=== PATIENT | male | born 1950 | race American Indian/Alaskan Native ===

== ENCOUNTER 2017-01-12 15:30 | Outpatient (CLI) | payer MEDICARE ==
--- NOTE | 2017-01-12 16:45 | Fluoroscopy Report ---
GI series: Patient with cerebral palsy, no reflux presenting with vomiting and difficulty keeping food down at halfway. Accompanied by his sister. The patient is unable to stand. He was placed on his right side in a horizontal position on x-ray table. He was given liquid barium which he was able to swallow without difficulty. The cervical and thoracic esophagus distended normally although evaluation was limited to this position. There is a broad hiatus hernia with rapid passage of contrast through the esophagus into the stomach. There is rapid transit from stomach into normal-appearing small bowel. No gross evidence of ulceration identified in 2 projections. The patient was rotated toward his right side and given water gross reflux was demonstrated. Impressions: Hiatus hernia with reflux. Recommendation: Speech therapy to evaluate his ability to swallow various consistencies of material. The patient should be in the upright position or on his left side when being fed to minimize reflux. These findings have been explained to the patient's sister.
== END 2017-01-12 15:31 | disposition home or self-care (01) ==
LOC: FLUORO 15:30
PROVIDERS: ATTEND Internal Medicine
DX: K21.9 Gastro-esophageal reflux disease without esophagitis (principal); K44.9 Diaphragmatic hernia without obstruction or gangrene; I73.9 Peripheral vascular disease, unspecified; G80.9 Cerebral palsy, unspecified; F79 Unspecified intellectual disabilities; R56.9 Unspecified convulsions; G11.1 Early-onset cerebellar ataxia; R60.9 Edema, unspecified; M43.8X9 Other specified deforming dorsopathies, site unspecified; R29.3 Abnormal posture
CPT/HCPCS: 74240

== ENCOUNTER 2018-02-02 18:41 | Emergency (ER) | payer MEDICARE ==
[2018-02-02] MEDS ORDERED: NACL 0.9% 1000 ML 1,000 ML IV ONE (20:22)
[2018-02-02] MEDS ORDERED: ZOFRAN IV ONE ×2 (20:28→21:58)
--- NOTE | 2018-02-02 20:35 | Emergency Department Report ---
ED General Adult HPI - General Chief complaint: Nausea/Vomiting/Diarrhea Stated complaint: NAUSEA/VOMITING Time Seen by Provider: 02/02/18 20:01 Source: family, EMS Mode of arrival: Stretcher Limitations: Physical Limitation - History of Present Illness Initial comments: Patient presented to the emergency department via EMS from a local half-way for vomiting that started yesterday. Per the patient's sisters he began vomiting yesterday and has not been able to keep anything down since that time. They denied the patient showing signs of pain. Patient has a history of seizures and is not ambulatory for unknown reasons. The patient's sisters state he began to become less and less ambulatory over the last 5 years to the point where he couldn't walk. - Related Data Home Medications Medication Instructions Recorded Confirmed Last Taken Pantoprazole [Protonix] 40 mg PO QDAY 05/02/13 05/02/13 Unknown Previous Rx's Medication Instructions Recorded Last Taken Type Divalproex Dr [Depakote Dr] 125 mg PO BID #60 tablet 05/09/13 Unknown Rx Docusate Sodium [Colace CAP] 100 mg PO BID #60 capsule 05/09/13 Unknown Rx Furosemide [Lasix] 40 mg PO DAILY #30 tablet 05/09/13 Unknown Rx Metoclopramide [Reglan TAB] 10 mg PO BID #30 tablet 05/09/13 Unknown Rx Phenytoin [Dilantin] 100 mg PO BID #30 capsule 05/09/13 Unknown Rx Ondansetron [Zofran Odt] 4 mg PO Q6HR PRN #12 tab.rapdis 02/02/18 Unknown Rx Sulfamethoxazole/Trimethoprim 1 each PO BID #14 tablet 02/02/18 Unknown Rx [Bactrim DS TAB] Allergies Allergy/AdvReac Type Severity Reaction Status Date / Time No Known Allergies Allergy Verified 05/02/13 21:38 ED Review of Systems ROS: Stated complaint: NAUSEA/VOMITING Other details as noted in HPI Comment: able to assess due to the patient's inability to speak ED Past Medical Hx - Past Medical History Hx Congestive Heart Failure: No Hx Diabetes: No Hx GERD: Yes Hx Liver Disease: Yes (biliary stones) Hx Seizures: Yes Hx Kidney Stones: Yes Hx Asthma: No Hx COPD: No Additional medical history: gallstones, cerebral palsy. - Surgical History Hx Cholecystectomy: Yes Hx Appendectomy: Yes - Social History Smoking Status: Never Smoker Substance Use Type: None - Medications Home Medications: Home Medications Medication Instructions Recorded Confirmed Last Taken Type Pantoprazole [Protonix] 40 mg PO QDAY 05/02/13 05/02/[address] [Depakote Dr] 125 mg PO BID #60 tablet 05/09/13 Unknown Rx Docusate Sodium [Colace CAP] 100 mg PO BID #60 capsule 05/09/13 Unknown Rx Furosemide [Lasix] 40 mg PO DAILY #30 tablet 05/09/13 Unknown Rx Metoclopramide [Reglan TAB] 10 mg PO BID #30 tablet 05/09/13 Unknown Rx Phenytoin [Dilantin] 100 mg PO BID #30 capsule 05/09/13 Unknown Rx Ondansetron [Zofran Odt] 4 mg PO Q6HR PRN #12 tab.rapdis 02/02/18 Unknown Rx Sulfamethoxazole/Trimethoprim 1 each PO BID #14 tablet 02/02/18 Unknown Rx [Bactrim DS TAB] ED Physical Exam - General Limitations: Physical Limitation General appearance: alert, in no apparent distress - Head Head exam: Present: atraumatic, normocephalic - Eye Eye exam: Present: normal appearance, PERRL, EOMI - ENT ENT exam: Present: mucous membranes moist - Neck Neck exam: Present: normal inspection - Respiratory Respiratory exam: Present: normal lung sounds bilaterally. Absent: respiratory distress, wheezes, rales, rhonchi - Cardiovascular Cardiovascular Exam: Present: normal rhythm, other (slightly tachycardic heart rate is 102). Absent: systolic murmur, diastolic murmur, rubs, gallop - GI/Abdominal GI/Abdominal exam: Present: soft, normal bowel sounds. Absent: distended, tenderness - Rectal Rectal exam: Present: deferred - Extremities Exam Extremities exam: Absent: pedal edema, joint swelling - Neurological Exam Neurological exam: Present: alert, other (not able to assess completely due to the patient's baseline status) - Psychiatric Psychiatric exam: Present: other (not able to assess due to the patient's baseline status) - Skin Skin exam: Present: warm, dry, intact, normal color. Absent: rash ED Course Vital Signs 02/02/18 02/02/18 20:06 21:50 Temperature 98.3 F 98.3 F Pulse Rate 105 H 100 H Respiratory 14 14 Rate Blood Pressure 98/68 Blood Pressure 98/68 101/60 [Right] O2 Sat by Pulse 98 96 Oximetry ED Medical Decision Making - Lab Data Result diagrams: 02/02/18 20:39 02/02/18 20:39 - Medical Decision Making Patient had relief of symptoms with IV fluids and IV Zofran Results of the patient's laboratory studies and CT scan were discussed with the patient's sisters Plan is discharge patient home on antibiotics for UTI and Zofran for the nausea Critical care attestation.: If time is entered above; I have spent that time in minutes in the direct care of this critically ill patient, excluding procedure time. ED Disposition Clinical Impression: UTI (urinary tract infection), Nausea & vomiting Disposition: - TO HOME OR SELFCARE Is pt being admited?: No Does the pt Need Aspirin: No Condition: Fair Instructions: Urinary Tract Infection in Men (ED), Acute Nausea and Vomiting ( ED) Prescriptions: Ondansetron [Zofran Odt] 4 mg PO Q6HR PRN #12 tab.rapdis PRN Reason: Nausea Sulfamethoxazole/Trimethoprim [Bactrim DS TAB] 1 each PO BID #14 tablet Referrals: PRIMARY CARE, [Primary Care Provider] - 3-5 Days MURALI BARAHONA MD [Staff Physician] - 3-5 Days Time of Disposition: 22:53
[2018-02-02 20:54] LABS: Basophils # (Auto) 0.1 K/mm3 (0.0-0.1); Basophils % (Auto) 0.5 % (0.0-1.8); Eosinophils # (Auto) 0.1 K/mm3 (0.0-0.4); Eosinophils % (Auto) 0.6 % (0.0-4.3); Hematocrit 49.2 % (35.5-45.6); Hemoglobin 16.3 gm/dl (11.8-15.2); Lymphocytes % (Auto) 6.5 % (13.4-35.0); Mean Corpuscular HGB Conc 33 % (32-34); Mean Corpuscular Hemoglobin 32 pg (28-32); Mean Corpuscular Volume 95 fl (84-94); Monocytes # (Auto) 0.8 K/mm3 (0.0-0.8); Monocytes % (Auto) 5.3 % (0.0-7.3); Platelet Count 163 K/mm3 (140-440); Red Blood Count 5.19 M/mm3 (3.65-5.03); Red Cell Distribution Width 14.1 % (13.2-15.2)
[2018-02-02 21:06] LABS: Albumin 3.4 g/dL (3.9-5); Calcium 8.9 mg/dL (8.4-10.2)
--- NOTE | 2018-02-02 21:30 | Cat Scan Report ---
FINAL REPORT PROCEDURE: CT ABDOMEN PELVIS WO CON TECHNIQUE: Computerized axial tomography of the abdomen and pelvis was performed without intravenous contrast. This study is performed without intravascular contrast material and its sensitivity for abdominal and pelvic pathology, including neoplasms, inflammation, abscess, free fluid, thrombosis, arterial dissection and infarction, is reduced compared with a contrast enhanced study. HISTORY: vomiting COMPARISON: No prior studies are available for comparison. FINDINGS: Visualized lower thorax: No significant abnormality. Liver: Normal size and attenuation. Spleen: Normal size and attenuation. Gallbladder and biliary system: There has been a cholecystectomy.. Pancreas: Normal. Adrenals: Normal. Kidneys: There is a 4 millimeter stone at the left ureterovesical junction causing moderate left hydronephrosis and hydroureter. There are stones in the left kidney measuring up to 2 centimeters in diameter. Right kidney and ureter are unremarkable.. GI tract: There is no bowel obstruction, colitis or enteritis. There is a large amount of stool in the sigmoid and rectum. The appendix is not discretely identified.. Lymph nodes and mesentery: Normal. Vasculature: Normal. Bladder: Normal. Reproductive organs: Normal. Peritoneum: There is no ascites, free air, abscess or adenopathy.. Musculoskeletal structures: No significant abnormality. Other: None. IMPRESSION: There has been a cholecystectomy.. There is a 4 millimeter stone at the left ureterovesical junction causing moderate left hydronephrosis and hydroureter. There are stones in the left kidney measuring up to 2 centimeters in diameter. Right kidney and ureter are unremarkable.. There is no bowel obstruction, colitis or enteritis. There is a large amount of stool in the sigmoid and rectum. The appendix is not discretely identified.. There is no ascites, free air, abscess or adenopathy.. .
[2018-02-02 22:05] LABS: Amorphous Crystals,Urine 1+; Bilirubin,Urine NEG (Negative); Blood,Urine MOD (Negative); Color,Urine Yellow (Yellow)
[2018-02-02 23:04] VITALS: BP 120/66
== END 2018-02-03 02:17 | disposition home or self-care (01) ==
LOC: ED 18:41
DX: N39.0 Urinary tract infection, site not specified (principal); K21.9 Gastro-esophageal reflux disease without esophagitis; Z90.49 Acquired absence of other specified parts of digestive tract
CPT/HCPCS: 36415; 74176; 80053; 81001; 83690; 85025; 96361; 96374; 96376; 99284; J2405; J7030; 96375

== ENCOUNTER 2018-11-17 18:33 | Inpatient (IN) | payer MEDICARE ==
[2018-11-17] MEDS ORDERED: NACL 0.9% 500 ML 500 ML IV ONE (18:47)
[2018-11-17] MEDS ORDERED: NACL 0.9% 1000 ML IV ONE (18:58)
[2018-11-17 19:07] LABS: Basophils # (Auto) 0.1 K/mm3 (0.0-0.1); Basophils % (Auto) 0.4 % (0.0-1.8); Eosinophils # (Auto) 0.1 K/mm3 (0.0-0.4); Eosinophils % (Auto) 0.9 % (0.0-4.3); Hematocrit 38.3 % (35.5-45.6); Hemoglobin 12.9 gm/dl (11.8-15.2); Lymphocytes # (Auto) 1.2 K/mm3 (1.2-5.4); Lymphocytes % (Auto) 8.1 % (13.4-35.0); Mean Corpuscular HGB Conc 34 % (32-34); Mean Corpuscular Volume 95 fl (84-94); Monocytes # (Auto) 1.1 K/mm3 (0.0-0.8); Monocytes % (Auto) 7.5 % (0.0-7.3); Platelet Count 236 K/mm3 (140-440); Red Blood Count 4.02 M/mm3 (3.65-5.03); Red Cell Distribution Width 14.1 % (13.2-15.2)
--- NOTE | 2018-11-17 19:08 | Emergency Department Report ---
ED General Adult HPI - General Chief complaint: Altered Mental Status Stated complaint: GENERAL WEAKNESS Time Seen by Provider: 11/17/18 18:57 Source: EMS Mode of arrival: Stretcher Limitations: Altered Mental Status - History of Present Illness Initial comments: Mr. Marsh is a 68 yo male with hx of cerebral palsy, seizure, PVD, intellectual disability, cerebellar ataxia, GERD, UTI, dysphagia who presents with poor appetite and seizures. Hx obtained from EMS, sister, SNF document, EMR. DBP low 41 mm Hg at SNF. 2 seizures witnessed within the last 24 hours. Sister explained that Mr. Marsh not been himself. He is nonverbal. But he normally is able to get into wheelchair. He is able to feed himself. He has been unresponsive and foaming at the mouth recently. Recent watery diarrhea. Sister is the clinical decision maker. She desires comfort care only. She does not desire aggressive end-of-life care such as intubation or feeding tube. She explained that he has "suffered enough". She just wants to make sure that he is comfortable. -: Gradual, days(s) (1) Treatments Prior to Arrival: none - Related Data Home Medications Medication Instructions Recorded Confirmed Last Taken Pantoprazole [Protonix] 40 mg PO QDAY 05/02/13 05/02/13 Unknown Previous Rx's Medication Instructions Recorded Last Taken Type Divalproex Dr [Depakote Dr] 125 mg PO BID #60 tablet 05/09/13 Unknown Rx Docusate Sodium [Colace CAP] 100 mg PO BID #60 capsule 05/09/13 Unknown Rx Furosemide [Lasix] 40 mg PO DAILY #30 tablet 05/09/13 Unknown Rx Metoclopramide [Reglan TAB] 10 mg PO BID #30 tablet 05/09/13 Unknown Rx Phenytoin [Dilantin] 100 mg PO BID #30 capsule 05/09/13 Unknown Rx Ondansetron [Zofran Odt] 4 mg PO Q6HR PRN #12 tab.rapdis 02/02/18 Unknown Rx Sulfamethoxazole/Trimethoprim 1 each PO BID #14 tablet 02/02/18 Unknown Rx [Bactrim DS TAB] Allergies Allergy/AdvReac Type Severity Reaction Status Date / Time No Known Allergies Allergy Verified 05/02/13 21:38 ED Review of Systems ROS: Stated complaint: GENERAL WEAKNESS Other details as noted in HPI Comment: Unobtainable due to pts medical conditions (nonverbal status) ED Past Medical Hx - Past Medical History Previous Medical History?: Yes Hx Congestive Heart Failure: No Hx Diabetes: No Hx GERD: Yes Hx Liver Disease: Yes (biliary stones) Hx Seizures: Yes Hx Kidney Stones: Yes Hx Asthma: No Hx COPD: No Additional medical history: gallstones. cerebral palsy. peripheral vascular disease. unspecified intellectual disabilities. early onset cerebellar ataxia. abnormal posture. unspecified lack of coordination. dysphagia, oropharyngeal phase. edema - Surgical History Past Surgical History?: Yes Hx Cholecystectomy: Yes Hx Appendectomy: Yes - Social History Smoking Status: Never Smoker Substance Use Type: None - Medications Home Medications: Home Medications Medication Instructions Recorded Confirmed Last Taken Type Pantoprazole [Protonix] 40 mg PO QDAY 05/02/13 05/02/[address] [Depakote Dr] 125 mg PO BID #60 tablet 05/09/13 Unknown Rx Docusate Sodium [Colace CAP] 100 mg PO BID #60 capsule 05/09/13 Unknown Rx Furosemide [Lasix] 40 mg PO DAILY #30 tablet 05/09/13 Unknown Rx Metoclopramide [Reglan TAB] 10 mg PO BID #30 tablet 05/09/13 Unknown Rx Phenytoin [Dilantin] 100 mg PO BID #30 capsule 05/09/13 Unknown Rx Ondansetron [Zofran Odt] 4 mg PO Q6HR PRN #12 tab.rapdis 02/02/18 Unknown Rx Sulfamethoxazole/Trimethoprim 1 each PO BID #14 tablet 02/02/18 Unknown Rx [Bactrim DS TAB] ED Physical Exam - General Limitations: Altered Mental Status General appearance: lethargic, other (contracted extremities shaking) - Head Head exam: Present: atraumatic, normocephalic - Eye Eye exam: Absent: scleral icterus, conjunctival injection - ENT ENT exam: Present: mucous membranes dry - Neck Neck exam: Present: normal inspection - Respiratory Respiratory exam: Present: normal lung sounds bilaterally. Absent: respiratory distress, wheezes, rales, rhonchi - Cardiovascular Cardiovascular Exam: Present: normal rhythm, tachycardia, normal heart sounds. Absent: systolic murmur, diastolic murmur, rubs, gallop - GI/Abdominal GI/Abdominal exam: Present: soft, normal bowel sounds. Absent: distended, tenderness, guarding, rebound - Extremities Exam Extremities exam: Present: other (contracted extremities) - Back Exam Back exam: Present: normal inspection - Neurological Exam Neurological exam: Present: other (nonverbal lethargic) - Psychiatric Psychiatric exam: Present: flat affect - Skin Skin exam: Present: warm, dry, intact, normal color. Absent: rash ED Course Vital Signs 11/17/18 11/17/18 11/17/18 18:40 19:16 19:30 Temperature 99.4 F Pulse Rate 109 H 151 H Respiratory 20 23 Rate Blood Pressure 91/61 192/169 O2 Sat by Pulse 96 91 95 Oximetry 11/17/18 11/17/18 11/17/18 19:46 20:28 20:30 Temperature Pulse Rate 99 H 102 H Respiratory 14 Rate Blood Pressure 157/97 100/64 O2 Sat by Pulse 98 95 95 Oximetry 11/17/18 11/17/18 20:45 21:00 Temperature Pulse Rate 98 H 101 H Respiratory 8 L 11 L Rate Blood Pressure 103/57 88/46 O2 Sat by Pulse 98 97 Oximetry ED Medical Decision Making - Lab Data Result diagrams: 11/17/18 18:50 11/17/18 18:56 - Radiology Data Radiology results: report reviewed AP portable chest one view according to radiology impression: No acute process no infiltrate I personally reviewed the images Head CT without contrast: No acute intracranial abnormality according to radiology impression, chronic ethmoid sinusitis reported - Medical Decision Making Mr. Marsh presents with acute encephalopathy multifactorial, UTI, sepsis, hypoglycemia, status epilepticus given IV fluid, IV antibiotics, IV antiepileptics IV dextrose. I had an extensive conversation with nurse practitioner who has been involved with care of Mr. Marsh who aslo spoke with clinical decision maker No. The [employer] in charge of his care was concerned and surprised that he is admitted. According to POLST read to me over the phone, DNR/DNI status. No hospitalization. Hospice care should be initiated if he had a medical condition requiring hospitalization according to advance directive. Upon arrival the sister No did state that she wanted comfort care only. There are now 5 siblings at the bedside who appeared to be less involved in care. There appears to be a misunderstanding among the family members. Clinical decision maker No is quite frustrated. With discussion of primary care provider, hospitalist and No, decision has been made to for observation admission overnight and likely discharged back to correction facility for supportive care for IV fluids and IV antibiotics. In the setting of sepsis and septic shock, I will not place a central venous catheter. Will not institute pressure therapy. The sister stated "he has suffered enough". Admitted in critical condition for observation, will need palliative care at SNF Critical Care Time: Yes Critical care time in (mins) excluding proc time.: 70 Critical care attestation.: If time is entered above; I have spent that time in minutes in the direct care of this critically ill patient, excluding procedure time. 70 minutes of critical care time excluding procedures were used in the care of the patient. Patient required multiple assessments and interventions. I reviewed the electronic medical record. I spoke with consultants involved in the care of the patient. I updated several family members at the bedside.. ED Disposition Clinical Impression: Acute encephalopathy, UTI (urinary tract infection), Hypoglycemia, Status epilepticus, Cerebral palsy, Sepsis, Septic shock, CKD (chronic kidney disease) Disposition: OP ADMIT IP TO THIS HOSP Is pt being admited?: Yes Does the pt Need Aspirin: No Condition: Stable Referrals: CLIFF VERNON MD [Primary Care Provider] - 3-5 Days
[2018-11-17 19:18] LABS: INR 1.03 (0.87-1.13)
[2018-11-17 19:29] LABS: Albumin 3.4 g/dL (3.9-5); Calcium 8.7 mg/dL (8.4-10.2)
[2018-11-17] MEDS ORDERED: D50W (25GM) Vial IV ONE (19:34)
[2018-11-17] MEDS: MAXIPIME/NS 2 GM/100 ML 2 GM/100 ML BAG IV SCH ×2 (19:42→22:07)
--- NOTE | 2018-11-17 20:21 | XRay Report ---
PROCEDURE: XR CHEST 1V AP TECHNIQUE: Chest radiograph single view. HISTORY: possible Sepsis COMPARISONS: None . FINDINGS: Heart: Normal. Mediastinum/Vessels: Aorta is tortuous. Lungs/Pleural space: No focal infiltrate. Elevation of the right hemidiaphragm. Bony thorax: No acute osseous abnormality. Life support devices: Monitoring devices. IMPRESSION: No acute cardiopulmonary abnormality. This document is electronically signed by Osbaldo Ventura MD., Nov 17 2018 08:19:22 PM ET
--- NOTE | 2018-11-17 20:29 | Cat Scan Report ---
PROCEDURE: CT HEAD/BRAIN WO CON TECHNIQUE: Computerized tomography of the head was performed without contrast material. CT DOSE LENGTH PRODUCT: 1733.5 mGycm HISTORY: ams COMPARISONS: None . FINDINGS: Skull and scalp: Normal . Paranasal sinuses: Mild degree mucosal thickening is noted involving bilateral ethmoid sinuses. . Ventricles and subarachnoid spaces: Normal . Cerebrum: No evidence of hemorrhage, acute infarction or mass . Cerebellum and brainstem: No evidence of hemorrhage, acute infarction or mass . Vasculature: Normal . Other: None . ASPECTS: 10 IMPRESSION: No acute intracranial abnormality Chronic ethmoid sinusitis. . This document is electronically signed by Richard Landry MD., Nov 17 2018 08:27:07 PM ET
[2018-11-17] MEDS ORDERED: KEPPRA 1,000 MG/NS 0.75% 100ML 1,000 MG/100 ML BAG IV ONE (20:56)
[2018-11-17] MEDS ORDERED: D50W (25GM) Syringe IV ONE (21:00)
[2018-11-17 22:12] LABS: Amorphous Crystals,Urine 1+; Bilirubin,Urine NEG (Negative); Blood,Urine MOD (Negative); Color,Urine Amber (Yellow)
[2018-11-17 22:13] LABS: WBC,Urine > 182.0 /HPF (0.0-6.0)
[2018-11-17] MEDS ORDERED: ZOFRAN ONE (22:52)
[2018-11-17] MEDS ORDERED: TYLENOL PO PRN (23:51)
[2018-11-17] MEDS ORDERED: D50W (25GM) Vial IV PRN (23:58)
--- NOTE | 2018-11-18 01:55 | History and Physical Report ---
History of Present Illness Date of examination: 11/17/18 Date of admission: 11/17/18 23:51 Chief complaint: Seizures and altered mental status History of present illness: Mr. Marsh is a 68 yo male -Monegasque male with hx of cerebral palsy, seizure, PVD, intellectual disability, cerebellar ataxia, GERD and dysphagia who was brought to the ED from SNF by EMS on account of recurrent seizures, AMS and poor appetite. Patient is unable to provide history and no family was available to provide history. Per ER chart, patient's DBP was low, 41 mm Hg at the SNF. 2 seizures were also witnessed at the facility within the last 24 hours. It was reported that the patient's sister explained that Mr. Marsh had not been himself lately. He is nonverbal, but he normally was able to get into his wheelchair and feed himself. He has been unresponsive and foaming at the mouth. Recent watery diarrhea was also noted. Patient's sister is the clinical decision maker. She desires comfort care only. She does not want aggressive end-of-life care such as intubation or feeding tube. Past History Past Medical History: GERD, PVD, seizures, other (cerebral palsy, intellectual disability, cerebellar ataxia, and dysphagia) Past Surgical History: appendectomy, cholecystectomy Social history: no significant social history (no reported history of tobacco, alcohol or illicit drug use) Family history: other (could not be obtained because patient is nonverbal) Medications and Allergies Allergies Allergy/AdvReac Type Severity Reaction Status Date / Time No Known Allergies Allergy Verified 05/02/13 21:38 Home Medications Medication Instructions Recorded Confirmed Last Taken Type Pantoprazole [Protonix] 40 mg PO QDAY 05/02/13 05/02/13 Unknown History Divalproex [Malena Nguyen] 125 mg PO BID #60 tablet 05/09/13 Unknown Rx Docusate Sodium [Colace CAP] 100 mg PO BID #60 capsule 05/09/13 Unknown Rx Furosemide [Lasix] 40 mg PO DAILY #30 tablet 05/09/13 Unknown Rx Metoclopramide [Reglan TAB] 10 mg PO BID #30 tablet 05/09/13 Unknown Rx Phenytoin [Dilantin] 100 mg PO BID #30 capsule 05/09/13 Unknown Rx Ondansetron [Zofran Odt] 4 mg PO Q6HR PRN #12 tab.rapdis 02/02/18 Unknown Rx Sulfamethoxazole/Trimethoprim 1 each PO BID #14 tablet 02/02/18 Unknown Rx [Bactrim DS TAB] Active Meds: Active Medications Acetaminophen (Tylenol) 650 mg PO Q4H PRN PRN Reason: Pain MILD(1-3)/Fever >100.5/WINKLER Dextrose (D50w (25gm) Vial) 50 gm IV PRN PRN PRN Reason: Hypoglycemia Last Admin: 11/18/18 01:19 Dose: 50 gm Documented by: Cefepime HCl (Maxipime/Ns 2 Gm/100 Ml) 2 gm in 100 mls @ 200 mls/hr IV Q8HR KANU; Protocol Last Admin: 11/17/18 22:07 Dose: Not Given Documented by: Dextrose/Sodium Chloride (D5ns) 1,000 mls @ 150 mls/hr IV DIRECT KANU Ondansetron HCl (Zofran) 4 mg IV Q8H PRN PRN Reason: Nausea And Vomiting Sodium Chloride (Sodium Chloride Flush Syringe 10 Ml) 10 ml IV BID KANU Sodium Chloride (Sodium Chloride Flush Syringe 10 Ml) 10 ml IV PRN PRN PRN Reason: LINE FLUSH Review of Systems ROS unobtainable: due to mental status (patient is nonverbal) Exam - Constitutional Vitals: Temp Pulse Resp BP Pulse Ox 99.4 F 94 H 12 93/55 98 11/17/18 18:40 11/18/18 01:00 11/18/18 01:00 11/18/18 01:00 11/18/18 01:00 General appearance: Present: no acute distress - EENT Eyes: Present: PERRL, EOM intact ENT: clear oral mucosa - Neck Neck: Present: supple - Respiratory Respiratory effort: normal Respiratory: bilateral: CTA - Cardiovascular Rhythm: regular Heart Sounds: Present: S1 & S2 - Extremities Extremity abnormal: edema (left lower extremity) - Abdominal General gastrointestinal: Present: soft, non-tender, non-distended, normal bowel sounds Male genitourinary: Present: deferred - Integumentary Integumentary: Present: clear, warm, dry - Musculoskeletal Musculoskeletal: other (contracted bilateral upper extremities) - Psychiatric Psychiatric: other (could not be assessed because patient is nonverbal) - Neurologic Neurologic: other (patient is nonverbal) Results - Labs CBC & Chem 7: 05/10/19 18:50 11/17/18 18:56 Labs: Laboratory Last Values WBC 14.3 K/mm3 (4.5-11.0) H 11/17/18 18:50 RBC 4.02 M/mm3 (3.65-5.03) 11/17/18 18:50 Hgb 12.9 gm/dl (11.8-15.2) 11/17/18 18:50 Hct 38.3 % (35.5-45.6) 11/17/18 18:50 MCV 95 fl (84-94) H 11/17/18 18:50 MCH 32 pg (28-32) 11/17/18 18:50 MCHC 34 % (32-34) 11/17/18 18:50 RDW 14.1 % (13.2-15.2) 11/17/18 18:50 Plt Count 236 K/mm3 (140-440) 11/17/18 18:50 Lymph % (Auto) 8.1 % (13.4-35.0) L 11/17/18 18:50 [place] % (Auto) 7.5 % (0.0-7.3) H 11/17/18 18:50 Eos % (Auto) 0.9 % (0.0-4.3) 11/17/18 18:50 Baso % (Auto) 0.4 % (0.0-1.8) 11/17/18 18:50 Lymph # 1.2 K/mm3 (1.2-5.4) 11/17/18 18:50 [place] # 1.1 K/mm3 (0.0-0.8) H 11/17/18 18:50 Eos # 0.1 K/mm3 (0.0-0.4) 11/17/18 18:50 Baso # 0.1 K/mm3 (0.0-0.1) 11/17/18 18:50 Seg Neutrophils % 83.1 % (40.0-70.0) H 11/17/18 18:50 Seg Neutrophils # 11.8 K/mm3 (1.8-7.7) H 11/17/18 18:50 PT 14.1 Sec. (12.2-14.9) 11/17/18 18:56 INR 1.03 (0.87-1.13) 11/17/18 18:56 VBG pH 7.395 (7.320-7.420) 11/17/18 18:56 Sodium 139 mmol/L (137-145) 11/17/18 18:56 Potassium 3.9 mmol/L (3.6-5.0) 11/17/18 18:56 Chloride 97.9 mmol/L (98-107) L 11/17/18 18:56 Carbon Dioxide 21 mmol/L (22-30) L 11/17/18 18:56 24 mmol/L 11/17/18 18:56 BUN 37 mg/dL (9-20) H 11/17/18 18:56 2.5 mg/dL (0.8-1.5) H 11/17/18 18:56 Estimated GFR 31 ml/min 11/17/18 18:56 15 % 11/17/18 18:56 Glucose 58 mg/dL (75-100) L 11/17/18 18:56 POC Glucose 64 (70-105) L 11/18/18 01:10 Lactic Acid 1.40 mmol/L (0.7-2.0) 11/17/18 21:50 Calcium 8.7 mg/dL (8.4-10.2) 11/17/18 18:56 0.60 mg/dL (0.1-1.2) 11/17/18 18:56 AST 80 units/L (5-40) H 11/17/18 18:56 ALT 38 units/L (7-56) 11/17/18 18:56 109 units/L (35-129) 11/17/18 18:56 7.0 g/dL (6.3-8.2) 11/17/18 18:56 3.4 g/dL (3.9-5) L 11/17/18 18:56 0.9 % 11/17/18 18:56 19 units/L (13-60) 11/17/18 20:18 [place] (Yellow) 11/17/18 21:39 Cloudy (Clear) 11/17/18 21:39 7.0 (5.0-7.0) 11/17/18 21:39 Ur Specific [place] 1.011 (1.003-1.030) 11/17/18 21:39 100 mg/dl mg/dL (Negative) 11/17/18 21:39 Neg mg/dL (Negative) 11/17/18 21:39 Tr mg/dL (Negative) 11/17/18 21:39 Mod (Negative) 11/17/18 21:39 Neg (Negative) 11/17/18 21:39 Neg (Negative) 11/17/18 21:39 2.0 mg/dL (<2.0) 11/17/18 21:39 Ur Leukocyte Esterase Mod (Negative) 11/17/18 21:39 > 182.0 /HPF (0.0-6.0) H 11/17/18 21:39 52.0 /HPF (0.0-6.0) 11/17/18 21:39 3+ /HPF 11/17/18 21:39 Amorphous Crystals 1+ 11/17/18 21:39 Phenytoin 15.7 ug/mL (10.0-20.0) 11/17/18 21:17 Assessment and Plan Assessment and plan: Severe sepsis secondary to UTI -On IV antibiotic -Blood and urine cultures pending Hypotension due to sepsis -Blood pressure responsive to IV fluid, will monitor Hypoglycemia -On dextrose IV fluid and hypoglycemic protocol Status epilepticus -Probably secondary to the hypoglycemia -Status post loading dose of IV Keppra -Continue IV Keppra and seizure precautions Acute metabolic encephalopathy -Head CT scan negative Transaminitis -Probably secondary to the sepsis Chronic kidney disease stage IV with metabolic acidosis -Creatinine level at baseline DVT prophylaxis with SCD Disposition: Patient is DO NOT RESUSCITATE/DO NOT INTUBATE. He will be placed in observation status with plan for discharge back to the residential facility on hospice care. Time spent: 40 minutes
[2018-11-18] MEDS: D5NS 1,000 ML IV SCH ×3 (02:02→17:13)
[2018-11-18] MEDS: SODIUM CHLORIDE FLUSH SYRINGE 10 ML IV PRN (02:03)
[2018-11-18] MEDS: MAXIPIME/NS 2 GM/100 ML 2 GM/100 ML BAG IV SCH ×2 (06:05→17:13)
[2018-11-18] MEDS ORDERED: NACL 0.9% 1000 ML 1,000 ML IV ONE (09:00)
[2018-11-18] MEDS ORDERED: NACL 0.9% 500 ML 500 ML IV ONE (10:00)
[2018-11-18] MEDS: SODIUM CHLORIDE FLUSH SYRINGE 10 ML IV SCH ×2 (11:04→21:49)
[2018-11-18] MEDS: KEPPRA 1,000 MG in D5W 100 ML IV SCH ×2 (11:04→21:49)
--- NOTE | 2018-11-18 11:52 | Progress Note ---
Assessment and Plan Assessment and plan: Mr. Marsh is a 68 yo male -[place]ir[place] male with hx of cerebral palsy, seizure, PVD, intellectual disability, cerebellar ataxia, GERD and dysphagia who was brought to the ED from SNF by EMS on account of recurrent seizures, AMS and poor appetite. Patient is unable to provide history and no family was available to provide history. Per ER chart, patient's DBP was low, 41 mm Hg at the SNF. 2 seizures were also witnessed at the facility within the last 24 hours. It was reported that the patient's sister explained that Mr. Marsh had not been himself lately. He is nonverbal, but he normally was able to get into his wheelchair and feed himself. Severe sepsis secondary to UTI -On IV antibiotic -Blood and urine cultures pending Hypotension due to sepsis -Blood pressure responsive to IV fluid, will monitor -I gave him a bolus this morning and BPs on the low side of normal Hypoglycemia -On dextrose IV fluid and hypoglycemic protocol Status epilepticus -Probably secondary to the hypoglycemia -Continue IV Keppra and seizure precautions Acute metabolic encephalopathy -Head CT scan negative Transaminitis -Probably secondary to the sepsis Chronic kidney disease stage IV with metabolic acidosis -Creatinine level at baseline DVT prophylaxis with SCD Disposition: Patient is DO NOT RESUSCITATE/DO NOT INTUBATE. Once stable discharge back to the correction facility on hospice care. History Interval history: Patient was seen and evaluated this morning. Patient nonverbal. Nurses reported that his blood pressure was low and I gave him a bolus Hospitalist Physical - Constitutional Vitals: Temp Pulse Resp BP Pulse Ox 98.0 F 80 22 83/52 100 11/18/18 08:14 11/18/18 08:14 11/18/18 08:14 11/18/18 09:54 11/18/18 08:14 General appearance: Present: no acute distress Results - Labs CBC & Chem 7: 11/17/18 18:50 11/17/18 18:56 Labs: Laboratory Last Values WBC 14.3 K/mm3 (4.5-11.0) H 11/17/18 18:50 RBC 4.02 M/mm3 (3.65-5.03) 11/17/18 18:50 Hgb 12.9 gm/dl (11.8-15.2) 11/17/18 18:50 Hct 38.3 % (35.5-45.6) 11/17/18 18:50 MCV 95 fl (84-94) H 11/17/18 18:50 MCH 32 pg (28-32) 11/17/18 18:50 MCHC 34 % (32-34) 11/17/18 18:50 RDW 14.1 % (13.2-15.2) 11/17/18 18:50 Plt Count 236 K/mm3 (140-440) 11/17/18 18:50 Lymph % (Auto) 8.1 % (13.4-35.0) L 11/17/18 18:50 [place] % (Auto) 7.5 % (0.0-7.3) H 11/17/18 18:50 Eos % (Auto) 0.9 % (0.0-4.3) 11/17/18 18:50 Baso % (Auto) 0.4 % (0.0-1.8) 11/17/18 18:50 Lymph # 1.2 K/mm3 (1.2-5.4) 11/17/18 18:50 [place] # 1.1 K/mm3 (0.0-0.8) H 11/17/18 18:50 Eos # 0.1 K/mm3 (0.0-0.4) 11/17/18 18:50 Baso # 0.1 K/mm3 (0.0-0.1) 11/17/18 18:50 Seg Neutrophils % 83.1 % (40.0-70.0) H 11/17/18 18:50 Seg Neutrophils # 11.8 K/mm3 (1.8-7.7) H 11/17/18 18:50 PT 14.1 Sec. (12.2-14.9) 11/17/18 18:56 INR 1.03 (0.87-1.13) 11/17/18 18:56 VBG pH 7.395 (7.320-7.420) 11/17/18 18:56 Sodium 139 mmol/L (137-145) 11/17/18 18:56 Potassium 3.9 mmol/L (3.6-5.0) 11/17/18 18:56 Chloride 97.9 mmol/L (98-107) L 11/17/18 18:56 Carbon Dioxide 21 mmol/L (22-30) L 11/17/18 18:56 24 mmol/L 11/17/18 18:56 BUN 37 mg/dL (9-20) H 11/17/18 18:56 2.5 mg/dL (0.8-1.5) H 11/17/18 18:56 Estimated GFR 31 ml/min 11/17/18 18:56 15 % 11/17/18 18:56 Glucose 58 mg/dL (75-100) L 11/17/18 18:56 POC Glucose 118 (70-105) H 11/18/18 06:34 Lactic Acid 1.40 mmol/L (0.7-2.0) 11/17/18 21:50 Calcium 8.7 mg/dL (8.4-10.2) 11/17/18 18:56 0.60 mg/dL (0.1-1.2) 11/17/18 18:56 AST 80 units/L (5-40) H 11/17/18 18:56 ALT 38 units/L (7-56) 11/17/18 18:56 109 units/L (35-129) 11/17/18 18:56 7.0 g/dL (6.3-8.2) 11/17/18 18:56 3.4 g/dL (3.9-5) L 11/17/18 18:56 0.9 % 11/17/18 18:56 19 units/L (13-60) 11/17/18 20:18 [place] (Yellow) 11/17/18 21:39 Cloudy (Clear) 11/17/18 21:39 7.0 (5.0-7.0) 11/17/18 21:39 Ur Specific [place] 1.011 (1.003-1.030) 11/17/18 21:39 100 mg/dl mg/dL (Negative) 11/17/18 21:39 Neg mg/dL (Negative) 11/17/18 21:39 Tr mg/dL (Negative) 11/17/18 21:39 Mod (Negative) 11/17/18 21:39 Neg (Negative) 11/17/18 21:39 Neg (Negative) 11/17/18 21:39 2.0 mg/dL (<2.0) 11/17/18 21:39 Ur Leukocyte Esterase Mod (Negative) 11/17/18 21:39 > 182.0 /HPF (0.0-6.0) H 11/17/18 21:39 52.0 /HPF (0.0-6.0) 11/17/18 21:39 3+ /HPF 11/17/18 21:39 Amorphous Crystals 1+ 11/17/18 21:39 Phenytoin 15.7 ug/mL (10.0-20.0) 11/17/18 21:17 Active Medications - Current Medications Current Medications: Generic Name Dose Route Start Last Admin Trade Name Freq PRN Reason Stop Dose Admin Acetaminophen 650 mg 11/17/18 23:51 Tylenol PO Q4H PRN Pain MILD(1-3)/Fever >100.5/WINKLER Dextrose 50 gm 11/17/18 23:58 11/18/18 01:19 D50w (25gm) Vial IV 50 gm PRN PRN Administration Hypoglycemia Dextrose/Sodium Chloride 1,000 mls @ 150 mls/hr 11/17/18 23:45 11/18/18 09:00 D5ns IV 150 mls/hr DIRECT KANU Administration Levetiracetam 1,000 mg/ 110 mls @ 400 mls/hr 11/18/18 10:00 11/18/18 11:04 Dextrose IV 400 mls/hr Q12HR KANU Administration Cefepime HCl 2 gm in 100 mls @ 200 mls/hr 11/18/18 18:00 Maxipime/Ns 2 Gm/100 Ml IV Q12H KANU Protocol Ondansetron HCl 4 mg 11/17/18 23:51 Zofran IV Q8H PRN Nausea And Vomiting Sodium Chloride 10 ml 11/18/18 10:00 11/18/18 11:04 Sodium Chloride Flush Syringe 10 Ml IV 10 ml BID KANU Administration Sodium Chloride 10 ml 11/17/18 23:51 11/18/18 02:03 Sodium Chloride Flush Syringe 10 Ml IV 10 ml PRN PRN Administration LINE FLUSH Nutrition/Malnutrition Assess - Dietary Evaluation Nutrition/Malnutrition Findings: Nutrition Notes Start: 11/18/18 09:40 Freq: Status: Active Protocol: Document 11/18/18 09:41 RD (Rec: 11/18/18 09:55 RD [id number]) Co-Sign 11/18/18 09:41 LP Nutrition Notes Need for Assessment generated from: pipe stress engineer Initial or Follow up Brief Note Other Pertinent Diagnosis AMS, seizures, cerebral palsy, dysphagia Current Diet NPO Subjective/Other Information RD screen for Hx difficulty chewing and skin risk assessment. Emiliano score= 13. Pt family requests only comfort care and refuses tube feeding or intubation. Pt is nonverbal. Waiting for swallow evaluation from RN SANE. Nutrition Intervention Follow-Up By: 11/22/18 Additional Comments f/u: POC
[2018-11-18] MEDS ORDERED: TRIPLE ANTIBIOTIC TP ONE (22:32)
[2018-11-19] MEDS: D5NS 1,000 ML IV SCH ×3 (02:13→21:34)
[2018-11-19] MEDS: MAXIPIME/NS 2 GM/100 ML 2 GM/100 ML BAG IV SCH ×2 (05:08→17:37)
--- NOTE | 2018-11-19 08:25 | Progress Note ---
Assessment and Plan Assessment and plan: Mr. Marsh is a 68 yo male -[place]i male with hx of cerebral palsy, seizure, PVD, intellectual disability, cerebellar ataxia, GERD and dysphagia who was brought to the ED from SNF by EMS on account of recurrent seizures, AMS and poor appetite. Patient is unable to provide history and no family was available to provide history. Per ER chart, patient's DBP was low, 41 mm Hg at the SNF. 2 seizures were also witnessed at the facility within the last 24 hours. It was reported that the patient's sister explained that Mr. Marsh had not been himself lately. He is nonverbal, but he normally was able to get into his wheelchair and feed himself. Severe sepsis secondary to UTI -On IV antibiotic -Blood cx ngtd, urine cx was contaminated Hypotension due to sepsis -Blood pressure responsive to IV fluid, will monitor Hypoglycemia -On dextrose IV fluid and hypoglycemic protocol -was due to anorexia, diet started 11/19 Status epilepticus -Probably secondary to the hypoglycemia -Continue IV Keppra and seizure precautions Acute metabolic encephalopathy -Head CT scan negative Transaminitis -Probably secondary to the sepsis Chronic kidney disease stage IV with metabolic acidosis -Creatinine level at baseline DVT prophylaxis with SCD Disposition: Patient is DO NOT RESUSCITATE/DO NOT INTUBATE. Once stable d ischarge back to the custodial facility on hospice care. History Interval history: Review of systems Constitutional: No fevers, no malaise, no joint pains CVS: No chest pain, no orthopnea, no dyspnea on exertion, no pedal edema GI: No abdominal pain, no diarrhea, no vomiting, no constipation Respiratory: no wheezing, no coughing Hospitalist Physical - Physical exam Narrative exam: General.: Appears well, no distress, nontoxic HEENT: Moist mucous membranes, extraocular muscles intact, no lymphadenopathy Neck: supple Cardiac: S1-S2 heard Lungs: clear to auscultation bilaterally Abdomen: soft , nontender, nondistended, bowel sounds positive Extremities: no edema clubbing or cyanosis Skin: no rash or lesions Neurologic: Demented, Bedbound, opens eyes, turn to voice, tries to communicate by making sounds, but nonverbal Psych: calm, and cooperative - Constitutional Vitals: Temp Pulse Resp BP Pulse Ox 98.5 F 74 12 119/58 96 11/19/18 02:41 11/19/18 03:30 11/19/18 02:41 11/19/18 02:41 11/19/18 02:41 General appearance: Present: no acute distress Results - Labs CBC & Chem 7: 11/17/18 18:50 11/19/18 09:23 Labs: Laboratory Last Values WBC 14.3 K/mm3 (4.5-11.0) H 11/17/18 18:50 RBC 4.02 M/mm3 (3.65-5.03) 11/17/18 18:50 Hgb 12.9 gm/dl (11.8-15.2) 11/17/18 18:50 Hct 38.3 % (35.5-45.6) 11/17/18 18:50 MCV 95 fl (84-94) H 11/17/18 18:50 MCH 32 pg (28-32) 11/17/18 18:50 MCHC 34 % (32-34) 11/17/18 18:50 RDW 14.1 % (13.2-15.2) 11/17/18 18:50 Plt Count 236 K/mm3 (140-440) 11/17/18 18:50 Lymph % (Auto) 8.1 % (13.4-35.0) L 11/17/18 18:50 [place] % (Auto) 7.5 % (0.0-7.3) H 11/17/18 18:50 Eos % (Auto) 0.9 % (0.0-4.3) 11/17/18 18:50 Baso % (Auto) 0.4 % (0.0-1.8) 11/17/18 18:50 Lymph # 1.2 K/mm3 (1.2-5.4) 11/17/18 18:50 [place] # 1.1 K/mm3 (0.0-0.8) H 11/17/18 18:50 Eos # 0.1 K/mm3 (0.0-0.4) 11/17/18 18:50 Baso # 0.1 K/mm3 (0.0-0.1) 11/17/18 18:50 Seg Neutrophils % 83.1 % (40.0-70.0) H 11/17/18 18:50 Seg Neutrophils # 11.8 K/mm3 (1.8-7.7) H 11/17/18 18:50 PT 14.1 Sec. (12.2-14.9) 11/17/18 18:56 INR 1.03 (0.87-1.13) 11/17/18 18:56 VBG pH 7.395 (7.320-7.420) 11/17/18 18:56 Sodium 139 mmol/L (137-145) 11/17/18 18:56 Potassium 3.9 mmol/L (3.6-5.0) 11/17/18 18:56 Chloride 97.9 mmol/L (98-107) L 11/17/18 18:56 Carbon Dioxide 21 mmol/L (22-30) L 11/17/18 18:56 24 mmol/L 11/17/18 18:56 BUN 37 mg/dL (9-20) H 11/17/18 18:56 2.5 mg/dL (0.8-1.5) H 11/17/18 18:56 Estimated GFR 31 ml/min 11/17/18 18:56 15 % 11/17/18 18:56 Glucose 58 mg/dL (75-100) L 11/17/18 18:56 POC Glucose 96 (70-105) 11/19/18 05:33 Lactic Acid 1.40 mmol/L (0.7-2.0) 11/17/18 21:50 Calcium 8.7 mg/dL (8.4-10.2) 11/17/18 18:56 0.60 mg/dL (0.1-1.2) 11/17/18 18:56 AST 80 units/L (5-40) H 11/17/18 18:56 ALT 38 units/L (7-56) 11/17/18 18:56 109 units/L (35-129) 11/17/18 18:56 7.0 g/dL (6.3-8.2) 11/17/18 18:56 3.4 g/dL (3.9-5) L 11/17/18 18:56 0.9 % 11/17/18 18:56 19 units/L (13-60) 11/17/18 20:18 [place] (Yellow) 11/17/18 21:39 Cloudy (Clear) 11/17/18 21:39 7.0 (5.0-7.0) 11/17/18 21:39 Ur Specific [place] 1.011 (1.003-1.030) 11/17/18 21:39 100 mg/dl mg/dL (Negative) 11/17/18 21:39 Neg mg/dL (Negative) 11/17/18 21:39 Tr mg/dL (Negative) 11/17/18 21:39 Mod (Negative) 11/17/18 21:39 Neg (Negative) 11/17/18 21:39 Neg (Negative) 11/17/18 21:39 2.0 mg/dL (<2.0) 11/17/18 21:39 Ur Leukocyte Esterase Mod (Negative) 11/17/18 21:39 > 182.0 /HPF (0.0-6.0) H 11/17/18 21:39 52.0 /HPF (0.0-6.0) 11/17/18 21:39 3+ /HPF 11/17/18 21:39 Amorphous Crystals 1+ 11/17/18 21:39 Phenytoin 15.7 ug/mL (10.0-20.0) 11/17/18 21:17 Active Medications - Current Medications Current Medications: Generic Name Dose Route Start Last Admin Trade Name Freq PRN Reason Stop Dose Admin Acetaminophen 650 mg 11/17/18 23:51 Tylenol PO Q4H PRN Pain MILD(1-3)/Fever >100.5/WINKLER Dextrose 50 gm 11/17/18 23:58 11/18/18 01:19 D50w (25gm) Vial IV 50 gm PRN PRN Administration Hypoglycemia Dextrose/Sodium Chloride 1,000 mls @ 150 mls/hr 11/17/18 23:45 11/19/18 02:13 D5ns IV 150 mls/hr DIRECT KANU Administration Levetiracetam 1,000 mg/ 110 mls @ 400 mls/hr 11/18/18 10:00 11/18/18 21:49 Dextrose IV 400 mls/hr Q12HR KANU Administration Cefepime HCl 2 gm in 100 mls @ 200 mls/hr 11/18/18 18:00 11/19/18 05:08 Maxipime/Ns 2 Gm/100 Ml IV 200 mls/hr Q12H KANU Administration Protocol Ondansetron HCl 4 mg 05/10/19 23:51 Zofran IV Q8H PRN Nausea And Vomiting Sodium Chloride 10 ml 11/18/18 10:00 11/18/18 21:49 Sodium Chloride Flush Syringe 10 Ml IV 10 ml BID KANU Administration Sodium Chloride 10 ml 11/17/18 23:51 11/18/18 02:03 Sodium Chloride Flush Syringe 10 Ml IV 10 ml PRN PRN Administration LINE FLUSH Nutrition/Malnutrition Assess - Dietary Evaluation Nutrition/Malnutrition Findings: Nutrition Notes Start: 11/18/18 09:40 Freq: Status: Active Protocol: Document 11/18/18 09:41 RD (Rec: 11/18/18 09:55 RD [id number]) Co-Sign 11/18/18 09:41 LP Nutrition Notes Need for Assessment generated from: shop lead Initial or Follow up Brief Note Other Pertinent Diagnosis AMS, seizures, cerebral palsy, dysphagia Current Diet NPO Subjective/Other Information RD screen for Hx difficulty chewing and skin risk assessment. Emiliano score= 13. Pt family requests only comfort care and refuses tube feeding or intubation. Pt is nonverbal. Waiting for swallow evaluation from LIGHTOUT EXAMINER. Nutrition Intervention Follow-Up By: 11/22/18 Additional Comments f/u: POC
[2018-11-19] MEDS: KEPPRA 1,000 MG in D5W 100 ML IV SCH ×2 (09:48→21:34)
[2018-11-19 10:00] LABS: BUN/Creatinine Ratio 12; Blood Urea Nitrogen 13 mg/dL (9-20); Hemolysis Index 8
[2018-11-19] MEDS: SODIUM CHLORIDE FLUSH SYRINGE 10 ML IV SCH ×2 (12:47→21:37)
[2018-11-20] MEDS: K-PHOS NEUTRAL PO SCH ×5 (01:08→22:59)
[2018-11-20] MEDS: MAXIPIME/NS 2 GM/100 ML 2 GM/100 ML BAG IV SCH ×2 (05:42→18:11)
[2018-11-20] MEDS: D5NS 1,000 ML IV SCH ×2 (05:43→12:13)
[2018-11-20] MEDS: KEPPRA 1,000 MG in D5W 100 ML IV SCH (09:53)
[2018-11-20] MEDS: SODIUM CHLORIDE FLUSH SYRINGE 10 ML IV SCH ×2 (10:02→23:00)
--- NOTE | 2018-11-20 12:30 | Progress Note ---
Assessment and Plan Assessment and plan: Mr. Marsh is a 68 yo male -[place] male with hx of cerebral palsy, seizure, PVD, intellectual disability, cerebellar ataxia, GERD and dysphagia who was brought to the ED from SNF by EMS on account of recurrent seizures, AMS and poor appetite. Patient is unable to provide history and no family was available to provide history. Per ER chart, patient's DBP was low, 41 mm Hg at the SNF. 2 seizures were also witnessed at the facility within the last 24 hours. It was reported that the patient's sister explained that Mr. Marsh had not been himself lately. He is nonverbal, but he normally was able to get into his wheelchair and feed himself. Severe sepsis secondary to UTI -On IV antibiotic -Blood cx ngtd, urine cx was contaminated Hypotension due to sepsis -Blood pressure responsive to IV fluid, will monitor Hypoglycemia -On dextrose IV fluid and hypoglycemic protocol -was due to anorexia, diet started 11/19 Status epilepticus -Probably secondary to the hypoglycemia -Continue IV Keppra and seizure precautions Acute metabolic encephalopathy -Head CT scan negative Transaminitis -Probably secondary to the sepsis Chronic kidney disease stage IV with metabolic acidosis -Creatinine level at baseline DVT prophylaxis with SCD Disposition: Patient is DO NOT RESUSCITATE/DO NOT INTUBATE. Once stable d [facility]charge back to [facility] on [facility] care. History Interval history: Review of systems Constitutional: No fevers, no malaise, no joint pains CVS: No chest pain, no orthopnea, no dyspnea on exertion, no pedal edema GI: No abdominal pain, no diarrhea, no vomiting, no constipation Respiratory: no wheezing, no coughing Hospitalist Physical - Physical exam Narrative exam: General.: Appears well, no distress, nontoxic HEENT: Moist mucous membranes, extraocular muscles intact, no lymphadenopathy Neck: supple Cardiac: S1-S2 heard Lungs: clear to auscultation bilaterally Abdomen: soft , nontender, nondistended, bowel sounds positive Extremities: no edema clubbing or cyanosis Skin: no rash or lesions Neurologic: Bedbound, opens eyes, turn to voice, tries to communicate by making sounds, but nonverbal, demented Psych: calm, and cooperative - Constitutional Vitals: Temp Pulse Resp BP Pulse Ox 98.6 F 73 18 102/63 99 11/20/18 07:55 11/20/18 07:55 11/20/18 07:55 11/20/18 07:55 11/20/18 07:55 General appearance: Present: no acute distress Results - Labs CBC & Chem 7: 11/17/18 18:50 11/19/18 09:23 Labs: Laboratory Last Values WBC 14.3 K/mm3 (4.5-11.0) H 11/17/18 18:50 RBC 4.02 M/mm3 (3.65-5.03) 11/17/18 18:50 Hgb 12.9 gm/dl (11.8-15.2) 11/17/18 18:50 Hct 38.3 % (35.5-45.6) 11/17/18 18:50 MCV 95 fl (84-94) H 11/17/18 18:50 MCH 32 pg (28-32) 11/17/18 18:50 MCHC 34 % (32-34) 11/17/18 18:50 RDW 14.1 % (13.2-15.2) 11/17/18 18:50 Plt Count 236 K/mm3 (140-440) 11/17/18 18:50 Lymph % (Auto) 8.1 % (13.4-35.0) L 11/17/18 18:50 [place] % (Auto) 7.5 % (0.0-7.3) H 11/17/18 18:50 Eos % (Auto) 0.9 % (0.0-4.3) 11/17/18 18:50 Baso % (Auto) 0.4 % (0.0-1.8) 11/17/18 18:50 Lymph # 1.2 K/mm3 (1.2-5.4) 11/17/18 18:50 [place] # 1.1 K/mm3 (0.0-0.8) H 11/17/18 18:50 Eos # 0.1 K/mm3 (0.0-0.4) 11/17/18 18:50 Baso # 0.1 K/mm3 (0.0-0.1) 11/17/18 18:50 Seg Neutrophils % 83.1 % (40.0-70.0) H 11/17/18 18:50 Seg Neutrophils # 11.8 K/mm3 (1.8-7.7) H 11/17/18 18:50 PT 14.1 Sec. (12.2-14.9) 11/17/18 18:56 INR 1.03 (0.87-1.13) 11/17/18 18:56 VBG pH 7.395 (7.320-7.420) 11/17/18 18:56 Sodium 145 mmol/L (137-145) 11/19/18 09:23 Potassium 3.5 mmol/L (3.6-5.0) L 11/19/18 09:23 Chloride 114.4 mmol/L (98-107) H 11/19/18 09:23 Carbon Dioxide 21 mmol/L (22-30) L 11/19/18 09:23 13 mmol/L 11/19/18 09:23 BUN 13 mg/dL (9-20) 11/19/18 09:23 1.1 mg/dL (0.8-1.5) D 11/19/18 09:23 Estimated GFR > 60 ml/min 11/19/18 09:23 12 % 11/19/18 09:23 Glucose 113 mg/dL (75-100) H 11/19/18 09:23 POC Glucose 113 (70-105) H 11/20/18 11:42 Lactic Acid 1.40 mmol/L (0.7-2.0) 11/17/18 21:50 Calcium 8.0 mg/dL (8.4-10.2) L 11/19/18 09:23 Phosphorus 2.30 mg/dL (2.5-4.5) L 11/19/18 09:23 Magnesium 1.80 mg/dL (1.7-2.3) 11/19/18 09:23 0.60 mg/dL (0.1-1.2) 11/17/18 18:56 AST 80 units/L (5-40) H 11/17/18 18:56 ALT 38 units/L (7-56) 11/17/18 18:56 109 units/L (35-129) 11/17/18 18:56 7.0 g/dL (6.3-8.2) 11/17/18 18:56 3.4 g/dL (3.9-5) L 11/17/18 18:56 0.9 % 11/17/18 18:56 19 units/L (13-60) 11/17/18 20:18 [place] (Yellow) 11/17/18 21:39 Cloudy (Clear) 11/17/18 21:39 7.0 (5.0-7.0) 11/17/18 21:39 Ur Specific [place] 1.011 (1.003-1.030) 11/17/18 21:39 100 mg/dl mg/dL (Negative) 11/17/18 21:39 Neg mg/dL (Negative) 11/17/18 21:39 Tr mg/dL (Negative) 11/17/18 21:39 Mod (Negative) 11/17/18 21:39 Neg (Negative) 11/17/18 21:39 Neg (Negative) 11/17/18 21:39 2.0 mg/dL (<2.0) 11/17/18 21:39 Ur Leukocyte Esterase Mod (Negative) 11/17/18 21:39 > 182.0 /HPF (0.0-6.0) H 11/17/18 21:39 52.0 /HPF (0.0-6.0) 11/17/18 21:39 3+ /HPF 11/17/18 21:39 Amorphous Crystals 1+ 11/17/18 21:39 Phenytoin 15.7 ug/mL (10.0-20.0) 11/17/18 21:17 Active Medications - Current Medications Current Medications: Generic Name Dose Route Start Last Admin Trade Name Freq PRN Reason Stop Dose Admin Acetaminophen 650 mg 11/17/18 23:51 Tylenol PO Q4H PRN Pain MILD(1-3)/Fever >100.5/WINKLER Dextrose 50 gm 11/17/18 23:58 11/18/18 01:19 D50w (25gm) Vial IV 50 gm PRN PRN Administration Hypoglycemia Levetiracetam 1,000 mg/ 110 mls @ 400 mls/hr 11/18/18 10:00 11/20/18 09:53 Dextrose IV 11/20/18 14:00 400 mls/hr Q12HR KANU Administration Cefepime HCl 2 gm in 100 mls @ 200 mls/hr 11/18/18 18:00 11/20/18 05:42 Maxipime/Ns 2 Gm/100 Ml IV 200 mls/hr Q12H KANU Administration Protocol Levetiracetam 1,000 mg 11/20/18 22:00 Keppra PO Q12HR KANU Ondansetron HCl 4 mg 11/17/18 23:51 Zofran IV Q8H PRN Nausea And Vomiting Sodium Chloride 10 ml 11/18/18 10:00 11/20/18 10:02 Sodium Chloride Flush Syringe 10 Ml IV 10 ml BID KANU Administration Sodium Chloride 10 ml 11/17/18 23:51 11/18/18 02:03 Sodium Chloride Flush Syringe 10 Ml IV 10 ml PRN PRN Administration LINE FLUSH Sodium Phosphate 250 mg 11/19/18 22:00 11/20/18 09:50 K-Phos Neutral PO 11/21/18 21:59 250 mg QID KANU Administration Nutrition/Malnutrition Assess - Dietary Evaluation Nutrition/Malnutrition Findings: Nutrition Notes Start: 11/18/18 09:40 Freq: Status: Active Protocol: Document 11/18/18 09:41 RD (Rec: 11/18/18 09:55 RD [id number]) Co-Sign 11/18/18 09:41 LP Nutrition Notes 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 Emiliano score= 13. Pt family requests only comfort care and refuses tube feeding or intubation. Pt is nonverbal. Waiting for swallow evaluation from ASSIST[facility] IN NURSING. Nutrition Intervention Follow-Up By: 11/22/18 Additional Comments f/u: POC
[2018-11-20] MEDS: ZOFRAN IV PRN ×2 (15:01→22:59)
[2018-11-20] MEDS: SODIUM CHLORIDE FLUSH SYRINGE 10 ML IV PRN (15:01)
[2018-11-20] MEDS: KEPPRA PO SCH (22:59)
[2018-11-21] MEDS: MAXIPIME/NS 2 GM/100 ML 2 GM/100 ML BAG IV SCH ×2 (06:26→17:11)
[2018-11-21] MEDS: K-PHOS NEUTRAL PO SCH ×3 (09:36→19:00)
[2018-11-21] MEDS: KEPPRA PO SCH (09:36)
[2018-11-21] MEDS: SODIUM CHLORIDE FLUSH SYRINGE 10 ML IV SCH (09:37)
--- NOTE | 2018-11-21 11:09 | Discharge Summary ---
Providers - Providers Date of Admission: 11/20/18 08:12 Attending physician: ADELA NEWBY MD 11/17/18 Consult to Case Management [CONS] Routine Services Needed at Discharge: Other Notified:: ADRYAN Comment:: hospice care 11/20/18 12:47 Physical Therapy Evaluation and Treat [CONS] Routine Comment: Reason For Exam: Weakness Primary care physician: CLIFF VERNON Hospitalization Condition: Stable Hospital course: Mr. Marsh is a 68 yo male -Polish male with hx of cerebral palsy, seizure, PVD, intellectual disability, cerebellar ataxia, GERD and dysphagia who was brought to the ED from SNF by EMS on account of recurrent seizures, AMS and poor appetite. Patient is unable to provide history and no family was available to provide history. Per ER chart, patient's DBP was low, 41 mm Hg at the SNF. 2 seizures were also witnessed at the facility within the last 24 hours. It was reported that the patient's sister explained that Mr. Marsh had not been himself lately. He is nonverbal, but he normally was able to get into his wheelchair and feed himself. -he was treated with IV fluids, antibiotics and anti-seizure medications. He improved, he's being discharged on a course of antibiotics, and his seizure medications where optimized to medications with less side effects. The patient was hypoglycemic upon presentation which was due to poor po intake, as he clinically improved, his PO intake improved and his blood glucose was normalized. The patient was [facility] back to [facility] of [place]. Diagnosis Severe sepsis secondary to UTI Hypotension due to sepsis Hypoglycemia Status epilepticus Acute metabolic encephalopathy Transaminitis Chronic kidney disease stage IV with metabolic acidosis - Disposition: [id number] SNF [facility] Time spent for discharge: 33 mins Core Measure Documentation - Palliative Care Palliative Care/ Comfort Measures: Hospice Care - Core Measures Any of the following diagnoses?: none Exam - Physical Exam Narrative exam: General.: Appears well, no distress, nontoxic HEENT: Moist mucous membranes, extraocular muscles intact, no lymphadenopathy Neck: supple Cardiac: S1-S2 heard Lungs: clear to auscultation bilaterally Abdomen: soft , nontender, nondistended, bowel sounds positive Extremities: no edema clubbing or cyanosis Skin: no rash or lesions Neurologic: Bedbound, opens eyes, turn to voice, tries to communicate by making sounds, but nonverbal, demented Psych: calm, and cooperative - Constitutional Vitals: Temp Pulse Resp BP Pulse Ox 98.3 F 77 19 102/57 96 11/21/18 07:30 11/21/18 07:30 11/21/18 07:30 11/21/18 07:30 11/21/18 07:30 Plan Follow up with: CLIFF VERNON MD [Primary Care Provider] - 3-5 Days Prescriptions: cephALEXin [Keflex] 500 mg PO Q12HR #10 cap levETIRAcetam [Keppra TAB] 1,000 mg PO Q12HR 30 Days #120 tablet
[2018-11-21] MEDS ORDERED: THERAGRAN-M Tab PO SCH (16:00)
[2018-11-21] MEDS ORDERED: VITAMIN C PO SCH (16:00)
[2018-11-21] MEDS ORDERED: ZINC SULFATE PO SCH (16:00)
[2018-11-21] MEDS: SODIUM CHLORIDE FLUSH SYRINGE 10 ML IV PRN (17:13)
[2018-11-21 19:35] VITALS: BP 120/70
== END 2018-11-21 19:45 | DRG 871 ==
LOC: ED 18:33 → 2B-ACE 23:51 → OBSVTOIN 11-20 08:12
PROVIDERS: ADMIT Internal Medicine; ATTEND Internal Medicine
DX: A41.9 Sepsis, unspecified organism (principal); G93.41 Metabolic encephalopathy; N18.4 Chronic kidney disease, stage 4 (severe); N39.0 Urinary tract infection, site not specified; R65.20 Severe sepsis without septic shock; I95.9 Hypotension, unspecified; G40.901 Epilepsy, unspecified, not intractable, with status epilepticus; G80.9 Cerebral palsy, unspecified; I73.9 Peripheral vascular disease, unspecified; K21.9 Gastro-esophageal reflux disease without esophagitis; E16.2 Hypoglycemia, unspecified; R74.0 Nonspecific elevation of levels of transaminase and lactic acid dehydrogenase [LDH]; Z66 Do not resuscitate; Z90.49 Acquired absence of other specified parts of digestive tract; Z79.899 Other long term (current) drug therapy; Z87.442 Personal history of urinary calculi
CPT/HCPCS: 36415; 70450; 71045; 80048; 80053; 80185; 81001; 82140; 82805; 82962; 83690; 83735; 84100; 85025; 85610; 87040; 87086; 87116; 93005; 93010; 96361; 96365; 96375; 96376; G0378; A6250; J0692; J1953; J2405; J7030; J7040; J7042

== ENCOUNTER 2019-02-24 09:26 | Inpatient (IN) | payer MEDICARE ==
[2019-02-24] MEDS ORDERED: NACL 0.9% 1000 ML 1,000 ML IV ONE ×2 (09:40→09:41)
[2019-02-24] MEDS ORDERED: NACL 0.9% 1000 ML IV ONE (09:48)
[2019-02-24] MEDS ORDERED: VANCOMYCIN 1,500 MG in NACL 0.9% 500 ML 500 ML IV ONE (09:48)
[2019-02-24] MEDS ORDERED: VANCOMYCIN PHARMACY TO DOSE IV SCH (10:00)
[2019-02-24] MEDS ORDERED: MAXIPIME/NS 2 GM/100 ML 2 GM/100 ML BAG IV SCH (10:00)
--- NOTE | 2019-02-24 10:24 | Emergency Department Report ---
ED Altered Mental Status HPI - General Chief Complaint: Altered Mental Status Stated Complaint: AMS Time Seen by Provider: 02/24/19 09:43 Source: patient, family, EMS, RN notes reviewed, old records reviewed Mode of arrival: Stretcher Limitations: Physical Limitation - History of Present Illness Initial Comments: Mr. Hernandez is a 68 yo male with hx of cerebral palsy, seizure, UTI, sepsis, intellectual disability, PVD, cerebellar ataxia, GERD, dysphagia who presents with decreased responsiveness and fever. Mr. Hernandez could not swallow according to sister's report. Patient is nonverbal at baseline. Resident at [facility]. Unable to obtain hx from patient. I did obtain hx from sister and EMS. DNR status I have reviewed recent discharge summary and SNF documentation. I treated Mr. Hernandez earlier this year. He was treated for severe sepsis, UTI, encephalopathy, status epilepticus. MD Complaint: altered mental status, decreased responsiveness -: Gradual, days(s) (1) Severity: severe Consistency of Symptoms: getting worse Context: history of similar presen - Related Data Home Medications Medication Instructions Recorded Confirmed Last Taken Pantoprazole [Protonix TAB] 40 mg PO QDAY 05/02/13 11/18/18 Unknown Previous Rx's Medication Instructions Recorded Last Taken Type Divalproex Dr [Depakote Dr] 125 mg PO BID #60 tablet 05/09/13 Unknown Rx Docusate Sodium [Colace CAP] 100 mg PO BID #60 capsule 05/09/13 Unknown Rx Ondansetron [Zofran Odt] 4 mg PO Q6HR PRN #12 tab.rapdis 02/02/18 Unknown Rx cephALEXin [Keflex] 500 mg PO Q12HR #10 cap 11/21/18 Unknown Rx levETIRAcetam [Keppra TAB] 1,000 mg PO Q12HR 30 Days #120 11/21/18 Unknown Rx tablet Allergies Allergy/AdvReac Type Severity Reaction Status Date / Time No Known Allergies Allergy Verified 05/02/13 21:38 ED Review of Systems ROS: Stated complaint: AMS Other details as noted in HPI Comment: Unobtainable due to pts medical conditions (nonverbal) ED Past Medical Hx - Past Medical History Previous Medical History?: Yes Hx Congestive Heart Failure: No Hx Diabetes: No Hx GERD: Yes Hx Liver Disease: Yes (biliary stones) Hx Seizures: Yes (status epilepticus) Hx Kidney Stones: Yes Hx Asthma: No Hx COPD: No Hx Tuberculosis: No Additional medical history: gallstones, cerebral palsy. - Surgical History Past Surgical History?: Yes Hx Cholecystectomy: Yes Hx Appendectomy: Yes - Social History Smoking Status: Never Smoker Substance Use Type: None - Medications Home Medications: Home Medications Medication Instructions Recorded Confirmed Last Taken Type Pantoprazole [Protonix TAB] 40 mg PO QDAY 05/02/13 11/18/[address] [Depakote Dr] 125 mg PO BID #60 tablet 05/09/13 11/18/18 Unknown Rx Docusate Sodium [Colace CAP] 100 mg PO BID #60 capsule 05/09/13 11/18/18 Unknown Rx Ondansetron [Zofran Odt] 4 mg PO Q6HR PRN #12 tab.rapdis 02/02/18 11/18/18 Unknown Rx cephALEXin [Keflex] 500 mg PO Q12HR #10 cap 11/21/18 Unknown Rx levETIRAcetam [Keppra TAB] 1,000 mg PO Q12HR 30 Days #120 11/21/18 Unknown Rx tablet ED Physical Exam - General Limitations: Physical Limitation General appearance: lethargic, other (will open eye to voice) - Head Head exam: Present: atraumatic, normocephalic - Eye Eye exam: Absent: scleral icterus, conjunctival injection - ENT ENT exam: Present: mucous membranes dry - Neck Neck exam: Present: normal inspection, full ROM. Absent: tenderness, meningismus - Respiratory Respiratory exam: Present: normal lung sounds bilaterally. Absent: respiratory distress, wheezes, rales, rhonchi - Cardiovascular Cardiovascular Exam: Present: regular rate, normal rhythm, normal heart sounds. Absent: systolic murmur, diastolic murmur, rubs, gallop - GI/Abdominal GI/Abdominal exam: Present: soft, normal bowel sounds. Absent: distended, tenderness, guarding, rebound - Rectal Rectal exam: Present: deferred - Extremities Exam Extremities exam: Present: other (contracted extremities) - Neurological Exam Neurological exam: Present: altered - Psychiatric Psychiatric exam: Present: flat affect - Skin Skin exam: Present: warm, dry, intact, normal color. Absent: rash, other (no skin breakdown) ED Course Vital Signs 02/24/19 02/24/19 02/24/19 09:31 09:36 09:40 Temperature 98.0 F 98.1 F Pulse Rate 82 77 81 Respiratory 12 14 11 L Rate Blood Pressure 97/56 Blood Pressure 107/47 [Left] O2 Sat by Pulse 96 98 Oximetry 02/24/19 02/24/19 02/24/19 09:45 10:00 10:16 Temperature Pulse Rate 77 77 Respiratory 11 L 14 10 L Rate Blood Pressure 107/47 106/44 106/44 Blood Pressure [Left] O2 Sat by Pulse 99 97 Oximetry 02/24/19 02/24/19 02/24/19 10:30 10:45 11:07 Temperature Pulse Rate 75 80 83 Respiratory 14 8 L 29 H Rate Blood Pressure 89/51 97/59 97/59 Blood Pressure [Left] O2 Sat by Pulse 99 99 100 Oximetry - Lab Data Result diagrams: 02/24/19 10:29 02/24/19 10:29 Lab Results 02/24/19 02/24/19 02/24/19 Range/Units 10:29 10:29 10:29 WBC 13.2 H (4.5-11.0) K/mm3 RBC 3.70 (3.65-5.03) M/mm3 Hgb 11.6 L (11.8-15.2) gm/dl Hct 33.9 L (35.5-45.6) % MCV 92 (84-94) fl MCH 31 (28-32) pg MCHC 34 (32-34) % RDW 15.2 (13.2-15.2) % Plt Count 503 H (140-440) K/mm3 Lymph % (Auto) 9.0 L (13.4-35.0) % [place] % (Auto) 14.4 H (0.0-7.3) % Eos % (Auto) 0.1 (0.0-4.3) % Baso % (Auto) 0.6 (0.0-1.8) % Lymph # 1.2 (1.2-5.4) K/mm3 [place] # 1.9 H (0.0-0.8) K/mm3 Eos # 0.0 (0.0-0.4) K/mm3 Baso # 0.1 (0.0-0.1) K/mm3 Seg Neutrophils % 75.9 H (40.0-70.0) % Seg Neutrophils # 10.0 H (1.8-7.7) K/mm3 PT 15.6 H (12.2-14.9) Sec. INR 1.27 H (0.87-1.13) Sodium 126 L (137-145) mmol/L Potassium 4.8 (3.6-5.0) mmol/L Chloride 88.8 L (98-107) mmol/L Carbon Dioxide 23 (22-30) mmol/L Anion Gap 19 mmol/L BUN 34 H (9-20) mg/dL Creatinine 3.5 H (0.8-1.5) mg/dL Estimated GFR 21 ml/min BUN/Creatinine Ratio 10 % Glucose 81 (75-100) mg/dL Lactic Acid (0.7-2.0) mmol/L Calcium 8.7 (8.4-10.2) mg/dL Total Bilirubin 0.40 (0.1-1.2) mg/dL AST 22 (5-40) units/L ALT 14 (7-56) units/L Alkaline Phosphatase 48 (35-129) units/L Ammonia (25-60) umol/L Troponin T 0.083 H (0.00-0.029) ng/mL Total Protein 7.9 (6.3-8.2) g/dL Albumin 2.5 L (3.9-5) g/dL Albumin/Globulin Ratio 0.5 % Triglycerides 145 (2-149) mg/dL Cholesterol 139 (50-199) mg/dL LDL Cholesterol Direct 87 (50-130) mg/dL HDL Cholesterol 20 L (40-59) mg/dL Cholesterol/HDL Ratio 6.95 % Salicylates (2.8-20.0) mg/dL Acetaminophen (10.0-30.0) ug/mL Valproic Acid (50-100) ug/mL Plasma/Serum Alcohol (0-0.07) % 02/24/19 02/24/19 02/24/19 Range/Units 10:29 10:29 10:29 WBC (4.5-11.0) K/mm3 RBC (3.65-5.03) M/mm3 Hgb (11.8-15.2) gm/dl Hct (35.5-45.6) % MCV (84-94) fl MCH (28-32) pg MCHC (32-34) % RDW (13.2-15.2) % Plt Count (140-440) K/mm3 Lymph % (Auto) (13.4-35.0) % [place] % (Auto) (0.0-7.3) % Eos % (Auto) (0.0-4.3) % Baso % (Auto) (0.0-1.8) % Lymph # (1.2-5.4) K/mm3 [place] # (0.0-0.8) K/mm3 Eos # (0.0-0.4) K/mm3 Baso # (0.0-0.1) K/mm3 Seg Neutrophils % (40.0-70.0) % Seg Neutrophils # (1.8-7.7) K/mm3 PT (12.2-14.9) Sec. INR (0.87-1.13) Sodium (137-145) mmol/L Potassium (3.6-5.0) mmol/L Chloride (98-107) mmol/L Carbon Dioxide (22-30) mmol/L Anion Gap mmol/L BUN (9-20) mg/dL Creatinine (0.8-1.5) mg/dL Estimated GFR ml/min BUN/Creatinine Ratio % Glucose (75-100) mg/dL Lactic Acid 1.20 (0.7-2.0) mmol/L Calcium (8.4-10.2) mg/dL Total Bilirubin (0.1-1.2) mg/dL AST (5-40) units/L ALT (7-56) units/L Alkaline Phosphatase (35-129) units/L Ammonia 44.0 (25-60) umol/L Troponin T (0.00-0.029) ng/mL Total Protein (6.3-8.2) g/dL Albumin (3.9-5) g/dL Albumin/Globulin Ratio % Triglycerides (2-149) mg/dL Cholesterol (50-199) mg/dL LDL Cholesterol Direct (50-130) mg/dL HDL Cholesterol (40-59) mg/dL Cholesterol/HDL Ratio % Salicylates < 0.3 L (2.8-20.0) mg/dL Acetaminophen (10.0-30.0) ug/mL Valproic Acid 72.9 (50-100) ug/mL Plasma/Serum Alcohol (0-0.07) % 02/24/19 02/24/19 Range/Units 10:29 10:29 WBC (4.5-11.0) K/mm3 RBC (3.65-5.03) M/mm3 Hgb (11.8-15.2) gm/dl Hct (35.5-45.6) % MCV (84-94) fl MCH (28-32) pg MCHC (32-34) % RDW (13.2-15.2) % Plt Count (140-440) K/mm3 Lymph % (Auto) (13.4-35.0) % [place] % (Auto) (0.0-7.3) % Eos % (Auto) (0.0-4.3) % Baso % (Auto) (0.0-1.8) % Lymph # (1.2-5.4) K/mm3 [place] # (0.0-0.8) K/mm3 Eos # (0.0-0.4) K/mm3 Baso # (0.0-0.1) K/mm3 Seg Neutrophils % (40.0-70.0) % Seg Neutrophils # (1.8-7.7) K/mm3 PT (12.2-14.9) Sec. INR (0.87-1.13) Sodium (137-145) mmol/L Potassium (3.6-5.0) mmol/L Chloride (98-107) mmol/L Carbon Dioxide (22-30) mmol/L Anion Gap mmol/L BUN (9-20) mg/dL Creatinine (0.8-1.5) mg/dL Estimated GFR ml/min BUN/Creatinine Ratio % Glucose (75-100) mg/dL Lactic Acid (0.7-2.0) mmol/L Calcium (8.4-10.2) mg/dL Total Bilirubin (0.1-1.2) mg/dL AST (5-40) units/L ALT (7-56) units/L Alkaline Phosphatase (35-129) units/L Ammonia (25-60) umol/L Troponin T (0.00-0.029) ng/mL Total Protein (6.3-8.2) g/dL Albumin (3.9-5) g/dL Albumin/Globulin Ratio % Triglycerides (2-149) mg/dL Cholesterol (50-199) mg/dL LDL Cholesterol Direct (50-130) mg/dL HDL Cholesterol (40-59) mg/dL Cholesterol/HDL Ratio % Salicylates (2.8-20.0) mg/dL Acetaminophen 5.1 L (10.0-30.0) ug/mL Valproic Acid (50-100) ug/mL Plasma/Serum Alcohol < 0.01 (0-0.07) % 02/24/19 10:51 EKG obtained 1046 Normal sinus rhythm rate 70 beats a minute normal axis normal intervals no ST elevation nonspecific T wave pattern - Radiology Data Radiology results: report reviewed portable chest x-ray: No acute process - Medical Decision Making Mr. hernandez presents with altered mental status due to acute metabolic encephalopathy. Labs notable for acute kidney injury, hyponatremia hypochloremia, leukocytosis. CT head without acute process. CT chest without acute process however multiple compression fractures noted. I suspect compression fractures are chronic. Presumed sepsis, awaiting urinalysis results. Broad spectrum antibiotics initia nellie in the ED. Sepsis protocol also initiated appropriate IV fluid resuscitation. It has also service telemetry. Critical care attestation.: If time is entered above; I have spent that time in minutes in the direct care of this critically ill patient, excluding procedure time. ED Disposition Clinical Impression: Acute metabolic encephalopathy, Sepsis, REJI (acute kidney injury), Acute hyponatremia Disposition: OP ADMIT IP TO THIS HOSP Is pt being admited?: Yes Does the pt Need Aspirin: No Condition: Stable Referrals: CLIFF VERNON MD [Primary Care Provider] - 3-5 Days
[2019-02-24 10:56] LABS: Basophils # (Auto) 0.1 K/mm3 (0.0-0.1); Basophils % (Auto) 0.6 % (0.0-1.8); Eosinophils % (Auto) 0.1 % (0.0-4.3); Hematocrit 33.9 % (35.5-45.6); Hemoglobin 11.6 gm/dl (11.8-15.2); Lymphocytes # (Auto) 1.2 K/mm3 (1.2-5.4); Mean Corpuscular HGB Conc 34 % (32-34); Mean Corpuscular Volume 92 fl (84-94); Monocytes # (Auto) 1.9 K/mm3 (0.0-0.8); Monocytes % (Auto) 14.4 % (0.0-7.3); Platelet Count 503 K/mm3 (140-440); Red Cell Distribution Width 15.2 % (13.2-15.2)
[2019-02-24 11:05] LABS: INR 1.27 (0.87-1.13)
--- NOTE | 2019-02-24 11:12 | XRay Report ---
CHEST 1 VIEW INDICATION: Altered Mental Status COMPARISON: 11/17/2018 FINDINGS: Support devices: None Heart: Stable. Lungs/Pleura: Suboptimal inspiration but no convincing evidence of acute pulmonary disease or pleural fluid. IMPRESSION: 1. No significant change. Signer Name: Tyson Estrada MD Signed: 02/24/2019 11:08 AM Workstation Name: [id number]
[2019-02-24 11:16] LABS: Albumin 2.5 g/dL (3.9-5); Calcium 8.7 mg/dL (8.4-10.2)
--- NOTE | 2019-02-24 11:50 | Cat Scan Report ---
CT HEAD WITHOUT CONTRAST INDICATION / CLINICAL INFORMATION: Altered Mental Status. TECHNIQUE: All CT scans at this location are performed using CT dose reduction for ALARA by means of automated e xposure control. COMPARISON: Head CT 01/21/2011 LIMITATIONS: Patient's angio technologist was apparently unable to position the patient in the usual man ner. These scans were obtained with significant obliquity which is a limiting factor on this study. FINDINGS: HEMORRHAGE: No evidence of intracranial hemorrhage or extra-axial fluid collection. EXTRA-AXIAL SPACES: Cortical sulci and sylvian fissures are mildly enlarged reflecting a degree of pa renchymal volume loss which is within normal limits for the patient's age. Basilar cisterns have an u nremarkable appearance. VENTRICULAR SYSTEM: The third and lateral ventricles are mildly enlarged reflecting resonance of age related parenchymal volume loss. CEREBRAL PARENCHYMA: Periventricular and deep white matter lucency is observed. This is probably seco ndary to microvascular ischemic change. There is no indication of recent infarction. No areas of ence phalomalacia are identified. MIDLINE SHIFT OR HERNIATION: There is no mass effect. CEREBELLUM / BRAINSTEM: Brainstem and cerebellum have an unremarkable appearance. INTRACRANIAL VESSELS:Calcified atherosclerotic plaque is present along the course of the cavernous se gments of both internal carotid arteries. Similar findings are seen at the distal vertebral arteries. ORBITS: visualized portions of the orbits have an unremarkable appearance. SOFT TISSUES of HEAD: No significant abnormality. CALVARIUM: Evaluation of bone windows reveals no abnormalities. PARANASAL SINUSES / MASTOID AIR CELLS: The appearance of the ethmoid sinuses have improved since prev ious study. There is no evidence of mucosal disease in the anterior aspect of the right sphenoid sinu s. Mastoid air cells are normally pneumatized. IMPRESSION: 1. Mild age-related involutional changes. 2. Limited study secondary to patient positioning. 3. No acute intracranial abnormality. No interval change. Signer Name: Ector Chaparro MD Signed: 02/24/2019 11:46 AM Workstation Name: [id number]
--- NOTE | 2019-02-24 11:51 | Cat Scan Report ---
CT CHEST WITHOUT CONTRAST INDICATION / CLINICAL INFORMATION: fever AMS. TECHNIQUE: Axial CT images were obtained through the chest without contrast. All CT scans at this location are p erformed using CT dose reduction for ALARA by means of automated exposure control. COMPARISON: None available. FINDINGS: HEART: No significant abnormality. THORACIC AORTA: No significant abnormality. MEDIASTINUM and KRISTA: No significant abnormality. LUNGS: Marked eventration right hemidiaphragm. No acute air space or interstitial disease. PLEURA: No significant pleural effusion. No pneumothorax. ADDITIONAL FINDINGS: None. UPPER ABDOMEN: No significant abnormality. Left renal calculus present SKELETAL SYSTEM: Multiple wedge compression fractures mid lower thoracic spine age difficult to deter mine IMPRESSION: 1. Marked eventration right hemidiaphragm 2. Multiple compression fractures thoracic spine 3. No acute cardiopulmonary. Signer Name: Mick Giraldo MD Signed: 02/24/2019 11:46 AM Workstation Name: [id number]
[2019-02-24 11:56] LABS: Chol/HDL Ratio 6.95 %
[2019-02-24] MEDS ORDERED: MAXIPIME/NS 2 GM/100 ML 2 GM/100 ML BAG IV ONE (12:00)
[2019-02-24 14:51] LABS: Bacteria,Urine 1+ /HPF (Negative); Bilirubin,Urine NEG (Negative); Blood,Urine MOD (Negative); Color,Urine Amber (Yellow); Mucus,Urine FEW /HPF
[2019-02-24 14:55] LABS: Amphetamine Screen,Urine PRESUMPTIVE NEGATIVE; Benzodiazepines Screen,Urine PRESUMPTIVE NEGATIVE; Cannabinoid Screen,Urine PRESUMPTIVE NEGATIVE; Cocaine Screen,Urine PRESUMPTIVE NEGATIVE; Methadone Screen,Urine PRESUMPTIVE NEGATIVE; Opiate Screen,Urine PRESUMPTIVE NEGATIVE
--- NOTE | 2019-02-24 21:23 | History and Physical Report ---
History of Present Illness Date of examination: 02/24/19 Date of admission: 02/24/19 14:18 Chief complaint: Altered sensorium for 2 days History of present illness: 68 yo male with hx of cerebral palsy, seizure, nrecurrent UTIs , sepsis, intellectual disability, PVD, cerebellar ataxia, GERD, dysphagia presents with decreased responsiveness and fever. Could not swallow according to sister's report. Patient is nonverbal at baseline. Resident at [facility]. Unable to obtain hx from patient. History obtained from sister and EMS. DNR status Reviewed recent discharge summary and SNF documentation. He was treated for severe sepsis, UTI, encephalopathy, status epilepticus. Past Medical History Previous Medical History?: Yes GERD: Yes Liver Disease: Yes (biliary stones) Seizures: Yes (status epilepticus) Kidney Stones: Yes Additional medical history: gallstones, cerebral palsy. Surgical History Past Surgical History?: Yes Cholecystectomy: Yes Appendectomy: Yes Social History Smoking Status: Never Smoker Substance Use Type: None Family History Htn - Medications Home Medications: Home Medications Medication Instructions Recorded Confirmed Last Taken Type Pantoprazole [Protonix TAB] 40 mg PO QDAY 05/02/13 11/18/18 Unknown History Divalproex [Malena Nguyen] 125 mg PO BID #60 tablet 05/09/13 11/18/18 Unknown Rx Docusate Sodium [Colace CAP] 100 mg PO BID #60 capsule 05/09/13 11/18/18 Unknown Rx Ondansetron [Zofran Odt] 4 mg PO Q6HR PRN #12 tab.rapdis 02/02/18 11/18/18 Unknown Rx cephALEXin [Keflex] 500 mg PO Q12HR #10 cap 11/21/18 Unknown Rx levETIRAcetam [Keppra TAB] 1,000 mg PO Q12HR 30 Days #120 11/21/18 Unknown Rx tablet Review of Systems ROS: Stated complaint: AMS Other details as noted in HPI Comment: Unobtainable due to pts medical conditions (nonverbal) Medications and Allergies Allergies Allergy/AdvReac Type Severity Reaction Status Date / Time No Known Allergies Allergy Verified 05/02/13 21:38 Home Medications Medication Instructions Recorded Confirmed Last Taken Type RX: Pantoprazole [Protonix TAB] 40 mg PO QDAY 05/02/13 11/18/18 Unknown History RX: Divalproex Dr [Depakote Dr] 125 mg PO BID #60 tablet 05/09/13 11/18/18 Unknown Rx RX: Docusate Sodium [Colace CAP] 100 mg PO BID #60 capsule 05/09/13 11/18/18 Unknown Rx RX: Ondansetron [Zofran Odt] 4 mg PO Q6HR PRN #12 tab.rapdis 02/02/18 11/18/18 Unknown Rx RX: levETIRAcetam [Keppra TAB] 1,000 mg PO Q12HR 30 Days #120 11/21/18 Unknown Rx tablet cephALEXin [Keflex] 500 mg PO Q12HR #10 cap 11/21/18 Unknown Rx Active Meds: Active Medications Cefepime HCl (Maxipime/Ns 1 Gm/100 Ml) 1 gm in 100 mls @ 200 mls/hr IV Q12HR KANU Exam - Constitutional Vitals: Temp Pulse Resp BP Pulse Ox 98.7 F 89 18 87/57 97 02/24/19 20:14 02/24/19 20:14 02/24/19 20:14 02/24/19 20:14 02/24/19 20:14 General appearance: Present: mild distress, well-nourished - EENT Eyes: Present: PERRL ENT: hearing intact, clear oral mucosa - Neck Neck: Present: supple, normal ROM - Respiratory Respiratory effort: normal Respiratory: bilateral: CTA - Cardiovascular Heart rate: 72 Rhythm: regular Heart Sounds: Present: S1 & S2. Absent: rub, click - Extremities Extremities: no ischemia, pulses intact, pulses symmetrical, No edema Peripheral Pulses: within normal limits - Abdominal General gastrointestinal: Present: soft, non-tender, non-distended, normal bowel sounds Male genitourinary: Present: normal - Rectal Rectal Exam: deferred - Integumentary Integumentary: Present: clear, warm, dry - Musculoskeletal Musculoskeletal: generalized weakness - Psychiatric Psychiatric: appropriate mood/affect, depressed, other (Lethargic) - Neurologic Neurologic: other (Nuclear Medical Tech exam could not be done b/c of patients altered sensorium) Results - Labs CBC & Chem 7: 02/25/19 04:21 02/25/19 04:21 Labs: Laboratory Last Values WBC 13.2 K/mm3 (4.5-11.0) H 02/24/19 10:29 RBC 3.70 M/mm3 (3.65-5.03) 02/24/19 10:29 Hgb 11.6 gm/dl (11.8-15.2) L 02/24/19 10:29 Hct 33.9 % (35.5-45.6) L 02/24/19 10:29 MCV 92 fl (84-94) 02/24/19 10:29 MCH 31 pg (28-32) 02/24/19 10: MCHC 34 % (32-34) 02/24/19 10:29 RDW 15.2 % (13.2-15.2) 02/24/19 10:29 Plt Count 503 K/mm3 (140-440) H 02/24/19 10:29 Lymph % (Auto) 9.0 % (13.4-35.0) L 02/24/19 10:29 [place] % (Auto) 14.4 % (0.0-7.3) H 02/24/19 10:29 Eos % (Auto) 0.1 % (0.0-4.3) 02/24/19 10:29 Baso % (Auto) 0.6 % (0.0-1.8) 02/24/19 10:29 Lymph # 1.2 K/mm3 (1.2-5.4) 02/24/19 10:29 [place] # 1.9 K/mm3 (0.0-0.8) H 02/24/19 10:29 Eos # 0.0 K/mm3 (0.0-0.4) 02/24/19 10:29 Baso # 0.1 K/mm3 (0.0-0.1) 02/24/19 10:29 Seg Neutrophils % 75.9 % (40.0-70.0) H 02/24/19 10:29 Seg Neutrophils # 10.0 K/mm3 (1.8-7.7) H 02/24/19 10:29 PT 15.6 Sec. (12.2-14.9) H 02/24/19 10:29 INR 1.27 (0.87-1.13) H 02/24/19 10:29 Sodium 126 mmol/L (137-145) L 02/24/19 10:29 Potassium 4.8 mmol/L (3.6-5.0) 02/24/19 10:29 Chloride 88.8 mmol/L (98-107) L 02/24/19 10:29 Carbon Dioxide 23 mmol/L (22-30) 02/24/19 10:29 19 mmol/L 02/24/19 10:29 BUN 34 mg/dL (9-20) H 02/24/19 10:29 3.5 mg/dL (0.8-1.5) H 02/24/19 10:29 Estimated GFR 21 ml/min 02/24/19 10:29 10 % 02/24/19 10:29 Glucose 81 mg/dL (75-100) 02/24/19 10:29 Lactic Acid 1.20 mmol/L (0.7-2.0) 02/24/19 10:29 Calcium 8.7 mg/dL (8.4-10.2) 02/24/19 10:29 0.40 mg/dL (0.1-1.2) 02/24/19 10:29 AST 22 units/L (5-40) 02/24/19 10:29 ALT 14 units/L (7-56) 02/24/19 10:29 48 units/L (35-129) 02/24/19 10:29 44.0 umol/L (25-60) 02/24/19 10:29 0.083 ng/mL (0.00-0.029) H 02/24/19 10:29 7.9 g/dL (6.3-8.2) 02/24/19 10:29 2.5 g/dL (3.9-5) L 02/24/19 10:29 0.5 % 02/24/19 10:29 Triglycerides 145 mg/dL (2-149) 02/24/19 10:29 Cholesterol 139 mg/dL (50-199) 02/24/19 10:29 87 mg/dL (50-130) 02/24/19 10:29 20 mg/dL (40-59) L 02/24/19 10:29 6.95 % 02/24/19 10:29 [place] (Yellow) 02/24/19 14:15 Cloudy (Clear) 02/24/19 14:15 6.0 (5.0-7.0) 02/24/19 14:15 Ur Specific [place] 1.020 (1.003-1.030) 02/24/19 14:15 100 mg/dl mg/dL (Negative) 02/24/19 14:15 Neg mg/dL (Negative) 02/24/19 14:15 Tr mg/dL (Negative) 02/24/19 14:15 Mod (Negative) 02/24/19 14:15 Neg (Negative) 02/24/19 14:15 Neg (Negative) 02/24/19 14:15 4.0 mg/dL (<2.0) 02/24/19 14:15 Ur Leukocyte Esterase Sm (Negative) 02/24/19 14:15 23.0 /HPF (0.0-6.0) H 02/24/19 14:15 20.0 /HPF (0.0-6.0) 02/24/19 14:15 U Epithel Cells (Auto) < 1.0 /HPF (0-13.0) 02/24/19 14:15 1+ /HPF (Negative) 02/24/19 14:15 Few /HPF 02/24/19 14:15 Salicylates < 0.3 mg/dL (2.8-20.0) L 02/24/19 10:29 Presumptive negative 02/24/19 14:15 Presumptive negative 02/24/19 14:15 Acetaminophen 5.1 ug/mL (10.0-30.0) L 02/24/19 10:29 Ur Barbiturates Screen Presumptive negative 02/24/19 14:15 Valproic Acid 72.9 ug/mL (50-100) 02/24/19 10:29 Ur Phencyclidine Scrn Presumptive negative 02/24/19 14:15 Ur Amphetamines Screen Presumptive negative 02/24/19 14:15 U Benzodiazepines Scrn Presumptive negative 02/24/19 14:15 Presumptive negative 02/24/19 14:15 U Marijuana (THC) Screen Presumptive negative 02/24/19 14:15 Disclamer 02/24/19 14:15 Plasma/Serum Alcohol < 0.01 % (0-0.07) 02/24/19 10:29 Short CBC 02/24/19 02/25/19 Range/Units 10:29 04:21 WBC 13.2 H 11.1 H (4.5-11.0) K/mm3 Hgb 11.6 L 10.5 L (11.8-15.2) gm/dl Hct 33.9 L 31.1 L (35.5-45.6) % Plt Count 503 H 413 (140-440) K/mm3 BMP 02/24/19 02/25/19 10:29 04:21 Sodium 126 L 131 L Potassium 4.8 5.0 Chloride 88.8 L 98.8 Carbon Dioxide 23 18 L BUN 34 H 29 H Creatinine 3.5 H 2.4 H Glucose 81 56 L Calcium 8.7 8.2 L Cardiac Enzymes 02/24/19 Range/Units 10:29 Troponin T 0.083 H (0.00-0.029) ng/mL Liver Function 02/24/19 02/25/19 Range/Units 10:29 04:21 Total Bilirubin 0.40 0.30 (0.1-1.2) mg/dL AST 22 17 (5-40) units/L ALT 14 8 (7-56) units/L Alkaline Phosphatase 48 43 (35-129) units/L Albumin 2.5 L 2.0 L (3.9-5) g/dL Urine 02/24/19 Range/Units 14:15 Urine Color [place] (Yellow) Urine pH 6.0 (5.0-7.0) Ur Specific [place] 1.020 (1.003-1.030) Urine Protein 100 mg/dl (Negative) mg/dL Urine Glucose (UA) Neg (Negative) mg/dL - Imaging and Cardiology EKG: report reviewed (NSR 72/min) Chest x-ray: report reviewed (NAF) CT Scan - head: report reviewed (NAF) Imaging and Cardiology: CT Chest IMPRESSION: 1. Marked eventration right hemidiaphragm 2. Multiple compression fractures thoracic spine 3. No acute cardiopulmonary. Assessment and Plan Advance Directives: Yes (DNR) VTE prophylaxis?: Chemical Plan of care discussed with patient/family: Yes - Patient Problems (1) Sepsis Current Visit: Yes Status: Acute Qualifiers: Sepsis acute organ dysfunction status: unspecified Plan to address problem: Sec to UTI IV Rocephin for now (2) Acute encephalopathy Current Visit: No Status: Acute Plan to address problem: Sec to sepsis IV fluids and IV Rocephin (3) Cerebral palsy Current Visit: No Status: Chronic Qualifiers: Cerebral palsy type: unspecified type Qualified Code(s): G80.9 - Cerebral palsy, unspecified Plan to address problem: Supportive care (4) REJI (acute kidney injury) Current Visit: Yes Status: Acute Plan to address problem: IV fluids for now ATN (5) UTI (urinary tract infection) Current Visit: Yes Status: Acute Qualifiers: Urinary tract infection type: acute cystitis Plan to address problem: IV Rocephin for now pending cultures (6) Seizure disorder Current Visit: Yes Status: Chronic Plan to address problem: Cont Keppra (7) Hyponatremia Current Visit: Yes Status: Acute Plan to address problem: IV NS for now Check osmolality (8) Thoracic compression fracture Current Visit: Yes Status: Chronic Qualifiers: Thoracic vertebra fracture level: unspecified thoracic vertebra Plan to address problem: Ortho consult Probable conservative treatment (9) Elevated troponin Current Visit: Yes Status: Chronic Plan to address problem: Sec to REJI (10) DVT prophylaxis Current Visit: Yes Status: Acute Plan to address problem: On Heparin andd GI prophylaxis
[2019-02-24] MEDS ORDERED: SODIUM CHLORIDE FLUSH SYRINGE 10 ML IV PRN (21:24)
[2019-02-24] MEDS ORDERED: ZOFRAN IV PRN (21:24)
[2019-02-24] MEDS ORDERED: MAXIPIME/NS 1 GM/100 ML 1 GM/100 ML BAG IV SCH (22:00)
[2019-02-24] MEDS ORDERED: ROCEPHIN/NS 2 GM/100 ML 2 GM/100 ML BAG IV SCH (22:00)
[2019-02-24] MEDS ORDERED: PEPCID IV SCH (22:00)
[2019-02-24] MEDS: PEPCID IV SCH (22:12)
[2019-02-24] MEDS: SODIUM CHLORIDE FLUSH SYRINGE 10 ML IV SCH (22:12)
[2019-02-24] MEDS: NACL 0.9% 1000 ML 1,000 ML IV SCH (22:20)
[2019-02-25 04:43] LABS: Hematocrit 31.1 % (35.5-45.6); Hemoglobin 10.5 gm/dl (11.8-15.2); Mean Corpuscular HGB Conc 34 % (32-34); Mean Corpuscular Volume 93 fl (84-94); Platelet Count 413 K/mm3 (140-440); Red Blood Count 3.34 M/mm3 (3.65-5.03); Red Cell Distribution Width 15.6 % (13.2-15.2)
[2019-02-25 04:59] LABS: Calcium 8.2 mg/dL (8.4-10.2)
[2019-02-25 05:42] LABS: Band Neutrophils # (Manual) 0.7 K/mm3; Basophils % (Manual) 0 % (0.0-1.8); Eosinophils % (Manual) 0 % (0.0-4.3); Total Cells Counted 100
[2019-02-25 05:44] LABS: Anisocytosis Few; Macrocytosis Few; Platelet Clumps Rare; Platelet Estimate Consistent w Auto
[2019-02-25] MEDS ORDERED: ZOFRAN ODT PO PRN (06:23)
[2019-02-25] MEDS: NACL 0.9% 1000 ML 1,000 ML IV SCH ×2 (08:24→16:45)
[2019-02-25] MEDS: PEPCID IV SCH ×2 (09:56→22:54)
[2019-02-25] MEDS: KEPPRA PO SCH ×2 (09:56→22:54)
[2019-02-25] MEDS: SODIUM CHLORIDE FLUSH SYRINGE 10 ML IV SCH ×2 (09:57→22:54)
[2019-02-25] MEDS: PROTONIX PO SCH (09:57)
[2019-02-25] MEDS: COLACE PO SCH ×2 (09:57→22:53)
--- NOTE | 2019-02-25 12:17 | Consultation ---
History of Present Illness - Reason for Consult Consult date: 02/25/19 acute renal failure - History of Present Illness The patient is a 68 YO male with history significant for Cerebral palsy, Se izures, Intellectual disability, PVD, Cerebellar ataxia, GERD, Dysphagia and [place] resident who presented to [facility] ED with decreased responsiveness and fever. Per sister he has difficulty is swallowing. Patient is nonverbal at baseline and unable to get any history from him. Initial BP was 97/56 mmHg. Labs were significant for WBC 13.2, Sodium 126 and creatinine 3.5. Patient was admitted with Acute encephalopathy and UTI. Nephrology was consulted for further evaluation. Patient was not seen during this visit. Past History Past Medical History: seizures, other (Cerebral palsy) Medications and Allergies Allergies Allergy/AdvReac Type Severity Reaction Status Date / Time No Known Allergies Allergy Verified 05/02/13 21:38 Home Medications Medication Instructions Recorded Confirmed Last Taken Type Pantoprazole [Protonix TAB] 40 mg PO QDAY 05/02/13 02/25/[address] [Malena Nguyen] 125 mg PO BID #60 tablet 05/09/13 02/25/19 Unknown Rx Docusate Sodium [Colace CAP] 100 mg PO BID #60 capsule 05/09/13 02/25/19 Unknown Rx Ondansetron [Zofran Odt] 4 mg PO Q6HR PRN #12 tab.rapdis 02/02/18 02/25/19 Unknown Rx cephALEXin [Keflex] 500 mg PO Q12HR #10 cap 11/21/18 02/25/19 Unknown Rx levETIRAcetam [Keppra TAB] 1,000 mg PO Q12HR 30 Days #120 11/21/18 02/25/19 Unknown Rx tablet Active Meds: Active Medications Acetaminophen (Tylenol) 650 mg PO Q4H PRN PRN Reason: Pain MILD(1-3)/Fever >100.5/WINKLER Divalproex Sodium (Malena Nguyen) 125 mg PO BID [facility] Last Admin: 02/25/19 09:57 Dose: 125 mg Documented by: Docusate Sodium (Colace) 100 mg PO BID [facility] Last Admin: 02/25/19 09:57 Dose: 100 mg Documented by: Famotidine (Pepcid) 10 mg IV BID [facility] Last Admin: 08/18/19 09:56 Dose: 10 mg Documented by: Hydromorphone HCl (Dilaudid) 0.5 mg IV Q3H PRN PRN Reason: Pain , Severe (7-10) Sodium Chloride (Nacl 0.9% 1000 Ml) 1,000 mls @ 100 mls/hr IV DIRECT [facility] Last Admin: 02/25/19 08:24 Dose: 100 mls/hr Documented by: Ceftriaxone Sodium (Rocephin/Ns 1 Gm/50 Ml) 1 gm in 50 mls @ 100 mls/hr IV Q24H [facility]; Protocol Levetiracetam (Keppra) 1,000 mg PO Q12HR [facility] Last Admin: 02/25/19 09:56 Dose: 1,000 mg Documented by: Ondansetron HCl (Zofran) 4 mg IV Q8H PRN PRN Reason: Nausea And Vomiting Ondansetron HCl (Zofran Odt) 4 mg PO Q6H PRN PRN Reason: Nausea Pantoprazole Sodium (Protonix) 40 mg PO QDAY [facility] Last Admin: 02/25/19 09:57 Dose: 40 mg Documented by: Sodium Chloride (Sodium Chloride Flush Syringe 10 Ml) 10 ml IV BID [facility] Last Admin: 02/25/19 09:57 Dose: 10 ml Documented by: Sodium Chloride (Sodium Chloride Flush Syringe 10 Ml) 10 ml IV PRN PRN PRN Reason: LINE FLUSH Review of Systems ROS unobtainable: due to mental status Exam - Vital Signs Vital signs: Vital Signs Pulse Resp Pulse Ox 82 12 96 02/24/19 09:31 02/24/19 09:31 02/24/19 09:31 Results - Lab Results 02/25/19 04:21 02/25/19 04:21 Most recent lab results Calcium 8.2 mg/dL (8.4-10.2) L 02/25/19 04:21 - Image Kidney/bladder ultrasound: report reviewed, other Assessment and Plan 1. Acute kidney injury: Vasomotor REJI superimposed on CKD stage 3 in the setting of volume depletion and UTI. Renal function is improving. Urine studies. Monitor renal function. Avoid nephrotoxic agents. Meds dosage based on GFR. 2. FEN: Hyponatremia, Sodium level is improving. Continue IV fluids. Monitor lytes. 3. R sided nephrolithiasis: CT abdomen. 4. UTI: Ceftriaxone. 5. Normochromic anemia: POA. 6. Cerebral palsy.
--- NOTE | 2019-02-25 13:26 | Progress Note ---
Assessment and Plan Assessment and plan: 68 yo male with hx of cerebral palsy, seizure, nrecurrent UTIs , sepsis, intellectual disability, PVD, cerebellar ataxia, GERD, dysphagia presents with decreased responsiveness and fever. Could not swallow according to sister's report. Patient is nonverbal at baseline. Resident at [facility]. DNR status Reviewed recent discharge summary and SNF documentation. He was treated for severe sepsis, UTI, encephalopathy, status epilepticus. Sepsis Sec to UTI IV Rocephin for now Acute metabolic encephalopathy IV fluids and IV Rocephin Cerebral palsy Supportive care REJI (acute kidney injury) improving UTI (urinary tract infection) IV Rocephin for now pending cultures Seizure disorder Cont Keppra Hyponatremia IV NS for now Check osmolality Thoracic compression fracture Ortho consult Probable conservative treatment Elevated troponin Sec to REJI DVT prophylaxis On Heparin andd GI prophylaxis History Interval history: no fevers, was able to swallow pills no evidence of discomfort Hospitalist Physical - Physical exam Narrative exam: General appearance: Present: mild distress, well-nourished - EENT Eyes: Present: PERRL ENT: hearing intact, clear oral mucosa - Neck Neck: Present: supple, normal ROM - Respiratory Respiratory effort: normal Respiratory: bilateral: CTA - Cardiovascular Heart rate: 72 Rhythm: regular Heart Sounds: Present: S1 & S2. Absent: rub, click - Extremities Extremities: no ischemia, pulses intact, pulses symmetrical, No edema Peripheral Pulses: within normal limits - Abdominal General gastrointestinal: Present: soft, non-tender, non-distended, normal bowel sounds Male genitourinary: Present: normal - Rectal Rectal Exam: deferred - Integumentary Integumentary: Present: clear, warm, dry - Musculoskeletal Musculoskeletal: generalized weakness - Psychiatric Psychiatric: appropriate mood/affect, depressed, other (Lethargic) - Neurologic Neurologic: other (Water Pump Installer exam could not be done b/c of patients altered sensorium) - Constitutional Vitals: Temp Pulse Resp BP Pulse Ox 99.9 F H 89 18 117/63 96 02/25/19 02:08 02/25/19 02:08 02/25/19 02:08 02/25/19 02:08 02/25/19 02:08 General appearance: Present: mild distress, well-nourished Results - Labs CBC & Chem 7: 02/25/19 04:21 02/25/19 04:21 Labs: Laboratory Last Values WBC 11.1 K/mm3 (4.5-11.0) H 02/25/19 04:21 RBC 3.34 M/mm3 (3.65-5.03) L 02/25/19 04:21 Hgb 10.5 gm/dl (11.8-15.2) L 02/25/19 04:21 Hct 31.1 % (35.5-45.6) L 02/25/19 04:21 MCV 93 fl (84-94) 02/25/19 04:21 MCH 31 pg (28-32) 02/25/19 04:21 MCHC 34 % (32-34) 02/25/19 04:21 RDW 15.6 % (13.2-15.2) H 02/25/19 04:21 Plt Count 413 K/mm3 (140-440) 02/25/19 04:21 Lymph % (Auto) 9.0 % (13.4-35.0) L 02/24/19 10:29 [place] % (Auto) Television Producer 02/25/19 04:21 Eos % (Auto) 0.1 % (0.0-4.3) 02/24/19 10:29 Baso % (Auto) 0.6 % (0.0-1.8) 02/24/19 10:29 Lymph # 1.2 K/mm3 (1.2-5.4) 02/24/19 10:29 [place] # 1.9 K/mm3 (0.0-0.8) H 02/24/19 10:29 Eos # 0.0 K/mm3 (0.0-0.4) 02/24/19 10:29 Baso # 0.1 K/mm3 (0.0-0.1) 02/24/19 10:29 Add Manual Diff Complete 02/25/19 04:21 Total Counted 100 02/25/19 04:21 Seg Neutrophils % 75.9 % (40.0-70.0) H 02/24/19 10:29 Seg Neuts % (Manual) 76.0 % (40.0-70.0) H 02/25/19 04:21 6.0 % 02/25/19 04:21 6.0 % (13.4-35.0) L 02/25/19 04:21 Reactive Lymphs % (Man) 0 % 02/25/19 04:21 12.0 % (0.0-7.3) H 02/25/19 04:21 0 % (0.0-4.3) 02/25/19 04:21 0 % (0.0-1.8) 02/25/19 04:21 0 % 02/25/19 04:21 0 % 02/25/19 04:21 0 % 02/25/19 04:21 0 % 02/25/19 04:21 Nucleated RBC % Not Reportable 02/25/19 04:21 Seg Neutrophils # 10.0 K/mm3 (1.8-7.7) H 02/24/19 10:29 Seg Neutrophils # Man 8.4 K/mm3 (1.8-7.7) H 02/25/19 04:21 Band Neutrophils # 0.7 K/mm3 02/25/19 04:21 0.7 K/mm3 (1.2-5.4) L 02/25/19 04:21 Abs React Lymphs (Man) 0.0 K/mm3 02/25/19 04:21 1.3 K/mm3 (0.0-0.8) H 02/25/19 04:21 0.0 K/mm3 (0.0-0.4) 02/25/19 04:21 0.0 K/mm3 (0.0-0.1) 02/25/19 04:21 0.0 K/mm3 02/25/19 04:21 0.0 K/mm3 02/25/19 04:21 0.0 K/mm3 02/25/19 04:21 Blast Cells # 0.0 K/mm3 02/25/19 04:21 WBC Morphology Not Reportable 02/25/19 04:21 Hypersegmented Neuts Not Reportable 02/25/19 04:21 Hyposegmented Neuts Not Reportable 02/25/19 04:21 Hypogranular Neuts Not Reportable 02/25/19 04:21 Not Reportable 02/25/19 04:21 Not Reportable 02/25/19 04:21 Not Reportable 02/25/19 04:21 Not Reportable 02/25/19 04:21 Not Reportable 02/25/19 04:21 Not Reportable 02/25/19 04:21 Consistent w auto 02/25/19 04:21 Rare 02/25/19 04:21 Plt Clumps, EDTA Not Reportable 02/25/19 04:21 Not Reportable 02/25/19 04:21 Not Reportable 02/25/19 04:21 Not Reportable 02/25/19 04:21 Plt Morphology Comment Not Reportable 02/25/19 04:21 RBC Morphology Not Reportable 02/25/19 04:21 Dimorphic RBCs Not Reportable 02/25/19 04:21 Not Reportable 02/25/19 04:21 Not Reportable 02/25/19 04:21 Not Reportable 02/25/19 04:21 Few 02/25/19 04:21 Not Reportable 02/25/19 04:21 Few 02/25/19 04:21 Not Reportable 02/25/19 04:21 Not Reportable 02/25/19 04:21 Not Reportable 02/25/19 04:21 Not Reportable 02/25/19 04:21 Not Reportable 02/25/19 04:21 Not Reportable 02/25/19 04:21 Not Reportable 02/25/19 04:21 Not Reportable 02/25/19 04:21 Not Reportable 02/25/19 04:21 Not Reportable 02/25/19 04:21 Not Reportable 02/25/19 04:21 Not Reportable 02/25/19 04:21 Not Reportable 02/25/19 04:21 Acanthocytes (Spur) Not Reportable 02/25/19 04:21 Rouleaux Not Reportable 02/25/19 04:21 Not Reportable 02/25/19 04:21 Not Reportable 02/25/19 04:21 Not Reportable 02/25/19 04:21 Not Reportable 02/25/19 04:21 Hem Pathologist Commnt No 02/25/19 04:21 PT 15.6 Sec. (12.2-14.9) H 02/24/19 10:29 INR 1.27 (0.87-1.13) H 02/24/19 10:29 Sodium 131 mmol/L (137-145) L 02/25/19 04:21 Potassium 5.0 mmol/L (3.6-5.0) 02/25/19 04:21 Chloride 98.8 mmol/L (98-107) 02/25/19 04:21 Carbon Dioxide 18 mmol/L (22-30) L 02/25/19 04:21 19 mmol/L 02/25/19 04:21 BUN 29 mg/dL (9-20) H 02/25/19 04:21 2.4 mg/dL (0.8-1.5) H 02/25/19 04:21 Estimated GFR 33 ml/min 02/25/19 04:21 12 % 02/25/19 04:21 Glucose 56 mg/dL (75-100) L 02/25/19 04:21 5.2 % (4-6) 02/24/19 10:29 Lactic Acid 1.20 mmol/L (0.7-2.0) 02/24/19 10:29 Calcium 8.2 mg/dL (8.4-10.2) L 02/25/19 04:21 0.30 mg/dL (0.1-1.2) 02/25/19 04:21 AST 17 units/L (5-40) 02/25/19 04:21 ALT 8 units/L (7-56) 02/25/19 04:21 43 units/L (35-129) 02/25/19 04:21 44.0 umol/L (25-60) 02/24/19 10:29 0.083 ng/mL (0.00-0.029) H 02/24/19 10:29 6.8 g/dL (6.3-8.2) 02/25/19 04:21 2.0 g/dL (3.9-5) L 02/25/19 04:21 0.4 % 02/25/19 04:21 Triglycerides 145 mg/dL (2-149) 02/24/19 10:29 Cholesterol 139 mg/dL (50-199) 02/24/19 10:29 87 mg/dL (50-130) 02/24/19 10:29 20 mg/dL (40-59) L 02/24/19 10:29 6.95 % 02/24/19 10:29 [place] (Yellow) 02/24/19 14:15 Cloudy (Clear) 02/24/19 14:15 6.0 (5.0-7.0) 02/24/19 14:15 Ur Specific [place] 1.020 (1.003-1.030) 02/24/19 14:15 100 mg/dl mg/dL (Negative) 02/24/19 14:15 Neg mg/dL (Negative) 02/24/19 14:15 Tr mg/dL (Negative) 02/24/19 14:15 Mod (Negative) 02/24/19 14:15 Neg (Negative) 02/24/19 14:15 Neg (Negative) 02/24/19 14:15 4.0 mg/dL (<2.0) 02/24/19 14:15 Ur Leukocyte Esterase Sm (Negative) 02/24/19 14:15 23.0 /HPF (0.0-6.0) H 02/24/19 14:15 20.0 /HPF (0.0-6.0) 02/24/19 14:15 U Epithel Cells (Auto) < 1.0 /HPF (0-13.0) 02/24/19 14:15 1+ /HPF (Negative) 02/24/19 14:15 Few /HPF 02/24/19 14:15 Salicylates < 0.3 mg/dL (2.8-20.0) L 02/24/19 10:29 Presumptive negative 02/24/19 14:15 Presumptive negative 02/24/19 14:15 Acetaminophen 5.1 ug/mL (10.0-30.0) L 02/24/19 10:29 Ur Barbiturates Screen Presumptive negative 02/24/19 14:15 Valproic Acid 72.9 ug/mL (50-100) 02/24/19 10:29 Ur Phencyclidine Scrn Presumptive negative 02/24/19 14:15 Ur Amphetamines Screen Presumptive negative 02/24/19 14:15 U Benzodiazepines Scrn Presumptive negative 02/24/19 14:15 Presumptive negative 02/24/19 14:15 U Marijuana (THC) Screen Presumptive negative 02/24/19 14:15 Disclamer 02/24/19 14:15 Plasma/Serum Alcohol < 0.01 % (0-0.07) 02/24/19 10:29 Active Medications - Current Medications Current Medications: Generic Name Dose Route Start Last Admin Trade Name Freq PRN Reason Stop Dose Admin Acetaminophen 650 mg 02/24/19 21:24 Tylenol PO Q4H PRN Pain MILD(1-3)/Fever >100.5/WINKLER Divalproex Sodium 125 mg 02/25/19 10:00 02/25/19 09:[address] PO 125 mg BID KANU Administration Docusate Sodium 100 mg 02/25/19 10:00 02/25/19 09:57 Colace PO 100 mg BID KANU Administration Famotidine 10 mg 02/24/19 22:00 02/25/19 09:56 Pepcid IV 10 mg BID KANU Administration Hydromorphone HCl 0.5 mg 02/24/19 21:24 Dilaudid IV Q3H PRN Pain , Severe (7-10) Sodium Chloride 1,000 mls @ 100 mls/hr 02/24/19 22:00 02/25/19 08:24 Nacl 0.9% 1000 Ml IV 100 mls/hr DIRECT KANU Administration Ceftriaxone Sodium 1 gm in 50 mls @ 100 mls/hr 02/25/19 22:00 Rocephin/Ns 1 Gm/50 Ml IV Q24H KANU Protocol Levetiracetam 1,000 mg 02/25/19 10:00 02/25/19 09:56 Keppra PO 1,000 mg Q12HR KANU Administration Ondansetron HCl 4 mg 02/24/19 21:24 Zofran IV Q8H PRN Nausea And Vomiting Ondansetron HCl 4 mg 02/25/19 06:23 Zofran Odt PO Q6H PRN Nausea Pantoprazole Sodium 40 mg 02/25/19 10:00 02/25/19 09:57 Protonix PO 40 mg QDAY KANU Administration Sodium Chloride 10 ml 02/24/19 22:00 02/25/19 09:57 Sodium Chloride Flush Syringe 10 Ml IV 10 ml BID KANU Administration Sodium Chloride 10 ml 02/24/19 21:24 Sodium Chloride Flush Syringe 10 Ml IV PRN PRN LINE FLUSH
--- NOTE | 2019-02-25 15:03 | Ultrasound Report ---
ULTRASOUND RENAL INDICATION: Acute renal failure.. COMPARISON: CT of the chest 02/24/2019 FINDINGS: RIGHT KIDNEY: Size: 10.4 cm. Echogenicity: Normal. Cortical thickness: 1.2 cm. Hydronephrosis: None. Cyst or mass: None. Stones: None. LEFT KIDNEY: Size: 12.8 cm. Echogenicity: Normal. Cortical thickness: 1.5 cm. Hydronephrosis: Minimum dilatation collecting system. Cyst or mass: None. Stones: 1.6 cm Urinary Bladder: No significant abnormality. Free Fluid: None. Additional Findings: None. IMPRESSION 1. Left nephrolithiasis 2. Minimum dilatation left collecting system Signer Name: Mick Giraldo MD Signed: 02/25/2019 2:59 PM Workstation Name: [id number]
[2019-02-25 21:19] LABS: Creatinine,Urine 92.1 mg/dL (0.1-20.0)
[2019-02-25] MEDS: ROCEPHIN/NS 1 GM/50 ML 1 GM/50 ML BAG IV SCH (22:52)
[2019-02-26] MEDS: NACL 0.9% 1000 ML 1,000 ML IV SCH (06:06)
[2019-02-26] MEDS: KEPPRA PO SCH ×2 (10:17→22:24)
[2019-02-26] MEDS: COLACE PO SCH ×2 (10:18→22:25)
[2019-02-26] MEDS: PROTONIX PO SCH (10:18)
[2019-02-26] MEDS: SODIUM CHLORIDE FLUSH SYRINGE 10 ML IV SCH ×2 (10:18→22:22)
--- NOTE | 2019-02-26 11:43 | Progress Note ---
Hospitalist Physical - Constitutional Vitals: Temp Pulse Resp BP Pulse Ox 100.2 F H 79 18 99/53 97 02/26/19 07:36 02/26/19 07:36 02/26/19 07:36 02/26/19 07:36 02/26/19 07:36 General appearance: Present: mild distress, well-nourished Results - Labs CBC & Chem 7: 02/25/19 04:21 02/25/19 04:21 Labs: Laboratory Last Values WBC 11.1 K/mm3 (4.5-11.0) H 02/25/19 04:21 RBC 3.34 M/mm3 (3.65-5.03) L 02/25/19 04:21 Hgb 10.5 gm/dl (11.8-15.2) L 02/25/19 04:21 Hct 31.1 % (35.5-45.6) L 02/25/19 04:21 MCV 93 fl (84-94) 02/25/19 04:21 MCH 31 pg (28-32) 02/25/19 04:21 MCHC 34 % (32-34) 02/25/19 04:21 RDW 15.6 % (13.2-15.2) H 02/25/19 04:21 Plt Count 413 K/mm3 (140-440) 02/25/19 04:21 Lymph % (Auto) 9.0 % (13.4-35.0) L 02/24/19 10:29 Morris % (Auto) Search Manager 02/25/19 04:21 Eos % (Auto) 0.1 % (0.0-4.3) 02/24/19 10:29 Baso % (Auto) 0.6 % (0.0-1.8) 02/24/19 10:29 Lymph # 1.2 K/mm3 (1.2-5.4) 02/24/19 10:29 Morris # 1.9 K/mm3 (0.0-0.8) H 02/24/19 10:29 Eos # 0.0 K/mm3 (0.0-0.4) 02/24/19 10:29 Baso # 0.1 K/mm3 (0.0-0.1) 02/24/19 10:29 Add Manual Diff Complete 02/25/19 04:21 Total Counted 100 02/25/19 04:21 Seg Neutrophils % 75.9 % (40.0-70.0) H 02/24/19 10:29 Seg Neuts % (Manual) 76.0 % (40.0-70.0) H 02/25/19 04:21 6.0 % 02/25/19 04:21 6.0 % (13.4-35.0) L 02/25/19 04:21 Reactive Lymphs % (Man) 0 % 02/25/19 04:21 12.0 % (0.0-7.3) H 02/25/19 04:21 0 % (0.0-4.3) 02/25/19 04:21 0 % (0.0-1.8) 02/25/19 04:21 0 % 02/25/19 04:21 0 % 02/25/19 04:21 0 % 02/25/19 04:21 0 % 02/25/19 04:21 Nucleated RBC % Not Reportable 02/25/19 04:21 Seg Neutrophils # 10.0 K/mm3 (1.8-7.7) H 02/24/19 10:29 Seg Neutrophils # Man 8.4 K/mm3 (1.8-7.7) H 02/25/19 04:21 Band Neutrophils # 0.7 K/mm3 02/25/19 04:21 0.7 K/mm3 (1.2-5.4) L 02/25/19 04:21 Abs React Lymphs (Man) 0.0 K/mm3 02/25/19 04:21 1.3 K/mm3 (0.0-0.8) H 02/25/19 04:21 0.0 K/mm3 (0.0-0.4) 02/25/19 04:21 0.0 K/mm3 (0.0-0.1) 02/25/19 04:21 0.0 K/mm3 02/25/19 04:21 0.0 K/mm3 02/25/19 04:21 0.0 K/mm3 02/25/19 04:21 Blast Cells # 0.0 K/mm3 02/25/19 04:21 WBC Morphology Not Reportable 02/25/19 04:21 Hypersegmented Neuts Not Reportable 02/25/19 04:21 Hyposegmented Neuts Not Reportable 02/25/19 04:21 Hypogranular Neuts Not Reportable 02/25/19 04:21 Not Reportable 02/25/19 04:21 Not Reportable 02/25/19 04:21 Not Reportable 02/25/19 04:21 Not Reportable 02/25/19 04:21 Not Reportable 02/25/19 04:21 Not Reportable 02/25/19 04:21 Consistent w auto 02/25/19 04:21 Rare 02/25/19 04:21 Plt Clumps, EDTA Not Reportable 02/25/19 04:21 Not Reportable 02/25/19 04:21 Not Reportable 02/25/19 04:21 Not Reportable 02/25/19 04:21 Plt Morphology Comment Not Reportable 02/25/19 04:21 RBC Morphology Not Reportable 02/25/19 04:21 Dimorphic RBCs Not Reportable 02/25/19 04:21 Not Reportable 02/25/19 04:21 Not Reportable 02/25/19 04:21 Not Reportable 02/25/19 04:21 Few 02/25/19 04:21 Not Reportable 02/25/19 04:21 Few 02/25/19 04:21 Not Reportable 02/25/19 04:21 Not Reportable 02/25/19 04:21 Not Reportable 02/25/19 04:21 Not Reportable 02/25/19 04:21 Not Reportable 02/25/19 04:21 Not Reportable 02/25/19 04:21 Not Reportable 02/25/19 04:21 Not Reportable 02/25/19 04:21 Not Reportable 02/25/19 04:21 Not Reportable 02/25/19 04:21 Not Reportable 02/25/19 04:21 Not Reportable 02/25/19 04:21 Not Reportable 02/25/19 04:21 Acanthocytes (Spur) Not Reportable 02/25/19 04:21 Rouleaux Not Reportable 02/25/19 04:21 Not Reportable 02/25/19 04:21 Not Reportable 02/25/19 04:21 Not Reportable 02/25/19 04:21 Not Reportable 02/25/19 04:21 Hem Pathologist Commnt No 02/25/19 04:21 PT 15.6 Sec. (12.2-14.9) H 02/24/19 10:29 INR 1.27 (0.87-1.13) H 02/24/19 10:29 Sodium 131 mmol/L (137-145) L 02/25/19 04:21 Potassium 5.0 mmol/L (3.6-5.0) 02/25/19 04:21 Chloride 98.8 mmol/L (98-107) 02/25/19 04:21 Carbon Dioxide 18 mmol/L (22-30) L 02/25/19 04:21 19 mmol/L 02/25/19 04:21 BUN 29 mg/dL (9-20) H 02/25/19 04:21 2.4 mg/dL (0.8-1.5) H 02/25/19 04:21 Estimated GFR 33 ml/min 02/25/19 04:21 12 % 02/25/19 04:21 Glucose 56 mg/dL (75-100) L 02/25/19 04:21 POC Glucose 55 (70-105) L 02/25/19 16:02 5.2 % (4-6) 02/24/19 10:29 Lactic Acid 1.20 mmol/L (0.7-2.0) 02/24/19 10:29 Calcium 8.2 mg/dL (8.4-10.2) L 02/25/19 04:21 0.30 mg/dL (0.1-1.2) 02/25/19 04:21 AST 17 units/L (5-40) 02/25/19 04:21 ALT 8 units/L (7-56) 02/25/19 04:21 43 units/L (35-129) 02/25/19 04:21 44.0 umol/L (25-60) 02/24/19 10:29 0.083 ng/mL (0.00-0.029) H 02/24/19 10:29 6.8 g/dL (6.3-8.2) 02/25/19 04:21 2.0 g/dL (3.9-5) L 02/25/19 04:21 0.4 % 02/25/19 04:21 Triglycerides 145 mg/dL (2-149) 02/24/19 10:29 Cholesterol 139 mg/dL (50-199) 02/24/19 10:29 87 mg/dL (50-130) 02/24/19 10:29 20 mg/dL (40-59) L 02/24/19 10:29 6.95 % 02/24/19 10:29 Elba (Yellow) 02/24/19 14:15 Cloudy (Clear) 02/24/19 14:15 6.0 (5.0-7.0) 02/24/19 14:15 Ur Specific Melfa 1.020 (1.003-1.030) 02/24/19 14:15 100 mg/dl mg/dL (Negative) 02/24/19 14:15 Neg mg/dL (Negative) 02/24/19 14:15 Tr mg/dL (Negative) 02/24/19 14:15 Mod (Negative) 02/24/19 14:15 Neg (Negative) 02/24/19 14:15 Neg (Negative) 02/24/19 14:15 4.0 mg/dL (<2.0) 02/24/19 14:15 Ur Leukocyte Esterase Sm (Negative) 02/24/19 14:15 23.0 /HPF (0.0-6.0) H 02/24/19 14:15 20.0 /HPF (0.0-6.0) 02/24/19 14:15 U Epithel Cells (Auto) < 1.0 /HPF (0-13.0) 02/24/19 14:15 1+ /HPF (Negative) 02/24/19 14:15 Few /HPF 02/24/19 14:15 92.1 mg/dL (0.1-20.0) H 02/25/19 Unknown 125 mmol/L 02/25/19 Unknown Salicylates < 0.3 mg/dL (2.8-20.0) L 02/24/19 10:29 Presumptive negative 02/24/19 14:15 Presumptive negative 02/24/19 14:15 Acetaminophen 5.1 ug/mL (10.0-30.0) L 02/24/19 10:29 Ur Barbiturates Screen Presumptive negative 02/24/19 14:15 Valproic Acid 72.9 ug/mL (50-100) 02/24/19 10:29 Ur Phencyclidine Scrn Presumptive negative 02/24/19 14:15 Ur Amphetamines Screen Presumptive negative 02/24/19 14:15 U Benzodiazepines Scrn Presumptive negative 02/24/19 14:15 Presumptive negative 02/24/19 14:15 U Marijuana (THC) Screen Presumptive negative 02/24/19 14:15 Disclamer 02/24/19 14:15 Plasma/Serum Alcohol < 0.01 % (0-0.07) 02/24/19 10:29 Active Medications - Current Medications Current Medications: Generic Name Dose Route Start Last Admin Trade Name Freq PRN Reason Stop Dose Admin Acetaminophen 650 mg 02/24/19 21:24 Tylenol PO Q4H PRN Pain MILD(1-3)/Fever >100.5/WINKLER Divalproex Sodium 125 mg 02/25/19 10:00 02/26/19 10:[address] PO 125 mg BID KANU Administration Docusate Sodium 100 mg 02/25/19 10:00 02/26/19 10:18 Colace PO 100 mg BID KANU Administration Hydromorphone HCl 0.5 mg 02/24/19 21:24 Dilaudid IV Q3H PRN Pain , Severe (7-10) Ceftriaxone Sodium 1 gm in 50 mls @ 100 mls/hr 02/25/19 22:00 02/25/19 22:52 Rocephin/Ns 1 Gm/50 Ml IV 100 mls/hr Q24H KANU Administration Protocol Dextrose/Sodium Chloride 1,000 mls @ 100 mls/hr 02/26/19 12:00 D5ns IV DIRECT KANU Levetiracetam 1,000 mg 02/25/19 10:00 02/26/19 10:17 Keppra PO 1,000 mg Q12HR KANU Administration Ondansetron HCl 4 mg 02/24/19 21:24 Zofran IV Q8H PRN Nausea And Vomiting Ondansetron HCl 4 mg 02/25/19 06:23 Zofran Odt PO Q6H PRN Nausea Pantoprazole Sodium 40 mg 02/25/19 10:00 02/26/19 10:18 Protonix PO 40 mg QDAY KANU Administration Sodium Chloride 10 ml 02/24/19 22:00 02/26/19 10:18 Sodium Chloride Flush Syringe 10 Ml IV 10 ml BID KANU Administration Sodium Chloride 10 ml 02/24/19 21:24 Sodium Chloride Flush Syringe 10 Ml IV PRN PRN LINE FLUSH
[2019-02-26] MEDS: D5NS 1,000 ML IV SCH ×2 (12:27→22:34)
--- NOTE | 2019-02-26 13:18 | Cat Scan Report ---
CT ABDOMEN AND PELVIS WITHOUT CONTRAST HISTORY: left kidney stone. Acute left flank pain COMPARISON: CT abdomen/pelvis from 02/02/2018 TECHNIQUE: CT images of the abdomen and pelvis were obtained without administration of intravenous co ntrast. All CT scans at this location are performed using CT dose reduction for ALARA by means of au tomated exposure control. FINDINGS: Lungs/bones: There is mild right basilar atelectasis. Degenerative changes are present in the spine with nothing acute. Abdomen/pelvis: The gallbladder is surgically absent. The liver, spleen, pancreas, adrenals, and pro ximal GI tract appear unremarkable. There is a 8 mm stone in the proximal left ureter near the ureteropelvic junction on image #[id number] with m ild hydronephrosis. Additional nonobstructive nephrolithiasis again noted in the left kidney with lar gest stone in the midpole measuring 1.4 cm on image #58. There is mild left renal edema/perinephric s tranding. No mass or cyst identified. Urinary bladder is mostly collapsed but otherwise unremarkable. Prostate is unremarkable. No pelvic f ree fluid. No acute colonic abnormality identified. IMPRESSION: 1. 8 mm stone at the left UPJ with mild hydronephrosis. 2. Additional nonobstructive nephrolithiasis as above. Signer Name: Bishnu Jacobo MD Signed: 02/26/2019 1:14 PM Workstation Name: [id number]
--- NOTE | 2019-02-26 14:31 | Consultation ---
History of Present Illness - HPI Consult date: 02/26/19 Consult reason: back pain History of present illness: 68 yo male with hx of cerebral palsy, seizure, nrecurrent UTIs , sepsis, intellectual disability, PVD, cerebellar ataxia, GERD, dysphagia presents with decreased responsiveness and fever. Could not swallow according to sister's report. Patient is nonverbal at baseline. Resident at [facility]. Unable to obtain hx from patient. History obtained from sister. A CT scan of the chest showed multiple compression fractures in the thoracic spine area age undetermined.. Patient is nonambulatory for the past 15 years in addition patient does not have any pain in his thoracic or lumbar areas Medications and Allergies Allergies Allergy/AdvReac Type Severity Reaction Status Date / Time No Known Allergies Allergy Verified 05/02/13 21:38 Home Medications Medication Instructions Recorded Confirmed Last Taken Type Pantoprazole [Protonix TAB] 40 mg PO QDAY 05/02/13 02/25/[address] [Albertate Dr] 125 mg PO BID #60 tablet 05/09/13 02/25/19 Unknown Rx Docusate Sodium [Colace CAP] 100 mg PO BID #60 capsule 05/09/13 02/25/19 Unknown Rx Ondansetron [Zofran Odt] 4 mg PO Q6HR PRN #12 tab.rapdis 02/02/18 02/25/19 Unknown Rx cephALEXin [Keflex] 500 mg PO Q12HR #10 cap 11/21/18 02/25/19 Unknown Rx levETIRAcetam [Keppra TAB] 1,000 mg PO Q12HR 30 Days #120 11/21/18 02/25/19 Unknown Rx tablet Active Meds: Active Medications Acetaminophen (Tylenol) 650 mg PO Q4H PRN PRN Reason: Pain MILD(1-3)/Fever >100.5/WINKLER Divalproex Sodium (Depakote Dr) 125 mg PO BID [facility] Last Admin: 02/26/19 10:17 Dose: 125 mg Documented by: Docusate Sodium (Colace) 100 mg PO BID [facility] Last Admin: 02/26/19 10:18 Dose: 100 mg Documented by: Hydromorphone HCl (Dilaudid) 0.5 mg IV Q3H PRN PRN Reason: Pain , Severe (7-10) Ceftriaxone Sodium (Rocephin/Ns 1 Gm/50 Ml) 1 gm in 50 mls @ 100 mls/hr IV Q24H [facility]; Protocol Last Admin: 02/25/19 22:52 Dose: 100 mls/hr Documented by: Dextrose/Sodium Chloride (D5ns) 1,000 mls @ 100 mls/hr IV DIRECT [facility] Last Admin: 02/26/19 12:27 Dose: 100 mls/hr Documented by: Levetiracetam (Keppra) 1,000 mg PO Q12HR [facility] Last Admin: 02/26/19 10:17 Dose: 1,000 mg Documented by: Ondansetron HCl (Zofran) 4 mg IV Q8H PRN PRN Reason: Nausea And Vomiting Ondansetron HCl (Zofran Odt) 4 mg PO Q6H PRN PRN Reason: Nausea Pantoprazole Sodium (Protonix) 40 mg PO QDAY [facility] Last Admin: 02/26/19 10:18 Dose: 40 mg Documented by: Sodium Chloride (Sodium Chloride Flush Syringe 10 Ml) 10 ml IV BID [facility] Last Admin: 02/26/19 10:18 Dose: 10 ml Documented by: Sodium Chloride (Sodium Chloride Flush Syringe 10 Ml) 10 ml IV PRN PRN PRN Reason: LINE FLUSH Physical Examination - Physical exam Narrative exam: At thoracic spine - nontender to palpation, no swelling/bruising noted Eyes: PERRL ENT: Positive: clear oral mucosa Respiratory effort: normal Respiratory: bilateral: CTA Rhythm: regular Heart Sounds: Positive: S1 & S2 General gastrointestinal: Positive: soft, non-tender, non-distended, normal bowel sounds Integumentary: clear, warm, dry Neurologic: Positive: CNII-XII intact, moves all extremities, gait normal. Negative: focal deficits Assessment and Plan Assessment - doubt CT scan findings suggesting acute compression fractures most likely they are old Recommendations - we treated conservatively patient does not require any type of immobilization
[2019-02-26 14:35] LABS: Calcium 8.1 mg/dL (8.4-10.2)
--- NOTE | 2019-02-26 14:35 | Progress Note ---
Assessment and Plan 1. Acute kidney injury: Vasomotor REJI superimposed on CKD stage 3 in the setting of volume depletion and UTI. Continue IV fluids. Renal function is improving. Monitor renal function. Avoid nephrotoxic agents. Meds dosage based on GFR. 2. FEN: Hyponatremia, monitor. Continue IV fluids. Add Sodium bicarbonate. Monitor lytes. 3. R sided nephrolithiasis with mild hydro: Consult Urology. 4. UTI: Ceftriaxone. 5. Normochromic anemia: POA. 6. Thoracic compression fracture. 7. Cerebral palsy. D/w his sister and answered all questions. Subjective Date of service: 02/26/19 Interval history: Patient was seen and examined at the bedside. Sister at the bedside. Objective - Vital Signs Vital signs: Vital Signs - 12hr 02/26/19 02/26/19 02/26/19 07:35 07:36 12:07 Temperature 100.2 F H 98.4 F Pulse Rate 79 78 Respiratory 20 18 16 Rate Blood Pressure 99/53 116/68 O2 Sat by Pulse 95 97 97 Oximetry - General Appearance General appearance: well-developed, well-nourished, appears stated age, other (no distress) EENT: ATNC, PERRL, mucous membranes moist, hearing intact Neck: supple Respiratory: Present: Clear to Ascultation Cardiology: regular, S1S2, no murmurs Gastrointestinal: normoactive bowel sounds, no tenderness, no distended Integumentary: no rash, warm and dry Neurologic: aphasic, other (able to move extremities) Musculoskeletal: other (no edema) Psychiatric: cooperative - Lab 02/25/19 04:21 02/26/19 14:07 Most recent lab results Calcium 8.2 mg/dL (8.4-10.2) L 02/25/19 04:21 92.1 mg/dL (0.1-20.0) H 02/25/19 Unknown 125 mmol/L 02/25/19 Unknown Medications & Allergies - Medications Allergies/Adverse Reactions: Allergies No Known Allergies Allergy (Verified 05/02/13 21:38) Home Medications: Home Medications Medication Instructions Recorded Confirmed Last Taken Type Pantoprazole [Protonix TAB] 40 mg PO QDAY 05/02/13 02/25/[address] [Depakote Dr] 125 mg PO BID #60 tablet 05/09/13 02/25/19 Unknown Rx Docusate Sodium [Colace CAP] 100 mg PO BID #60 capsule 05/09/13 02/25/19 Unknown Rx Ondansetron [Zofran Odt] 4 mg PO Q6HR PRN #12 tab.rapdis 02/02/18 02/25/19 Unknown Rx cephALEXin [Keflex] 500 mg PO Q12HR #10 cap 11/21/18 02/25/19 Unknown Rx levETIRAcetam [Keppra TAB] 1,000 mg PO Q12HR 30 Days #120 11/21/18 02/25/19 Unknown Rx tablet Active Medications: Generic Name Dose Route Start Last Admin Trade Name Freq PRN Reason Stop Dose Admin Acetaminophen 650 mg 02/24/19 21:24 Tylenol PO Q4H PRN Pain MILD(1-3)/Fever >100.5/WINKLER Divalproex Sodium 125 mg 02/25/19 10:00 02/26/19 10:[address] PO 125 mg BID KANU Administration Docusate Sodium 100 mg 02/25/19 10:00 02/26/19 10:18 Colace PO 100 mg BID KANU Administration Hydromorphone HCl 0.5 mg 02/24/19 21:24 Dilaudid IV Q3H PRN Pain , Severe (7-10) Ceftriaxone Sodium 1 gm in 50 mls @ 100 mls/hr 02/25/19 22:00 02/25/19 22:52 Rocephin/Ns 1 Gm/50 Ml IV 100 mls/hr Q24H KANU Administration Protocol Dextrose/Sodium Chloride 1,000 mls @ 100 mls/hr 02/26/19 12:00 02/26/19 12:27 D5ns IV 100 mls/hr DIRECT KANU Administration Levetiracetam 1,000 mg 02/25/19 10:00 02/26/19 10:17 Keppra PO 1,000 mg Q12HR KANU Administration Ondansetron HCl 4 mg 02/24/19 21:24 Zofran IV Q8H PRN Nausea And Vomiting Ondansetron HCl 4 mg 02/25/19 06:23 Zofran Odt PO Q6H PRN Nausea Pantoprazole Sodium 40 mg 02/25/19 10:00 02/26/19 10:18 Protonix PO 40 mg QDAY KANU Administration Sodium Chloride 10 ml 02/24/19 22:00 02/26/19 10:18 Sodium Chloride Flush Syringe 10 Ml IV 10 ml BID KANU Administration Sodium Chloride 10 ml 02/24/19 21:24 Sodium Chloride Flush Syringe 10 Ml IV PRN PRN LINE FLUSH
[2019-02-26] MEDS: TESSALON PERLES PO SCH ×2 (17:29→22:24)
--- NOTE | 2019-02-26 17:39 | Progress Note ---
Assessment and Plan no acute distress rec stent f/u litho informed consent dictated Subjective Date of service: 02/26/19 Objective - Constitutional Vitals: Vital Signs - 12hr 02/26/19 02/26/19 02/26/19 07:35 07:36 10:00 Temperature 100.2 F H Pulse Rate 79 78 Respiratory 20 18 Rate Blood Pressure 99/53 O2 Sat by Pulse 95 97 Oximetry 02/26/19 12:07 Temperature 98.4 F Pulse Rate 78 Respiratory 16 Rate Blood Pressure 116/68 O2 Sat by Pulse 97 Oximetry General appearance: Present: no acute distress - Neck Neck: supple - Respiratory Respiratory effort: normal Extremities: no ischemia - Musculoskeletal Musculoskeletal: other (confused ) - Labs CBC & Chem 7: 02/25/19 04:21 02/26/19 14:07 Labs: Abnormal lab results 02/25/19 02/26/19 Range/Units Unknown 14:07 Sodium 130 L (137-145) mmol/L Carbon Dioxide 21 L (22-30) mmol/L BUN 22 H (9-20) mg/dL Creatinine 1.8 H (0.8-1.5) mg/dL Glucose 124 H (75-100) mg/dL Calcium 8.1 L (8.4-10.2) mg/dL Urine Creatinine 92.1 H (0.1-20.0) mg/dL Medications & Allergies - Medications Allergies/Adverse Reactions: Allergies No Known Allergies Allergy (Verified 05/02/13 21:38) Home Medications: Home Medications Medication Instructions Recorded Confirmed Last Taken Type Pantoprazole [Protonix TAB] 40 mg PO QDAY 05/02/13 02/25/[address] [Depakote Dr] 125 mg PO BID #60 tablet 05/09/13 02/25/19 Unknown Rx Docusate Sodium [Colace CAP] 100 mg PO BID #60 capsule 05/09/13 02/25/19 Unknown Rx Ondansetron [Zofran Odt] 4 mg PO Q6HR PRN #12 tab.rapdis 02/02/18 02/25/19 Unknown Rx cephALEXin [Keflex] 500 mg PO Q12HR #10 cap 11/21/18 02/25/19 Unknown Rx levETIRAcetam [Keppra TAB] 1,000 mg PO Q12HR 30 Days #120 11/21/18 02/25/19 Unknown Rx tablet Active Medications: Generic Name Dose Route Start Last Admin Trade Name Freq PRN Reason Stop Dose Admin Acetaminophen 650 mg 02/24/19 21:24 Tylenol PO Q4H PRN Pain MILD(1-3)/Fever >100.5/WINKLER Benzonatate 100 mg 02/26/19 18:00 02/26/19 17:29 Tessalon Perles PO 100 mg Q8HR KANU Administration Divalproex Sodium 125 mg 02/25/19 10:00 02/26/19 10:[address] PO 125 mg BID KANU Administration Docusate Sodium 100 mg 02/25/19 10:00 02/26/19 10:18 Colace PO 100 mg BID KANU Administration Guaifenesin 10 ml 02/26/19 16:58 Guaifenesin Dm Syrup PO Q4H PRN Cough Hydromorphone HCl 0.5 mg 02/24/19 21:24 Dilaudid IV Q3H PRN Pain , Severe (7-10) Ceftriaxone Sodium 1 gm in 50 mls @ 100 mls/hr 02/25/19 22:00 02/25/19 22:52 Rocephin/Ns 1 Gm/50 Ml IV 100 mls/hr Q24H KANU Administration Protocol Dextrose/Sodium Chloride 1,000 mls @ 100 mls/hr 02/26/19 12:00 02/26/19 12:27 D5ns IV 100 mls/hr DIRECT KANU Administration Levetiracetam 1,000 mg 02/25/19 10:00 02/26/19 10:17 Keppra PO 1,000 mg Q12HR KANU Administration Ondansetron HCl 4 mg 02/24/19 21:24 Zofran IV Q8H PRN Nausea And Vomiting Ondansetron HCl 4 mg 02/25/19 06:23 Zofran Odt PO Q6H PRN Nausea Pantoprazole Sodium 40 mg 02/25/19 10:00 02/26/19 10:18 Protonix PO 40 mg QDAY KANU Administration Sodium Bicarbonate 650 mg 02/26/19 20:00 Sodium Bicarbonate PO TID KANU Sodium Chloride 10 ml 02/24/19 22:00 02/26/19 10:18 Sodium Chloride Flush Syringe 10 Ml IV 10 ml BID KANU Administration Sodium Chloride 10 ml 02/24/19 21:24 Sodium Chloride Flush Syringe 10 Ml IV PRN PRN LINE FLUSH
--- NOTE | 2019-02-26 18:43 | XRay Report ---
CHEST 1 VIEW INDICATION / CLINICAL INFORMATION: cough. COMPARISON: 02/24/2019 FINDINGS: SUPPORT DEVICES: None. HEART / MEDIASTINUM: No significant abnormality. Thoracic aorta remains markedly tortuous, but unchan ged from prior study. LUNGS / PLEURA: No significant pulmonary or pleural abnormality. No pneumothorax. ADDITIONAL FINDINGS: There is mild elevation of the right hemidiaphragm which is chronic. IMPRESSION: 1. No acute findings. No interval change from prior exam. Signer Name: Andria Higginbotham MD Signed: 02/26/2019 6:39 PM Workstation Name: [id number]
[2019-02-26] MEDS: SODIUM BICARBONATE PO SCH (19:21)
[2019-02-26] MEDS: TYLENOL PO PRN (19:53)
[2019-02-26] MEDS: ROCEPHIN/NS 1 GM/50 ML 1 GM/50 ML BAG IV SCH (22:21)
--- NOTE | 2019-02-27 01:06 | Consultation ---
UROLOGY CONSULT HISTORY OF PRESENT ILLNESS: The patient is a 68-year-old gentleman with left upper ureteral stone 8 mm. He has cerebral palsy, some dementia and with some low-grade fevers. He has difficulty swallowing. He is nonverbal. PAST MEDICAL HISTORY: History of stones in the past. PAST SURGICAL HISTORY: Cholecystectomy, appendectomy. SOCIAL HISTORY: Negative. MEDICATIONS: He is on antibiotics now, Depakote and laxative. REVIEW OF SYSTEMS: As mentioned above, I cannot obtain a history. He is aphasic. PHYSICAL EXAMINATION: GENERAL: He is in no distress. ABDOMEN: Soft, nonlocalized tenderness. No evidence of CVA tenderness. IMPRESSION: Left upper ureteral stone, anemia, cerebral palsy, for stenting. Followup lithotripsy as a staged procedure. JOB# [id number] [place]
[2019-02-27 05:30] LABS: Calcium 8.2 mg/dL (8.4-10.2)
[2019-02-27] MEDS: TESSALON PERLES PO SCH ×3 (06:56→22:37)
[2019-02-27] MEDS: SODIUM BICARBONATE PO SCH ×3 (08:16→22:40)
[2019-02-27] MEDS: TYLENOL PO PRN (08:16)
[2019-02-27] MEDS: KEPPRA PO SCH ×2 (09:11→22:36)
[2019-02-27] MEDS: PROTONIX PO SCH (09:11)
[2019-02-27] MEDS: SODIUM CHLORIDE FLUSH SYRINGE 10 ML IV SCH (09:11)
[2019-02-27] MEDS: COLACE PO SCH ×2 (09:11→22:37)
--- NOTE | 2019-02-27 09:47 | Anesthesia Consultation ---
Anesthesia Consult and Med Hx Date of service: 02/27/19 - Airway Anesthetic Teeth Evaluation: Poor (multiple missing, broken teeth) ROM Head & Neck: Adequate Mental/Hyoid Distance: Adequate Mallampati Class: Class II Intubation Access Assessment: Probably Good - Pre-Operative Health Status ASA Pre-Surgery Classification: ASA3 Proposed Anesthetic Plan: General - Pulmonary Hx Smoking: No Hx Asthma: No COPD: No Hx Pneumonia: No - Cardiovascular System Hx Peripheral Vascular Disease: Yes - Central Nervous System Hx Neuromuscular Disorder: Yes (cerebral palsy) Hx Seizures: Yes Hx Psychiatric Problems: Yes (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
--- NOTE | 2019-02-27 09:50 | Anesthesia Day of Surgery ---
Anesthesia Day of Surgery - Day of Surgery Patient Examined: Yes Patient H&P Reviewed: Yes Patient is NPO: Yes
[2019-02-27] MEDS ORDERED: DIPRIVAN 10 MG/ML IV ONE (10:35)
[2019-02-27] MEDS ORDERED: SUBLIMAZE ONE (10:35)
[2019-02-27] MEDS ORDERED: XYLOCAINE MPF 2% ONE ×2 (10:40→17:10)
[2019-02-27] MEDS ORDERED: LACTATED RINGERS 0 ML ONE (10:50)
[2019-02-27] MEDS: NACL 0.9% 1000 ML 1,000 ML IV SCH ×2 (11:00→22:41)
[2019-02-27] MEDS ORDERED: ANCEF/STERILE WATER 2 GM/20 ML IV NR (12:00)
--- NOTE | 2019-02-27 13:02 | Progress Note ---
Assessment and Plan Assessment and plan: 68 yo male with hx of cerebral palsy, seizure, nrecurrent UTIs , sepsis, intellectual disability, PVD, cerebellar ataxia, GERD, dysphagia presents with decreased responsiveness and fever. Could not swallow according to sister's report. Patient is nonverbal at baseline. Resident at [facility]. DNR status Reviewed recent discharge summary and [facility] documentation. He was treated for severe sepsis, UTI, encephalopathy, status epilepticus. Sepsis Sec to UTI IV Rocephin for now, ucx contaminated, will be dc on empiric abx LEft UPJ stone to OR today Acute metabolic encephalopathy IV fluids and IV Rocephin Cerebral palsy Supportive care REJI (acute kidney injury) improving UTI (urinary tract infection) IV Rocephin for now pending cultures Seizure disorder Cont Keppra Hyponatremia IV NS for now Check osmolality Thoracic compression fracture Ortho consult Probable conservative treatment Elevated troponin Sec to REJI DVT prophylaxis On Heparin andd GI prophylaxis DC in 1-2 days after kidney stone addressed and when ok by nephrology, chronic [place] resident Hospitalist Physical - Constitutional Vitals: Temp Pulse Resp BP Pulse Ox 99.2 F 101 H 22 96/38 96 02/27/19 11:00 02/27/19 11:00 02/27/19 11:00 02/27/19 11:00 02/27/19 11:00 General appearance: Present: no acute distress Results - Labs CBC & Chem 7: 02/25/19 04:21 02/28/19 03:57 Labs: Laboratory Last Values WBC 11.1 K/mm3 (4.5-11.0) H 02/25/19 04:21 RBC 3.34 M/mm3 (3.65-5.03) L 02/25/19 04:21 Hgb 10.5 gm/dl (11.8-15.2) L 02/25/19 04:21 Hct 31.1 % (35.5-45.6) L 02/25/19 04:21 MCV 93 fl (84-94) 02/25/19 04:21 MCH 31 pg (28-32) 02/25/19 04:21 MCHC 34 % (32-34) 02/25/19 04:21 RDW 15.6 % (13.2-15.2) H 02/25/19 04:21 Plt Count 413 K/mm3 (140-440) 02/25/19 04:21 Lymph % (Auto) 9.0 % (13.4-35.0) L 02/24/19 10:29 Haakon % (Auto) Heat Curer 02/25/19 04:21 Eos % (Auto) 0.1 % (0.0-4.3) 02/24/19 10:29 Baso % (Auto) 0.6 % (0.0-1.8) 02/24/19 10:29 Lymph # 1.2 K/mm3 (1.2-5.4) 02/24/19 10:29 Haakon # 1.9 K/mm3 (0.0-0.8) H 02/24/19 10:29 Eos # 0.0 K/mm3 (0.0-0.4) 02/24/19 10:29 Baso # 0.1 K/mm3 (0.0-0.1) 02/24/19 10:29 Add Manual Diff Complete 02/25/19 04:21 Total Counted 100 02/25/19 04:21 Seg Neutrophils % 75.9 % (40.0-70.0) H 02/24/19 10:29 Seg Neuts % (Manual) 76.0 % (40.0-70.0) H 02/25/19 04:21 6.0 % 02/25/19 04:21 6.0 % (13.4-35.0) L 02/25/19 04:21 Reactive Lymphs % (Man) 0 % 02/25/19 04:21 12.0 % (0.0-7.3) H 02/25/19 04:21 0 % (0.0-4.3) 02/25/19 04:21 0 % (0.0-1.8) 02/25/19 04:21 0 % 02/25/19 04:21 0 % 02/25/19 04:21 0 % 02/25/19 04:21 0 % 02/25/19 04:21 Nucleated RBC % Not Reportable 02/25/19 04:21 Seg Neutrophils # 10.0 K/mm3 (1.8-7.7) H 02/24/19 10:29 Seg Neutrophils # Man 8.4 K/mm3 (1.8-7.7) H 02/25/19 04:21 Band Neutrophils # 0.7 K/mm3 02/25/19 04:21 0.7 K/mm3 (1.2-5.4) L 02/25/19 04:21 Abs React Lymphs (Man) 0.0 K/mm3 02/25/19 04:21 1.3 K/mm3 (0.0-0.8) H 02/25/19 04:21 0.0 K/mm3 (0.0-0.4) 02/25/19 04:21 0.0 K/mm3 (0.0-0.1) 02/25/19 04:21 0.0 K/mm3 02/25/19 04:21 0.0 K/mm3 02/25/19 04:21 0.0 K/mm3 02/25/19 04:21 Blast Cells # 0.0 K/mm3 02/25/19 04:21 WBC Morphology Not Reportable 02/25/19 04:21 Hypersegmented Neuts Not Reportable 02/25/19 04:21 Hyposegmented Neuts Not Reportable 02/25/19 04:21 Hypogranular Neuts Not Reportable 02/25/19 04:21 Not Reportable 02/25/19 04:21 Not Reportable 02/25/19 04:21 Not Reportable 02/25/19 04:21 Not Reportable 02/25/19 04:21 Not Reportable 02/25/19 04:21 Not Reportable 02/25/19 04:21 Consistent w auto 02/25/19 04:21 Rare 02/25/19 04:21 Plt Clumps, EDTA Not Reportable 02/25/19 04:21 Not Reportable 02/25/19 04:21 Not Reportable 02/25/19 04:21 Not Reportable 02/25/19 04:21 Plt Morphology Comment Not Reportable 02/25/19 04:21 RBC Morphology Not Reportable 02/25/19 04:21 Dimorphic RBCs Not Reportable 02/25/19 04:21 Not Reportable 02/25/19 04:21 Not Reportable 02/25/19 04:21 Not Reportable 02/25/19 04:21 Few 02/25/19 04:21 Not Reportable 02/25/19 04:21 Few 02/25/19 04:21 Not Reportable 02/25/19 04:21 Not Reportable 02/25/19 04:21 Not Reportable 02/25/19 04:21 Not Reportable 02/25/19 04:21 Not Reportable 02/25/19 04:21 Not Reportable 02/25/19 04:21 Not Reportable 02/25/19 04:21 Not Reportable 02/25/19 04:21 Not Reportable 02/25/19 04:21 Not Reportable 02/25/19 04:21 Not Reportable 02/25/19 04:21 Not Reportable 02/25/19 04:21 Not Reportable 02/25/19 04:21 Acanthocytes (Spur) Not Reportable 02/25/19 04:21 Rouleaux Not Reportable 02/25/19 04:21 Not Reportable 02/25/19 04:21 Not Reportable 02/25/19 04:21 Not Reportable 02/25/19 04:21 Not Reportable 02/25/19 04:21 Hem Pathologist Commnt No 02/25/19 04:21 PT 15.6 Sec. (12.2-14.9) H 02/24/19 10:29 INR 1.27 (0.87-1.13) H 02/24/19 10:29 Sodium 129 mmol/L (137-145) L 02/27/19 03:59 Potassium 4.9 mmol/L (3.6-5.0) 02/27/19 03:59 Chloride 98.4 mmol/L (98-107) 02/27/19 03:59 Carbon Dioxide 18 mmol/L (22-30) L 02/27/19 03:59 18 mmol/L 02/27/19 03:59 BUN 19 mg/dL (9-20) 02/27/19 03:59 1.6 mg/dL (0.8-1.5) H 02/27/19 03:59 Estimated GFR 52 ml/min 02/27/19 03:59 12 % 02/27/19 03:59 Glucose 95 mg/dL (75-100) 02/27/19 03:59 POC Glucose 55 (70-105) L 02/25/19 16:02 5.2 % (4-6) 02/24/19 10:29 Lactic Acid 1.20 mmol/L (0.7-2.0) 02/24/19 10:29 Calcium 8.2 mg/dL (8.4-10.2) L 02/27/19 03:59 Phosphorus 2.40 mg/dL (2.5-4.5) L 02/27/19 03:59 Magnesium 2.10 mg/dL (1.7-2.3) 02/27/19 03:59 0.30 mg/dL (0.1-1.2) 02/25/19 04:21 AST 17 units/L (5-40) 02/25/19 04:21 ALT 8 units/L (7-56) 02/25/19 04:21 43 units/L (35-129) 02/25/19 04:21 44.0 umol/L (25-60) 02/24/19 10:29 0.083 ng/mL (0.00-0.029) H 02/24/19 10:29 6.8 g/dL (6.3-8.2) 02/25/19 04:21 2.0 g/dL (3.9-5) L 02/25/19 04:21 0.4 % 02/25/19 04:21 Triglycerides 145 mg/dL (2-149) 02/24/19 10:29 Cholesterol 139 mg/dL (50-199) 02/24/19 10:29 87 mg/dL (50-130) 02/24/19 10:29 20 mg/dL (40-59) L 02/24/19 10:29 6.95 % 02/24/19 10:29 [place] (Yellow) 02/24/19 14:15 Cloudy (Clear) 02/24/19 14:15 6.0 (5.0-7.0) 02/24/19 14:15 Ur Specific [place] 1.020 (1.003-1.030) 02/24/19 14:15 100 mg/dl mg/dL (Negative) 02/24/19 14:15 Neg mg/dL (Negative) 02/24/19 14:15 Tr mg/dL (Negative) 02/24/19 14:15 Mod (Negative) 02/24/19 14:15 Neg (Negative) 02/24/19 14:15 Neg (Negative) 02/24/19 14:15 4.0 mg/dL (<2.0) 02/24/19 14:15 Ur Leukocyte Esterase Sm (Negative) 02/24/19 14:15 23.0 /HPF (0.0-6.0) H 02/24/19 14:15 20.0 /HPF (0.0-6.0) 02/24/19 14:15 U Epithel Cells (Auto) < 1.0 /HPF (0-13.0) 02/24/19 14:15 1+ /HPF (Negative) 02/24/19 14:15 Few /HPF 02/24/19 14:15 92.1 mg/dL (0.1-20.0) H 02/25/19 Unknown 125 mmol/L 02/25/19 Unknown Salicylates < 0.3 mg/dL (2.8-20.0) L 02/24/19 10:29 Presumptive negative 02/24/19 14:15 Presumptive negative 02/24/19 14:15 Acetaminophen 5.1 ug/mL (10.0-30.0) L 02/24/19 10:29 Ur Barbiturates Screen Presumptive negative 02/24/19 14:15 Valproic Acid 72.9 ug/mL (50-100) 02/24/19 10:29 Ur Phencyclidine Scrn Presumptive negative 02/24/19 14:15 Ur Amphetamines Screen Presumptive negative 02/24/19 14:15 U Benzodiazepines Scrn Presumptive negative 02/24/19 14:15 Presumptive negative 02/24/19 14:15 U Marijuana (THC) Screen Presumptive negative 02/24/19 14:15 Disclamer 02/24/19 14:15 Plasma/Serum Alcohol < 0.01 % (0-0.07) 02/24/19 10:29 Active Medications - Current Medications Current Medications: Generic Name Dose Route Start Last Admin Trade Name Freq PRN Reason Stop Dose Admin Acetaminophen 650 mg 02/24/19 21:24 02/27/19 08:16 Tylenol PO 650 mg Q4H PRN Administration Pain MILD(1-3)/Fever >100.5/WINKLER Benzonatate 100 mg 02/26/19 18:00 02/27/19 06:56 Tessalon Perles PO Not Given Q8HR KANU Divalproex Sodium 125 mg 02/25/19 10:00 02/27/19 09:[address] PO 125 mg BID KANU Administration Docusate Sodium 100 mg 02/25/19 10:00 02/27/19 09:11 Colace PO 100 mg BID KANU Administration Guaifenesin 10 ml 02/26/19 16:58 02/27/19 08:17 Guaifenesin Dm Syrup PO 10 ml Q4H PRN Administration Cough Hydromorphone HCl 0.5 mg 02/24/19 21:24 Dilaudid IV Q3H PRN Pain , Severe (7-10) Ceftriaxone Sodium 1 gm in 50 mls @ 100 mls/hr 02/25/19 22:00 02/26/19 22:21 Rocephin/Ns 1 Gm/50 Ml IV 100 mls/hr Q24H KANU Administration Protocol Dextrose/Sodium Chloride 1,000 mls @ 100 mls/hr 02/26/19 12:00 02/26/19 22:34 D5ns IV 100 mls/hr DIRECT KANU Administration Sodium Chloride 1,000 mls @ 75 mls/hr 02/27/19 11:00 02/27/19 11:00 Nacl 0.9% 1000 Ml IV 75 mls/hr DIRECT KANU Administration Levetiracetam 1,000 mg 02/25/19 10:00 02/27/19 09:11 Keppra PO 1,000 mg Q12HR KANU Administration Ondansetron HCl 4 mg 02/24/19 21:24 02/26/19 22:21 Zofran IV 4 mg Q8H PRN Administration Nausea And Vomiting Ondansetron HCl 4 mg 02/25/19 06:23 Zofran Odt PO Q6H PRN Nausea Pantoprazole Sodium 40 mg 02/25/19 10:00 02/27/19 09:11 Protonix PO 40 mg QDAY KANU Administration Sodium Bicarbonate 650 mg 02/26/19 20:00 02/27/19 08:16 Sodium Bicarbonate PO 650 mg TID KANU Administration Sodium Chloride 10 ml 02/24/19 22:00 02/27/19 09:11 Sodium Chloride Flush Syringe 10 Ml IV 10 ml BID KANU Administration Sodium Chloride 10 ml 02/24/19 21:24 Sodium Chloride Flush Syringe 10 Ml IV PRN PRN LINE FLUSH
--- NOTE | 2019-02-27 13:19 | Progress Note ---
Assessment and Plan 1. Acute kidney injury: Vasomotor REJI superimposed on CKD stage 3 in the setting of volume depletion and UTI. Continue IV fluids. Renal function is improving. Monitor renal function. Avoid nephrotoxic agents. Meds dosage based on GFR. 2. FEN: Hyponatremia, monitor. Continue IV fluids. Continue Sodium bicarbonate. Monitor lytes. 3. R sided nephrolithiasis with mild hydro: Followed by Urology. S/p cysto, retrograde pyelogram and stent. 4. UTI: Ceftriaxone. 5. Normochromic anemia: POA. 6. Thoracic compression fracture. 7. Cerebral palsy. Subjective Date of service: 02/27/19 Interval history: Patient was seen and examined at the bedside. Objective - Vital Signs Vital signs: Vital Signs - 12hr 02/27/19 02/27/19 02/27/19 02:00 07:45 08:16 Temperature 98.4 F 103.0 F H Pulse Rate 86 109 H Pulse Rate [ From Monitor] Respiratory 20 20 20 Rate Blood Pressure 102/63 145/61 O2 Sat by Pulse 98 92 Oximetry 02/27/19 02/27/19 02/27/19 09:35 09:44 10:00 Temperature 98.2 F Pulse Rate 103 H Pulse Rate [ 103 H From Monitor] Respiratory 20 Rate Blood Pressure O2 Sat by Pulse 92 Oximetry 02/27/19 02/27/19 10:25 11:00 Temperature 99.2 F 99.2 F Pulse Rate 101 H 101 H Pulse Rate [ From Monitor] Respiratory 22 22 Rate Blood Pressure 96/38 96/38 O2 Sat by Pulse 96 96 Oximetry - General Appearance General appearance: well-developed, well-nourished, appears stated age, other (no distress) EENT: ATNC, PERRL Neck: supple Respiratory: Present: Clear to Ascultation Cardiology: regular, S1S2, no murmurs Gastrointestinal: normoactive bowel sounds, no tenderness, no distended Integumentary: no rash, warm and dry Neurologic: aphasia, other (able to move extremities) Musculoskeletal: other (no edema) - Lab 02/25/19 04:21 02/27/19 03:59 Most recent lab results Calcium 8.2 mg/dL (8.4-10.2) L 02/27/19 03:59 Phosphorus 2.40 mg/dL (2.5-4.5) L 02/27/19 03:59 Magnesium 2.10 mg/dL (1.7-2.3) 02/27/19 03:59 92.1 mg/dL (0.1-20.0) H 02/25/19 Unknown 125 mmol/L 02/25/19 Unknown Medications & Allergies - Medications Allergies/Adverse Reactions: Allergies No Known Allergies Allergy (Verified 05/02/13 21:38) Home Medications: Home Medications Medication Instructions Recorded Confirmed Last Taken Type Pantoprazole [Protonix TAB] 40 mg PO QDAY 05/02/13 02/25/[address] [Depakote Dr] 125 mg PO BID #60 tablet 05/09/13 02/25/19 Unknown Rx Docusate Sodium [Colace CAP] 100 mg PO BID #60 capsule 05/09/13 02/25/19 Unknown Rx Ondansetron [Zofran Odt] 4 mg PO Q6HR PRN #12 tab.rapdis 02/02/18 02/25/19 Unknown Rx cephALEXin [Keflex] 500 mg PO Q12HR #10 cap 11/21/18 02/25/19 Unknown Rx levETIRAcetam [Keppra TAB] 1,000 mg PO Q12HR 30 Days #120 11/21/18 02/25/19 Unknown Rx tablet Active Medications: Generic Name Dose Route Start Last Admin Trade Name Freq PRN Reason Stop Dose Admin Acetaminophen 650 mg 02/24/19 21:24 02/27/19 08:16 Tylenol PO 650 mg Q4H PRN Administration Pain MILD(1-3)/Fever >100.5/WINKLER Benzonatate 100 mg 02/26/19 18:00 02/27/19 06:56 Tessalon Perles PO Not Given Q8HR KANU Divalproex Sodium 125 mg 02/25/19 10:00 02/27/19 09:[address] PO 125 mg BID KANU Administration Docusate Sodium 100 mg 02/25/19 10:00 02/27/19 09:11 Colace PO 100 mg BID KANU Administration Guaifenesin 10 ml 02/26/19 16:58 02/27/19 08:17 Guaifenesin Dm Syrup PO 10 ml Q4H PRN Administration Cough Hydromorphone HCl 0.5 mg 02/24/19 21:24 Dilaudid IV Q3H PRN Pain , Severe (7-10) Ceftriaxone Sodium 1 gm in 50 mls @ 100 mls/hr 02/25/19 22:00 02/26/19 22:21 Rocephin/Ns 1 Gm/50 Ml IV 100 mls/hr Q24H KANU Administration Protocol Dextrose/Sodium Chloride 1,000 mls @ 100 mls/hr 02/26/19 12:00 02/26/19 22:34 D5ns IV 100 mls/hr DIRECT KANU Administration Sodium Chloride 1,000 mls @ 75 mls/hr 02/27/19 11:00 02/27/19 11:00 Nacl 0.9% 1000 Ml IV 75 mls/hr DIRECT KANU Administration Levetiracetam 1,000 mg 02/25/19 10:00 02/27/19 09:11 Keppra PO 1,000 mg Q12HR KANU Administration Ondansetron HCl 4 mg 02/24/19 21:24 02/26/19 22:21 Zofran IV 4 mg Q8H PRN Administration Nausea And Vomiting Ondansetron HCl 4 mg 02/25/19 06:23 Zofran Odt PO Q6H PRN Nausea Pantoprazole Sodium 40 mg 02/25/19 10:00 02/27/19 09:11 Protonix PO 40 mg QDAY KANU Administration Sodium Bicarbonate 650 mg 02/26/19 20:00 02/27/19 08:16 Sodium Bicarbonate PO 650 mg TID KANU Administration Sodium Chloride 10 ml 02/24/19 22:00 02/27/19 09:11 Sodium Chloride Flush Syringe 10 Ml IV 10 ml BID KNAU Administration Sodium Chloride 10 ml 02/24/19 21:24 Sodium Chloride Flush Syringe 10 Ml IV PRN PRN LINE FLUSH
[2019-02-27] MEDS ORDERED: OMNIPAQUE 300 MG/50 ML (CATH LAB) IV ONE (17:37)
[2019-02-27] MEDS ORDERED: XYLOCAINE 2% UROJET ONE (17:50)
--- NOTE | 2019-02-27 18:16 | Post Operative Note ---
Date of procedure: 02/27/19 Pre-op diagnosis: l upj stone Post-op diagnosis: same Findings: kinked and severe obst Procedure: cysto rpg stent Anesthesia: GETA Surgeon: KAYLA OSWALD Estimated blood loss: minimal Pathology: none Condition: stable Disposition: PACU
--- NOTE | 2019-02-27 19:00 | Operative Report ---
INDICATIONS: This is a 68-year-old gentleman with multiple medical problems who presents with aphasia and inability to communicate and has a left UPJ stone with hydronephrosis. He now presents for treatment. He could not give complaints, but it looks like he has been in pain and had difficulty with his appetite. DESCRIPTION OF PROCEDURE: The patient was brought to the operating room and placed on the operating table. Following induction of anesthesia, he was placed in lithotomy position, prepped and draped in usual sterile fashion. Cystourethroscopy showed a moderately enlarged prostate with a 3.5 cm prostatic urethra. There was no blood from either orifice. Retrograde showed severe obstruction at the UPJ. There was another stone in the mid pole as well. We tried to get a wire up and there was kinking of the lower ureter. With an open-ended catheter, we were able to get past that. Once we got to the UPJ, the wire kept coiling back on itself. We tried multiple wires and we even tried the lubrication with Urojet diluted with water and with contrast. Eventually, a Glidewire coiled past the stone and we were able to place an open-ended. We were able to dilate that area and then placed a 4.8 double J in the upper pole. There was purulent discharge. He will be given more antibiotics in recovery room. At the other point, we were about to stop. We are going to place a percutaneous nephrostomy, which would have been quite difficult and more life threatening. The patient tolerated the procedure well. A double J coiled in the kidney and bladder. Moraes catheter was left, brought to recovery in stable condition. JOB# [id number] [place]
--- NOTE | 2019-02-27 19:44 | Fluoroscopy Report ---
INTRAOPERATIVE FLUOROSCOPY: RETROGRADE UROGRAPHY INDICATION / CLINICAL INFORMATION: LT KIDNEY STONE. TECHNIQUE: Intraoperative spot images were obtained during the procedure. FINDINGS: Retrograde injection of the left ureter demonstrates filling defect in the proximal ureter near the U PJ. Left collecting system beyond this point is moderately dilated. A wire was advanced into the left renal collecting system. A left ureteral stent was left in place in expected position. Fluoroscopy Time: 11 minutes 10 seconds. Fluoroscopy Images: 17. Signer Name: Radha Cevallos MD Signed: 02/27/2019 7:39 PM Workstation Name: [id number]
--- NOTE | 2019-02-27 20:07 | Post Anesthesia Evaluation ---
- Post Anesthesia Evaluation Patient Participated: Yes Airway Patent: Yes Stable Respiratory Function: Yes Nausea/Vomiting: No Temp > 96.8F: Yes Pain Manageable: Yes Adequeate Hydration: Yes Anesthesia Complications: No Block Receding Appropriately: Not Applicable Patient on Ventilator: No
[2019-02-27] MEDS: ROCEPHIN/NS 1 GM/50 ML 1 GM/50 ML BAG IV SCH (22:35)
[2019-02-28] MEDS: SODIUM CHLORIDE FLUSH SYRINGE 10 ML IV SCH ×3 (00:15→09:43)
[2019-02-28 05:54] LABS: Calcium 8.1 mg/dL (8.4-10.2)
[2019-02-28] MEDS: TESSALON PERLES PO SCH ×3 (07:08→22:08)
[2019-02-28] MEDS: SODIUM BICARBONATE PO SCH ×3 (09:09→22:08)
--- NOTE | 2019-02-28 09:23 | Progress Note ---
Assessment and Plan 1. Acute kidney injury: Vasomotor REJI superimposed on CKD stage 3 in the setting of volume depletion and UTI. Continue IV fluids. Renal function is better. Monitor renal function. Avoid nephrotoxic agents. Meds dosage based on GFR. 2. FEN: Hyponatremia, monitor. Continue IV fluids. Continue Sodium bicarbonate. Monitor lytes. 3. R sided nephrolithiasis with mild hydro: Followed by Urology. S/p cysto, retrograde pyelogram and stent. 4. UTI: Ceftriaxone. 5. Normochromic anemia: POA. 6. Thoracic compression fracture. 7. Cerebral palsy. Subjective Date of service: 02/28/19 Interval history: Patient was seen and examined at the bedside. Sister at the bedside. Objective - Vital Signs Vital signs: Vital Signs - 12hr 02/28/19 02/28/19 01:51 07:24 Temperature 100.1 F H 98.8 F Pulse Rate 82 84 Respiratory 18 18 Rate Blood Pressure 95/71 100/48 O2 Sat by Pulse 97 95 Oximetry - General Appearance General appearance: well-developed, well-nourished, appears stated age, other (no distress) EENT: ATNC, PERRL, hearing intact Neck: supple Respiratory: Present: Clear to Ascultation Cardiology: regular, S1S2, no murmurs Gastrointestinal: normoactive bowel sounds, no tenderness, no distended Integumentary: no rash, warm and dry Neurologic: aphasia, other (able to move extremities) Musculoskeletal: other (no edema) - Lab 02/25/19 04:21 02/28/19 03:57 Most recent lab results Calcium 8.1 mg/dL (8.4-10.2) L 02/28/19 03:57 Phosphorus 2.90 mg/dL (2.5-4.5) D 02/28/19 03:57 Magnesium 2.10 mg/dL (1.7-2.3) 02/27/19 03:59 92.1 mg/dL (0.1-20.0) H 02/25/19 Unknown 125 mmol/L 02/25/19 Unknown Medications & Allergies - Medications Allergies/Adverse Reactions: Allergies No Known Allergies Allergy (Verified 05/02/13 21:38) Home Medications: Home Medications Medication Instructions Recorded Confirmed Last Taken Type Pantoprazole [Protonix TAB] 40 mg PO QDAY 05/02/13 02/25/[address] [Depakote Dr] 125 mg PO BID #60 tablet 05/09/13 02/25/19 Unknown Rx Docusate Sodium [Colace CAP] 100 mg PO BID #60 capsule 05/09/13 02/25/19 Unknown Rx Ondansetron [Zofran Odt] 4 mg PO Q6HR PRN #12 tab.rapdis 02/02/18 02/25/19 Unknown Rx cephALEXin [Keflex] 500 mg PO Q12HR #10 cap 11/21/18 02/25/19 Unknown Rx levETIRAcetam [Keppra TAB] 1,000 mg PO Q12HR 30 Days #120 11/21/18 02/25/19 Unknown Rx tablet Active Medications: Generic Name Dose Route Start Last Admin Trade Name Freq PRN Reason Stop Dose Admin Acetaminophen 650 mg 02/24/19 21:24 02/27/19 08:16 Tylenol PO 650 mg Q4H PRN Administration Pain MILD(1-3)/Fever >100.5/[place]ER Benzonatate 100 mg 02/26/19 18:00 02/28/19 07:08 Tessalon Perles PO 100 mg Q8HR KANU Administration Divalproex Sodium 125 mg 02/25/19 10:00 02/27/19 22:[address] PO 125 mg BID KANU Administration Docusate Sodium 100 mg 02/25/19 10:00 02/27/19 22:37 Colace PO 100 mg BID KANU Administration Guaifenesin 10 ml 02/26/19 16:58 02/27/19 20:38 Guaifenesin Dm Syrup PO 10 ml Q4H PRN Administration Cough Hydromorphone HCl 0.5 mg 02/24/19 21:24 Dilaudid IV Q3H PRN Pain , Severe (7-10) Ceftriaxone Sodium 1 gm in 50 mls @ 100 mls/hr 02/25/19 22:00 02/27/19 22:35 Rocephin/Ns 1 Gm/50 Ml IV 100 mls/hr Q24H KANU Administration Protocol Dextrose/Sodium Chloride 1,000 mls @ 100 mls/hr 02/26/19 12:00 02/26/19 22:34 D5ns IV 100 mls/hr DIRECT KANU Administration Sodium Chloride 1,000 mls @ 75 mls/hr 02/27/19 11:00 02/27/19 22:41 Nacl 0.9% 1000 Ml IV 75 mls/hr DIRECT KANU Administration Levetiracetam 1,000 mg 02/25/19 10:00 02/27/19 22:36 Keppra PO 1,000 mg Q12HR KANU Administration Ondansetron HCl 4 mg 02/24/19 21:24 02/26/19 22:21 Zofran IV 4 mg Q8H PRN Administration Nausea And Vomiting Ondansetron HCl 4 mg 02/25/19 06:23 Zofran Odt PO Q6H PRN Nausea Pantoprazole Sodium 40 mg 02/25/19 10:00 02/27/19 09:11 Protonix PO 40 mg QDAY KANU Administration Sodium Bicarbonate 650 mg 02/26/19 20:00 02/27/19 22:40 Sodium Bicarbonate PO 650 mg TID KANU Administration Sodium Chloride 10 ml 02/24/19 22:00 02/28/19 00:15 Sodium Chloride Flush Syringe 10 Ml IV 10 ml BID KANU Administration Sodium Chloride 10 ml 02/24/19 21:24 Sodium Chloride Flush Syringe 10 Ml IV PRN PRN LINE FLUSH
[2019-02-28] MEDS: PROTONIX PO SCH (09:43)
[2019-02-28] MEDS: KEPPRA PO SCH ×2 (09:43→22:07)
[2019-02-28] MEDS: COLACE PO SCH ×2 (10:29→22:08)
[2019-02-28] MEDS: NACL 0.9% 1000 ML 1,000 ML IV SCH ×2 (10:48→23:37)
[2019-02-28] MEDS: DILAUDID IV PRN (13:56)
--- NOTE | 2019-02-28 14:10 | Progress Note ---
Assessment and Plan more alert improved f/u second stage ureteroscopy Subjective Date of service: 02/28/19 Principal diagnosis: urosepsis Objective - Constitutional Vitals: Vital Signs - 12hr 02/28/19 02/28/19 07:24 09:00 Temperature 98.8 F Pulse Rate 84 Respiratory 18 Rate Blood Pressure 100/48 O2 Sat by Pulse 95 94 Oximetry General appearance: Present: no acute distress - Respiratory Respiratory effort: normal Extremities: no ischemia - Gastrointestinal General gastrointestinal: Present: soft, non-tender - Labs CBC & Chem 7: 02/25/19 04:21 02/28/19 03:57 Labs: Abnormal lab results 02/28/19 Range/Units 03:57 Sodium 131 L (137-145) mmol/L Carbon Dioxide 21 L (22-30) mmol/L Creatinine 1.7 H (0.8-1.5) mg/dL Calcium 8.1 L (8.4-10.2) mg/dL Medications & Allergies - Medications Allergies/Adverse Reactions: Allergies No Known Allergies Allergy (Verified 05/02/13 21:38) Home Medications: Home Medications Medication Instructions Recorded Confirmed Last Taken Type Pantoprazole [Protonix TAB] 40 mg PO QDAY 05/02/13 02/25/[address] [Depakote Dr] 125 mg PO BID #60 tablet 05/09/13 02/25/19 Unknown Rx Docusate Sodium [Colace CAP] 100 mg PO BID #60 capsule 05/09/13 02/25/19 Unknown Rx Ondansetron [Zofran Odt] 4 mg PO Q6HR PRN #12 tab.rapdis 02/02/18 02/25/19 Unknown Rx cephALEXin [Keflex] 500 mg PO Q12HR #10 cap 11/21/18 02/25/19 Unknown Rx levETIRAcetam [Keppra TAB] 1,000 mg PO Q12HR 30 Days #120 11/21/18 02/25/19 Unknown Rx tablet Active Medications: Generic Name Dose Route Start Last Admin Trade Name Freq PRN Reason Stop Dose Admin Acetaminophen 650 mg 02/24/19 21:24 02/27/19 08:16 Tylenol PO 650 mg Q4H PRN Administration Pain MILD(1-3)/Fever >100.5/WINKLER Benzonatate 100 mg 02/26/19 18:00 02/28/19 13:55 Tessalon Perles PO 100 mg Q8HR KANU Administration Divalproex Sodium 125 mg 02/25/19 10:00 02/28/19 09:[address] PO 125 mg BID KANU Administration Docusate Sodium 100 mg 02/25/19 10:00 02/28/19 10:29 Colace PO Not Given BID KANU Guaifenesin 10 ml 02/26/19 16:58 02/28/19 10:50 Guaifenesin Dm Syrup PO 10 ml Q4H PRN Administration Cough Hydromorphone HCl 0.5 mg 02/24/19 21:24 02/28/19 13:56 Dilaudid IV 0.5 mg Q3H PRN Administration Pain , Severe (7-10) Ceftriaxone Sodium 1 gm in 50 mls @ 100 mls/hr 02/25/19 22:00 02/27/19 22:35 Rocephin/Ns 1 Gm/50 Ml IV 100 mls/hr Q24H KANU Administration Protocol Dextrose/Sodium Chloride 1,000 mls @ 100 mls/hr 02/26/19 12:00 02/26/19 22:34 D5ns IV 100 mls/hr DIRECT KANU Administration Sodium Chloride 1,000 mls @ 75 mls/hr 02/27/19 11:00 02/28/19 10:48 Nacl 0.9% 1000 Ml IV 75 mls/hr DIRECT KANU Administration Levetiracetam 1,000 mg 02/25/19 10:00 02/28/19 09:43 Keppra PO 1,000 mg Q12HR KANU Administration Ondansetron HCl 4 mg 02/24/19 21:24 02/26/19 22:21 Zofran IV 4 mg Q8H PRN Administration Nausea And Vomiting Ondansetron HCl 4 mg 02/25/19 06:23 Zofran Odt PO Q6H PRN Nausea Pantoprazole Sodium 40 mg 02/25/19 10:00 02/28/19 09:43 Protonix PO 40 mg QDAY KANU Administration Sodium Bicarbonate 650 mg 02/26/19 20:00 02/28/19 13:55 Sodium Bicarbonate PO 650 mg TID KANU Administration Sodium Chloride 10 ml 02/24/19 22:00 02/28/19 09:43 Sodium Chloride Flush Syringe 10 Ml IV 10 ml BID KANU Administration Sodium Chloride 10 ml 02/24/19 21:24 Sodium Chloride Flush Syringe 10 Ml IV PRN PRN LINE FLUSH
--- NOTE | 2019-02-28 15:55 | Progress Note ---
Assessment and Plan - Patient Problems (1) Sepsis Current Visit: Yes Status: Acute Qualifiers: Sepsis acute organ dysfunction status: unspecified Plan to address problem: Sec to UTI IV Rocephin for now (2) Acute encephalopathy Current Visit: No Status: Acute Plan to address problem: Sec to sepsis IV fluids and IV Rocephin (3) Cerebral palsy Current Visit: No Status: Chronic Qualifiers: Cerebral palsy type: unspecified type Qualified Code(s): G80.9 - Cerebral palsy, unspecified Plan to address problem: Supportive care (4) REJI (acute kidney injury) Current Visit: Yes Status: Acute Plan to address problem: IV fluids for now ATN (5) UTI (urinary tract infection) Current Visit: Yes Status: Acute Qualifiers: Urinary tract infection type: acute cystitis Plan to address problem: IV Rocephin for now pending cultures (6) Seizure disorder Current Visit: Yes Status: Chronic Plan to address problem: Cont Keppra (7) Hyponatremia Current Visit: Yes Status: Acute Plan to address problem: IV NS for now Check osmolality (8) Thoracic compression fracture Current Visit: Yes Status: Chronic Qualifiers: Thoracic vertebra fracture level: unspecified thoracic vertebra Plan to address problem: Ortho consult Probable conservative treatment (9) Elevated troponin Current Visit: Yes Status: Chronic Plan to address problem: Sec to REJI (10) DVT prophylaxis Current Visit: Yes Status: Acute Plan to address problem: On Heparin andd GI prophylaxis Subjective Date of service: 02/28/19 Principal diagnosis: urosepsis Interval history: 68 yo male with hx of cerebral palsy, seizure, nrecurrent UTIs , sepsis, intellectual disability, PVD, cerebellar ataxia, GERD, dysphagia presents with decreased responsiveness and fever. Could not swallow according to sister's report. Patient is nonverbal at baseline. Resident at [facility]. Unable to obtain hx from patient. History obtained from sister and EMS. DNR status Reviewed recent discharge summary and SNF documentation. He was treated for severe sepsis, UTI, encephalopathy, status epilepticus. Objective - Constitutional Vitals: Vital Signs - 12hr 02/28/19 02/28/19 07:24 09:00 Temperature 98.8 F Pulse Rate 84 Respiratory 18 Rate Blood Pressure 100/48 O2 Sat by Pulse 95 94 Oximetry General appearance: Present: no acute distress, well-nourished - EENT Eyes: PERRL, EOM intact ENT: hearing intact, clear oral mucosa Ears: bilateral: normal - Neck Neck: supple, normal ROM - Respiratory Respiratory effort: normal Respiratory: bilateral: CTA - Breasts Breasts: normal - Cardiovascular Rhythm: regular Heart Sounds: Present: S1 & S2. Absent: gallop, rub Extremities: pulses intact, No edema, normal color, Full ROM - Gastrointestinal General gastrointestinal: Present: soft, non-tender, non-distended, normal bowel sounds - Genitourinary Male genitourinary: normal - Integumentary Integumentary: clear, warm, dry - Musculoskeletal Musculoskeletal: 1, strength equal bilaterally - Neurologic Neurologic: moves all extremities - Psychiatric Psychiatric: memory intact, appropriate mood/affect, intact judgment & insight - Labs CBC & Chem 7: 03/02/19 05:34 03/02/19 05:34 Labs: Abnormal lab results 02/28/19 Range/Units 03:57 Sodium 131 L (137-145) mmol/L Carbon Dioxide 21 L (22-30) mmol/L Creatinine 1.7 H (0.8-1.5) mg/dL Calcium 8.1 L (8.4-10.2) mg/dL
[2019-02-28] MEDS: ROCEPHIN/NS 1 GM/50 ML 1 GM/50 ML BAG IV SCH (23:34)
[2019-03-01 06:19] LABS: Calcium 8.1 mg/dL (8.4-10.2)
[2019-03-01] MEDS: TESSALON PERLES PO SCH ×3 (06:45→21:26)
[2019-03-01] MEDS: PROTONIX PO SCH (09:33)
[2019-03-01] MEDS: KEPPRA PO SCH ×2 (09:33→21:26)
[2019-03-01] MEDS: SODIUM BICARBONATE PO SCH ×3 (09:33→21:26)
[2019-03-01] MEDS: COLACE PO SCH ×2 (09:33→21:27)
[2019-03-01] MEDS: SODIUM CHLORIDE FLUSH SYRINGE 10 ML IV SCH (09:33)
--- NOTE | 2019-03-01 12:49 | Progress Note ---
Assessment and Plan 1. Acute kidney injury: Vasomotor REJI superimposed on CKD stage 3 in the setting of volume depletion and UTI. Continue IV fluids. Renal function is better. Monitor renal function. Avoid nephrotoxic agents. Meds dosage based on GFR. 2. FEN: Hyponatremia, monitor. Increase Sodium bicarbonate. Monitor lytes. 3. R sided nephrolithiasis with mild hydro: Followed by Urology. S/p cysto, retrograde pyelogram and stent. 4. UTI: Ceftriaxone. 5. Normochromic anemia: POA. 6. Thoracic compression fracture. 7. Cerebral palsy. Care of plan discussed and all questions answered. Subjective Date of service: 03/01/19 Principal diagnosis: urosepsis Interval history: Patient was seen and examined at the bedside. Sister at the bedside. Objective - Vital Signs Vital signs: Vital Signs - 12hr 03/01/19 03/01/19 03/01/19 01:58 02:06 02:07 Temperature 98.5 F Pulse Rate 85 64 69 Respiratory 20 Rate Blood Pressure 145/95 O2 Sat by Pulse 95 59 L 94 Oximetry 03/01/19 03/01/19 07:35 10:00 Temperature 98.4 F Pulse Rate 84 84 Respiratory 20 Rate Blood Pressure 118/67 O2 Sat by Pulse 97 Oximetry - General Appearance General appearance: well-developed, well-nourished, appears stated age, other (no distress) EENT: ATNC, PERRL Neck: supple Respiratory: Present: Clear to Ascultation Cardiology: regular, S1S2, no murmurs Gastrointestinal: normoactive bowel sounds, no tenderness, no distended, other (Moraes catheter) Integumentary: no rash, warm and dry Neurologic: aphasia, other (able to move extremities) Musculoskeletal: other (no edema) - Lab 02/25/19 04:21 03/01/19 05:11 Most recent lab results Calcium 8.1 mg/dL (8.4-10.2) L 03/01/19 05:11 Phosphorus 2.90 mg/dL (2.5-4.5) D 02/28/19 03:57 Magnesium 2.10 mg/dL (1.7-2.3) 02/27/19 03:59 92.1 mg/dL (0.1-20.0) H 02/25/19 Unknown 125 mmol/L 02/25/19 Unknown Medications & Allergies - Medications Allergies/Adverse Reactions: Allergies No Known Allergies Allergy (Verified 05/02/13 21:38) Home Medications: Home Medications Medication Instructions Recorded Confirmed Last Taken Type Pantoprazole [Protonix TAB] 40 mg PO QDAY 05/02/13 02/25/[address] [Depakote Dr] 125 mg PO BID #60 tablet 05/09/13 02/25/19 Unknown Rx Docusate Sodium [Colace CAP] 100 mg PO BID #60 capsule 05/09/13 02/25/19 Unknown Rx Ondansetron [Zofran Odt] 4 mg PO Q6HR PRN #12 tab.rapdis 02/02/18 02/25/19 Unknown Rx cephALEXin [Keflex] 500 mg PO Q12HR #10 cap 11/21/18 02/25/19 Unknown Rx levETIRAcetam [Keppra TAB] 1,000 mg PO Q12HR 30 Days #120 11/21/18 02/25/19 Unknown Rx tablet Active Medications: Generic Name Dose Route Start Last Admin Trade Name Freq PRN Reason Stop Dose Admin Acetaminophen 650 mg 02/24/19 21:24 02/27/19 08:16 Tylenol PO 650 mg Q4H PRN Administration Pain MILD(1-3)/Fever >100.5/WINKLER Benzonatate 100 mg 02/26/19 18:00 03/01/19 06:45 Tessalon Perles PO 100 mg Q8HR KANU Administration Divalproex Sodium 125 mg 02/25/19 10:00 03/01/19 09:[address] PO 125 mg BID KANU Administration Docusate Sodium 100 mg 02/25/19 10:00 03/01/19 09:33 Colace PO 100 mg BID KANU Administration Guaifenesin 10 ml 02/26/19 16:58 03/01/19 09:38 Guaifenesin Dm Syrup PO 10 ml Q4H PRN Administration Cough Hydromorphone HCl 0.5 mg 02/24/19 21:24 02/28/19 13:56 Dilaudid IV 0.5 mg Q3H PRN Administration Pain , Severe (7-10) Ceftriaxone Sodium 1 gm in 50 mls @ 100 mls/hr 02/25/19 22:00 02/28/19 23:34 Rocephin/Ns 1 Gm/50 Ml IV 100 mls/hr Q24H KANU Administration Protocol Dextrose/Sodium Chloride 1,000 mls @ 100 mls/hr 02/26/19 12:00 02/26/19 22:34 D5ns IV 100 mls/hr DIRECT KANU Administration Sodium Chloride 1,000 mls @ 75 mls/hr 02/27/19 11:00 02/28/19 23:37 Nacl 0.9% 1000 Ml IV 75 mls/hr DIRECT KANU Administration Levetiracetam 1,000 mg 02/25/19 10:00 03/01/19 09:33 Keppra PO 1,000 mg Q12HR KANU Administration Ondansetron HCl 4 mg 02/24/19 21:24 02/26/19 22:21 Zofran IV 4 mg Q8H PRN Administration Nausea And Vomiting Ondansetron HCl 4 mg 02/25/19 06:23 Zofran Odt PO Q6H PRN Nausea Pantoprazole Sodium 40 mg 02/25/19 10:00 03/01/19 09:33 Protonix PO 40 mg QDAY KANU Administration Sodium Bicarbonate 650 mg 02/26/19 20:00 03/01/19 09:33 Sodium Bicarbonate PO 650 mg TID KANU Administration Sodium Chloride 10 ml 02/24/19 22:00 03/01/19 09:33 Sodium Chloride Flush Syringe 10 Ml IV 10 ml BID KANU Administration Sodium Chloride 10 ml 02/24/19 21:24 Sodium Chloride Flush Syringe 10 Ml IV PRN PRN LINE FLUSH
[2019-03-01] MEDS: NACL 0.9% 1000 ML 1,000 ML IV SCH (13:29)
[2019-03-01] MEDS ORDERED: CEPHULAC PO PRN (15:22)
--- NOTE | 2019-03-01 15:31 | Progress Note ---
Assessment and Plan - Patient Problems (1) Sepsis Current Visit: Yes Status: Acute Qualifiers: Sepsis acute organ dysfunction status: unspecified Plan to address problem: Sec to UTI IV Rocephin for now (2) Acute encephalopathy Current Visit: No Status: Acute Plan to address problem: Sec to sepsis IV fluids and IV Rocephin (3) Cerebral palsy Current Visit: No Status: Chronic Qualifiers: Cerebral palsy type: unspecified type Qualified Code(s): G80.9 - Cerebral palsy, unspecified Plan to address problem: Supportive care (4) REJI (acute kidney injury) Current Visit: Yes Status: Acute Plan to address problem: IV fluids for now ATN (5) UTI (urinary tract infection) Current Visit: Yes Status: Acute Qualifiers: Urinary tract infection type: acute cystitis Plan to address problem: IV Rocephin for now pending cultures (6) Seizure disorder Current Visit: Yes Status: Chronic Plan to address problem: Cont Keppra (7) Hyponatremia Current Visit: Yes Status: Acute Plan to address problem: IV NS for now Check osmolality (8) Thoracic compression fracture Current Visit: Yes Status: Chronic Qualifiers: Thoracic vertebra fracture level: unspecified thoracic vertebra Plan to address problem: Ortho consult Probable conservative treatment (9) Elevated troponin Current Visit: Yes Status: Chronic Plan to address problem: Sec to REJI (10) DVT prophylaxis Current Visit: Yes Status: Acute Plan to address problem: On Heparin andd GI prophylaxis Subjective Date of service: 03/01/19 Principal diagnosis: urosepsis Interval history: 68 yo male with hx of cerebral palsy, seizure, nrecurrent UTIs , sepsis, intellectual disability, PVD, cerebellar ataxia, GERD, dysphagia presents with decreased responsiveness and fever. Could not swallow according to sister's report. Patient is nonverbal at baseline. Resident at [facility]. Unable to obtain hx from patient. History obtained from sister and EMS. DNR status Reviewed recent discharge summary and SNF documentation. He was treated for severe sepsis, UTI, encephalopathy, status epilepticus. Objective - Constitutional Vitals: Vital Signs - 12hr 03/01/19 03/01/19 03/01/19 07:35 10:00 13:51 Temperature 98.4 F 97.7 F Pulse Rate 84 84 88 Respiratory 20 20 Rate Blood Pressure 118/67 122/70 O2 Sat by Pulse 97 98 Oximetry General appearance: Present: no acute distress, well-nourished - EENT Eyes: PERRL, EOM intact ENT: hearing intact, clear oral mucosa Ears: bilateral: normal - Neck Neck: supple, normal ROM - Respiratory Respiratory effort: normal Respiratory: bilateral: CTA - Breasts Breasts: normal - Cardiovascular Rhythm: regular Heart Sounds: Present: S1 & S2. Absent: gallop, rub Extremities: pulses intact, No edema, normal color, Full ROM - Gastrointestinal General gastrointestinal: Present: soft, non-tender, non-distended, normal bowel sounds - Genitourinary Male genitourinary: normal - Integumentary Integumentary: clear, warm, dry - Musculoskeletal Musculoskeletal: 1, strength equal bilaterally - Neurologic Neurologic: moves all extremities - Psychiatric Psychiatric: memory intact, appropriate mood/affect, intact judgment & insight - Labs CBC & Chem 7: 03/02/19 05:34 03/02/19 05:34 Labs: Abnormal lab results 03/01/19 Range/Units 05:11 Sodium 126 L (137-145) mmol/L Chloride 93.7 L (98-107) mmol/L Calcium 8.1 L (8.4-10.2) mg/dL
[2019-03-01] MEDS: ROCEPHIN/NS 1 GM/50 ML 1 GM/50 ML BAG IV SCH (21:27)
[2019-03-02 05:49] LABS: Basophils # (Auto) 0.1 K/mm3 (0.0-0.1); Basophils % (Auto) 0.8 % (0.0-1.8); Eosinophils # (Auto) 0.3 K/mm3 (0.0-0.4); Eosinophils % (Auto) 2.3 % (0.0-4.3); Hemoglobin 9.3 gm/dl (11.8-15.2); Lymphocytes # (Auto) 1.2 K/mm3 (1.2-5.4); Lymphocytes % (Auto) 7.9 % (13.4-35.0); Mean Corpuscular HGB Conc 35 % (32-34); Mean Corpuscular Volume 92 fl (84-94); Monocytes # (Auto) 1.9 K/mm3 (0.0-0.8); Monocytes % (Auto) 12.9 % (0.0-7.3); Platelet Count 477 K/mm3 (140-440); Red Blood Count 2.95 M/mm3 (3.65-5.03); Red Cell Distribution Width 15.3 % (13.2-15.2)
[2019-03-02 06:16] LABS: Alanine Aminotransferase 12 units/L (7-56); Albumin 2.4 g/dL (3.9-5); BUN/Creatinine Ratio 8; Blood Urea Nitrogen 11 mg/dL (9-20); Calcium 8.4 mg/dL (8.4-10.2); Hemolysis Index 10
--- NOTE | 2019-03-02 08:55 | Progress Note ---
Assessment and Plan 1. Acute kidney injury: Vasomotor REJI superimposed on CKD stage 3 in the setting of volume depletion and UTI. Continue IV fluids. Renal function is better. Monitor renal function. Avoid nephrotoxic agents. Meds dosage based on GFR. 2. FEN: Hyponatremia, monitor. Add Salt tablets. Monitor lytes. 3. R sided nephrolithiasis with mild hydro: Followed by Urology. S/p cysto, retrograde pyelogram and stent. 4. UTI: Ceftriaxone. 5. Normochromic anemia: POA. 6. Thoracic compression fracture. 7. Cerebral palsy. Subjective Date of service: 03/02/19 Principal diagnosis: urosepsis Interval history: Patient was seen and examined at the bedside. Objective - Vital Signs Vital signs: Vital Signs - 12hr 03/01/19 03/02/19 03/02/19 21:11 03:18 07:45 Temperature 98.8 F 99.4 F 98.9 F Pulse Rate 86 89 Respiratory 20 20 20 Rate Blood Pressure 116/75 105/70 110/76 O2 Sat by Pulse 96 86 Oximetry 03/02/19 07:47 Temperature Pulse Rate 89 Respiratory Rate Blood Pressure O2 Sat by Pulse 96 Oximetry - General Appearance General appearance: well-developed, well-nourished, appears stated age, other (no distress) EENT: ATNC, PERRL Neck: supple Respiratory: Present: Clear to Ascultation Cardiology: regular, S1S2, no murmurs Gastrointestinal: normoactive bowel sounds, no tenderness, no distended Integumentary: no rash, warm and dry Neurologic: aphasia, other (able to move extremities) Musculoskeletal: other (no edema) - Lab 03/02/19 05:34 03/02/19 05:34 Most recent lab results Calcium 8.4 mg/dL (8.4-10.2) 03/02/19 05:34 Phosphorus 2.90 mg/dL (2.5-4.5) D 02/28/19 03:57 Magnesium 2.10 mg/dL (1.7-2.3) 02/27/19 03:59 92.1 mg/dL (0.1-20.0) H 02/25/19 Unknown 125 mmol/L 02/25/19 Unknown Medications & Allergies - Medications Allergies/Adverse Reactions: Allergies No Known Allergies Allergy (Verified 05/02/13 21:38) Home Medications: Home Medications Medication Instructions Recorded Confirmed Last Taken Type Docusate Sodium [Colace CAP] 100 mg PO BID #60 capsule 05/09/13 02/25/19 Unknown Rx cephALEXin [Keflex] 500 mg PO Q12HR #10 cap 11/21/18 02/25/19 Unknown Rx Acetaminophen [Acetaminophen TAB] 650 mg PO Q4H PRN tablet 03/02/[address] [Depakote Dr] 125 mg PO BID tablet 03/02/19 Unknown Rx Lactulose [Cephulac] 20 gm PO QDAY PRN oral.liqd 03/02/19 Unknown Rx Ondansetron [Zofran ODT TAB] 4 mg PO Q6H PRN tab.rapdis 03/02/19 Unknown Rx Pantoprazole [Protonix TAB] 40 mg PO QDAY tablet 03/02/19 Unknown Rx Sodium Chloride 1 gm PO TID tablet 03/02/19 Unknown Rx levETIRAcetam [Keppra TAB] 1,000 mg PO Q12HR tablet 03/02/19 Unknown Rx Active Medications: Generic Name Dose Route Start Last Admin Trade Name Freq PRN Reason Stop Dose Admin Acetaminophen 650 mg 02/24/19 21:24 02/27/19 08:16 Tylenol PO 650 mg Q4H PRN Administration Pain MILD(1-3)/Fever >100.5/WINKLER Benzonatate 100 mg 02/26/19 18:00 03/01/19 21:26 Tessalon Perles PO 100 mg Q8HR KANU Administration Divalproex Sodium 125 mg 02/25/19 10:00 03/01/19 21:[address] PO 125 mg BID KANU Administration Docusate Sodium 100 mg 02/25/19 10:00 03/01/19 21:27 Colace PO 100 mg BID KANU Administration Guaifenesin 10 ml 02/26/19 16:58 03/01/19 21:15 Guaifenesin Dm Syrup PO 10 ml Q4H PRN Administration Cough Hydromorphone HCl 0.5 mg 02/24/19 21:24 02/28/19 13:56 Dilaudid IV 0.5 mg Q3H PRN Administration Pain , Severe (7-10) Ceftriaxone Sodium 1 gm in 50 mls @ 100 mls/hr 02/25/19 22:00 03/01/19 21:27 Rocephin/Ns 1 Gm/50 Ml IV 100 mls/hr Q24H KANU Administration Protocol Dextrose/Sodium Chloride 1,000 mls @ 50 mls/hr 02/26/19 12:00 02/26/19 22:34 D5ns IV 100 mls/hr DIRECT KANU Administration Lactulose 20 gm 03/01/19 15:22 03/01/19 15:59 Cephulac PO 20 gm QDAY PRN Administration Constipation Levetiracetam 1,000 mg 02/25/19 10:00 03/01/19 21:26 Keppra PO 1,000 mg Q12HR KANU Administration Ondansetron HCl 4 mg 02/24/19 21:24 02/26/19 22:21 Zofran IV 4 mg Q8H PRN Administration Nausea And Vomiting Ondansetron HCl 4 mg 02/25/19 06:23 Zofran Odt PO Q6H PRN Nausea Pantoprazole Sodium 40 mg 02/25/19 10:00 03/01/19 09:33 Protonix PO 40 mg QDAY KANU Administration Sodium Bicarbonate 1,300 mg 03/01/19 22:44 Sodium Bicarbonate PO TID KANU Sodium Chloride 10 ml 02/24/19 22:00 03/01/19 09:33 Sodium Chloride Flush Syringe 10 Ml IV 10 ml BID KANU Administration Sodium Chloride 10 ml 02/24/19 21:24 Sodium Chloride Flush Syringe 10 Ml IV PRN PRN LINE FLUSH Sodium Chloride 1 gm 03/02/19 09:00 Sodium Chloride PO TID KANU
[2019-03-02] MEDS: SODIUM BICARBONATE PO SCH ×2 (09:27→13:31)
[2019-03-02] MEDS: KEPPRA PO SCH (09:27)
[2019-03-02] MEDS: PROTONIX PO SCH (09:27)
[2019-03-02] MEDS: COLACE PO SCH (09:27)
[2019-03-02] MEDS: SODIUM CHLORIDE PO SCH ×2 (09:27→13:31)
[2019-03-02] MEDS: TESSALON PERLES PO SCH ×2 (09:28→13:31)
[2019-03-02] MEDS: SODIUM CHLORIDE FLUSH SYRINGE 10 ML IV SCH (09:28)
[2019-03-02] MEDS: D5NS 1,000 ML IV SCH (09:34)
[2019-03-02] MEDS: DILAUDID IV PRN (12:29)
[2019-03-02 13:48] VITALS: BP 117/74
--- NOTE | 2019-03-02 16:23 | Discharge Summary ---
Providers - Providers Date of Admission: 02/24/19 14:18 Date of discharge: 03/02/19 Attending physician: ROSI PINA 02/25/19 06:22 Consult to Physician [CONS] Routine Comment: called dr. Vásquez/ kathy Consulting Provider: MIGUEL VÁSQUEZ Physician Instructions: Reason For Exam: REJI 02/25/19 13:15 Speech Therapy Evaluation and Treat [CONS] Routine Reason For Exam: dysphagia 02/25/19 17:31 Consult to Physician [CONS] Routine Comment: called answRony castle/ kathy Consulting Provider: LUH AVELAR Physician Instructions: Reason For Exam: T spine fx 02/26/19 10:16 Physical Therapy Evaluation and Treat [CONS] Routine Comment: Reason For Exam: Weakness 02/26/19 14:25 Consult to Physician [CONS] Routine Comment: Consulting Provider: KAYLA OSWALD Physician Instructions: Reason For Exam: Left kidney stone with hydronephrosis. Primary care physician: CLIFF VERNON Hospitalization Condition: Stable Hospital course: (1) Sepsis Current Visit: Yes Status: Acute Qualifiers: Sepsis acute organ dysfunction status: unspecified Plan to address problem: Resolved (2) Acute encephalopathy Current Visit: No Status: Acute Plan to address problem: Baseline (3) Cerebral palsy Current Visit: No Status: Chronic Qualifiers: Cerebral palsy type: unspecified type Qualified Code(s): G80.9 - Cerebral palsy, unspecified Plan to address problem: Supportive care (4) REJI (acute kidney injury) Current Visit: Yes Status: Acute Plan to address problem: IV fluids for now ATN (5) UTI (urinary tract infection) Current Visit: Yes Status: Acute Qualifiers: Urinary tract infection type: acute cystitis Plan to address problem: IV Rocephin for now pending cultures (6) Seizure disorder Current Visit: Yes Status: Chronic Plan to address problem: Cont Keppra (7) Hyponatremia Current Visit: Yes Status: Acute Plan to address problem: IV NS for now Check osmolality (8) Thoracic compression fracture Current Visit: Yes Status: Chronic Qualifiers: Thoracic vertebra fracture level: unspecified thoracic vertebra Plan to address problem: Ortho consult Probable conservative treatment (9) Elevated troponin Current Visit: Yes Status: Chronic Plan to address problem: Sec to REJI Disposition: [id number]/TX-03 SNF W [facility] - Discharge Diagnoses (1) Sepsis Status: Acute Qualifiers: Sepsis type: methicillin susceptible Staphylococcus aureus Sepsis acute organ dysfunction status: unspecified Qualified Code(s): A41.01 - Sepsis due to Methicillin susceptible Staphylococcus aureus (2) Acute encephalopathy Status: Acute (3) Cerebral palsy Status: Chronic Qualifiers: Cerebral palsy type: unspecified type Qualified Code(s): G80.9 - Cerebral palsy, unspecified (4) REJI (acute kidney injury) Status: Acute (5) UTI (urinary tract infection) Status: Acute Qualifiers: Urinary tract infection type: acute cystitis (6) Seizure disorder Status: Chronic (7) Hyponatremia Status: Acute (8) Thoracic compression fracture Status: Chronic Qualifiers: Thoracic vertebra fracture level: unspecified thoracic vertebra (9) Elevated troponin Status: Chronic (10) DVT prophylaxis Status: Acute Core Measure Documentation - Palliative Care Palliative Care/ Comfort Measures: Not Applicable - Core Measures Any of the following diagnoses?: none Exam - Constitutional Vitals: Temp Pulse Resp BP Pulse Ox 98.0 F 87 20 117/74 96 03/02/19 12:35 03/02/19 12:35 03/02/19 12:35 03/02/19 12:35 03/02/19 12:35 General appearance: Present: no acute distress, well-nourished - EENT Eyes: Present: PERRL ENT: hearing intact, clear oral mucosa - Neck Neck: Present: supple, normal ROM - Respiratory Respiratory effort: normal Respiratory: bilateral: CTA - Cardiovascular Heart rate: 76 Rhythm: regular Heart Sounds: Present: S1 & S2. Absent: rub, click - Extremities Extremities: no ischemia, pulses intact, pulses symmetrical, No edema Peripheral Pulses: within normal limits - Abdominal General gastrointestinal: Present: soft, non-tender, non-distended, normal bowel sounds Male genitourinary: Present: normal - Integumentary Integumentary: Present: clear, warm, dry - Musculoskeletal Musculoskeletal: gait normal, strength equal bilaterally - Psychiatric Psychiatric: appropriate mood/affect, intact judgment & insight, depressed - Neurologic Neurologic: CNII-XII intact, moves all extremities - Allied Health Allied health notes reviewed: nursing, case management Plan Weight Bearing Status: Weight Bear as Tolerated Diet: low salt Follow up with: CLIFF VERNON MD [Primary Care Provider] - 3-5 Days
== END 2019-03-02 17:55 | DRG 853 ==
LOC: ED 09:26 → 2B-ACE 14:18
PROVIDERS: ADMIT Internal Medicine; ATTEND Internal Medicine
PROC: 0T778DZ Dilation of Left Ureter with Intraluminal Device, Via Natural or Artificial Opening Endoscopic (ICD-10-PCS; principal; 2019-02-27)
PROC: BT1F1ZZ Fluoroscopy of Left Kidney, Ureter and Bladder using Low Osmolar Contrast (ICD-10-PCS; 2019-02-27)
DX: A41.01 Sepsis due to Methicillin susceptible Staphylococcus aureus (principal); G93.41 Metabolic encephalopathy; N17.0 Acute kidney failure with tubular necrosis; E87.1 Hypo-osmolality and hyponatremia; M48.54XA Collapsed vertebra, not elsewhere classified, thoracic region, initial encounter for fracture; N13.2 Hydronephrosis with renal and ureteral calculous obstruction; G80.9 Cerebral palsy, unspecified; N18.3 Chronic kidney disease, stage 3 (moderate); I73.9 Peripheral vascular disease, unspecified; K21.9 Gastro-esophageal reflux disease without esophagitis; G40.909 Epilepsy, unspecified, not intractable, without status epilepticus; E86.9 Volume depletion, unspecified; D64.9 Anemia, unspecified; Z79.899 Other long term (current) drug therapy; Z87.442 Personal history of urinary calculi; Z90.49 Acquired absence of other specified parts of digestive tract; Z82.49 Family history of ischemic heart disease and other diseases of the circulatory system; Z87.440 Personal history of urinary (tract) infections
CPT/HCPCS: 36415; 70450; 71045; 71250; 74176; 74420; 76770; 80048; 80053; 80061; 80164; 80307; 80320; 81001; 82140; 82570; 82962; 83036; 83735; 84100; 84300; 84484; 85007; 85025; 85610; 87040; 87086; 93005; 93010; G0378; C1758; C1769; C2617; G0480; J0692; J0696; J1170; J2405; J2704; J3010; J3370; J7030; J7040; J7042; J7050; J7120; Q9967

== ENCOUNTER 2019-03-26 16:15 | Outpatient (CLI) | payer MEDICARE ==
--- NOTE | 2019-03-26 16:58 | XRay Report ---
ABDOMEN 1 VIEW(S) INDICATION / CLINICAL INFORMATION: N20.0) KIDNEY STONE. COMPARISON: None available. FINDINGS: TUBES / LINES: None. BOWEL GAS PATTERN: Moderate distention of bowel at the upper abdomen is likely colon and stomach. ADDITIONAL FINDINGS: No suspicious calcification. Signer Name: Kyle Maldonado MD Signed: 03/26/2019 4:54 PM Workstation Name: [id number]
== END 2019-03-26 16:16 | disposition home or self-care (01) ==
LOC: XRAY 16:15
PROVIDERS: ATTEND Urology
DX: N20.0 Calculus of kidney (principal); K21.9 Gastro-esophageal reflux disease without esophagitis
CPT/HCPCS: 74018

== ENCOUNTER 2019-04-12 08:52 | Day surgery (SDC) | payer MEDICARE ==
--- NOTE | 2019-04-12 09:03 | Anesthesia Consultation ---
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
[2019-04-12] MEDS ORDERED: LACTATED RINGERS 1,000 ML ONE (09:29)
--- NOTE | 2019-04-12 09:49 | Anesthesia Day of Surgery ---
Anesthesia Day of Surgery - Day of Surgery Patient Examined: Yes Patient H&P Reviewed: Yes Patient is NPO: Yes
--- NOTE | 2019-04-12 09:56 | Anesthesia Consultation ---
Anesthesia Consult and Med Hx Date of service: 04/12/19 - Airway Anesthetic Teeth Evaluation: Poor ROM Head & Neck: Adequate Mental/Hyoid Distance: Adequate Mallampati Class: Class II Intubation Access Assessment: Probably Good - Pre-Operative Health Status ASA Pre-Surgery Classification: ASA3 Proposed Anesthetic Plan: General - Pulmonary Hx Smoking: No Hx Asthma: No COPD: No Hx Pneumonia: No Hx Sleep Apnea: No (SHIRAZ PRE SCREEN HIGH RISK) - Cardiovascular System Hx Hypertension: No Hx Peripheral Vascular Disease: Yes - Central Nervous System Hx Neuromuscular Disorder: Yes (cerebral palsy) Hx Seizures: Yes (ON DAILY MEDS) Hx Back Pain: Yes (HX FX THORACIC SPINE) Hx Psychiatric Problems: Yes (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 Sister present
[2019-04-12] MEDS ORDERED: ONDANSETRON 4 MG/2 ML INJ IV PRN (09:57)
[2019-04-12] MEDS ORDERED: fentaNYL 100 MCG/2 ML INJ IV PRN (09:57)
[2019-04-12] MEDS ORDERED: SODIUM CHLORIDE 0.9% 1000 ML 1,000 ML IV SCH (10:00)
[2019-04-12 10:05] LABS: Basophils % (Auto) 0.7 % (0.0-1.8); Eosinophils # (Auto) 0.2 K/mm3 (0.0-0.4); Hematocrit 34.8 % (35.5-45.6); Hemoglobin 11.9 gm/dl (11.8-15.2); Lymphocytes # (Auto) 1.5 K/mm3 (1.2-5.4); Lymphocytes % (Auto) 24.7 % (13.4-35.0); Mean Corpuscular HGB Conc 34 % (32-34); Mean Corpuscular Volume 95 fl (84-94); Monocytes # (Auto) 0.6 K/mm3 (0.0-0.8); Monocytes % (Auto) 9.3 % (0.0-7.3); Platelet Count 382 K/mm3 (140-440); Red Blood Count 3.68 M/mm3 (3.65-5.03); Red Cell Distribution Width 16.9 % (13.2-15.2)
[2019-04-12 10:54] LABS: BUN/Creatinine Ratio 11; Blood Urea Nitrogen 11 mg/dL (9-20); Calcium 8.9 mg/dL (8.4-10.2); Hemolysis Index 23
[2019-04-12] MEDS ORDERED: WATER FOR IRRIG STERILE 2000 ML IR ONE ×2 (11:01→12:06)
[2019-04-12] MEDS ORDERED: LIDOCAINE MPF (2%) 20 MG/1 ML VIAL 5 ML ONE (11:33)
[2019-04-12] MEDS ORDERED: fentaNYL 100 MCG/2 ML INJ ONE (11:33)
[2019-04-12] MEDS ORDERED: KETAMINE/STERILE WATER 50 MG/ML SYRINGE ONE (11:33)
[2019-04-12] MEDS ORDERED: PROPOFOL 200 MG/20 ML VIAL IV ONE (11:33)
[2019-04-12] MEDS ORDERED: ceFAZolin/STERILE WATER 2 GM/20 ML SYRINGE IV NR (11:35)
[2019-04-12] MEDS ORDERED: ePHEDrine SULFATE 50 MG/1 ML INJ ONE (12:00)
[2019-04-12] MEDS ORDERED: WATER FOR IRRIG STERILE 1,500 ML BOTTLE IR ONE (12:05)
--- NOTE | 2019-04-12 13:01 | Discharge Summary ---
Short Stay Discharge Plan Activity: other (no straining ) Weight Bearing Status: Full Weight Bearing Diet: low fat, low cholesterol, low salt Follow up with: CLIFF VERNON MD [Primary Care Provider] - 7 Days KAYLA OSWALD MD [Staff Physician] - 7 Days
--- NOTE | 2019-04-12 13:02 | Post Operative Note ---
Date of procedure: 04/12/19 Pre-op diagnosis: l hydro Post-op diagnosis: same Findings: scar Procedure: cysto ureteroscopy stent Anesthesia: THEODORE Surgeon: KAYLA OSWALD
--- NOTE | 2019-04-12 13:04 | Operative Report ---
PREOPERATIVE DIAGNOSES: Left ureteral stones, left renal stones, ureteropelvic junction obstruction. POSTOPERATIVE DIAGNOSES: Severe narrowing, left ureteropelvic junction. PROCEDURE: Cystoscopy, left flexible ureteroscopy with double-J stent exchange. SURGEON: Az Marshall MD ANESTHESIA: General. FINDINGS: This is a gentleman who had severe difficulty with flank pain and infection, and we had difficulty placing a stent. Eventually that was successful. He now presents for followup. DESCRIPTION OF PROCEDURE: The patient was brought and placed on the operating table. Following induction of anesthesia, placed in lithotomy position, prepped and draped in usual sterile fashion. The stent was extracted from the meatus. A wire had once again difficulty coming back on itself at the UPJ. We placed an open-ended up to that point and you could see that there was severe narrowing of the left UPJ. Eventually with some injection, we were able to get the wire above it. Flexible ureteroscopy and we even tried to dilate it with the ureteral access dilator, could not dilate it anymore. We just saw narrowing at the UPJ. The patient tolerated the procedure well. We were able to get a 7-Botswanan coiled in the kidney, brought to recovery room in stable condition, family noted. There is a large stone in lower pole, I do not think that is the problem, I think the problem is at the UPJ. I did not see a tumor. There might be a stone there, but I could not really tell, at least we placed a double J that is a little larger, so we can go back as a staged procedure. JOB# [id number] [place]
[2019-04-12 13:53] VITALS: BP 117/67
--- NOTE | 2019-04-12 15:32 | Fluoroscopy Report ---
FLUOROSCOPY RETROGRADE UROGRAPHY HISTORY: Left renal stone. FINDINGS: Fluoroscopy was provided by radiology during retrograde urography by the urologist. 5 fluor oscopic images are presented. [employer]mil[employer] film demonstrates a left ureteral stent in good position. Additio nal films demonstrate contrast agent within the left collecting system but no obvious ureteral fillin g defect. A left renal stone was seen. Left ureteroscopy was performed. A left ureteral stent was rep laced. The stone was not removed. The patient will be set up for lithotripsy per the operative notes. No images of the right collecting system are presented. IMPRESSION: Left renal stone. Left ureteral stent replacement. Signer Name: Kevin Herring Jr, MD Signed: 04/12/2019 3:27 PM Workstation Name: [id number]
== END 2019-04-12 14:45 | disposition home or self-care (01) ==
LOC: OR 08:52
PROVIDERS: ATTEND Urology
DX: N20.2 Calculus of kidney with calculus of ureter (principal); K21.9 Gastro-esophageal reflux disease without esophagitis; N18.9 Chronic kidney disease, unspecified; M19.90 Unspecified osteoarthritis, unspecified site; Z79.899 Other long term (current) drug therapy; Z87.440 Personal history of urinary (tract) infections; Z90.49 Acquired absence of other specified parts of digestive tract; Z98.890 Other specified postprocedural states
CPT/HCPCS: 36415; 52332; 74420; 80048; 85025; A4217; C1726; C1758; C1769; C2617; J2704; J3010; J7030; J7120; Q9967

== ENCOUNTER 2019-05-24 10:19 | Day surgery (SDC) | payer MEDICARE ==
--- NOTE | 2019-05-24 10:46 | Anesthesia Day of Surgery ---
Anesthesia Day of Surgery - Day of Surgery Patient Examined: Yes Patient H&P Reviewed: Yes Patient is NPO: Yes
--- NOTE | 2019-05-24 10:46 | Anesthesia Consultation ---
Anesthesia Consult and Med Hx Date of service: 05/24/19 - Airway Anesthetic Teeth Evaluation: Poor (multiple missing, broken teeth) ROM Head & Neck: Adequate Mental/Hyoid Distance: Adequate Mallampati Class: Class III Intubation Access Assessment: Possibly Difficult - Pre-Operative Health Status ASA Pre-Surgery Classification: ASA3 Proposed Anesthetic Plan: General - Pulmonary Hx Smoking: No Hx Asthma: No COPD: No Hx Pneumonia: No Hx Sleep Apnea: No (SHIRAZ PRE SCREEN HIGH RISK) - Cardiovascular System Hx Hypertension: No Hx Peripheral Vascular Disease: Yes - Central Nervous System Hx Neuromuscular Disorder: Yes (cerebral palsy) Hx Seizures: Yes (ON DAILY MEDS) Hx Back Pain: Yes (HX FX THORACIC SPINE) Hx Psychiatric Problems: Yes (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
[2019-05-24] MEDS ORDERED: LACTATED RINGERS 1,000 ML ONE (11:52)
[2019-05-24] MEDS ORDERED: LACTATED RINGERS 1,000 ML IV SCH (12:00)
[2019-05-24] MEDS ORDERED: fentaNYL 100 MCG/2 ML INJ ONE (12:41)
[2019-05-24] MEDS ORDERED: PROPOFOL 200 MG/20 ML VIAL IV ONE (12:41)
[2019-05-24] MEDS ORDERED: LIDOCAINE MPF (2%) 20 MG/1 ML VIAL 5 ML ONE (12:44)
[2019-05-24] MEDS ORDERED: SODIUM CHLORIDE P/F VIAL 10 ML 10 ML ONE (13:41)
[2019-05-24] MEDS ORDERED: ePHEDrine SULFATE 50 MG/1 ML INJ ONE (13:41)
[2019-05-24] MEDS ORDERED: WATER FOR IRRIG STERILE 2000 ML IR ONE (13:45)
[2019-05-24] MEDS ORDERED: PHENYLEPHRINE/NS 1,000 MCG/10 ML SYRINGE (OR USE) IV ONE (14:00)
[2019-05-24] MEDS ORDERED: FUROSEMIDE 40 MG/4 ML INJ ONE (14:03)
[2019-05-24] MEDS ORDERED: fentaNYL 100 MCG/2 ML INJ IV PRN (14:10)
--- NOTE | 2019-05-24 14:27 | Post Operative Note ---
Date of procedure: 05/24/19 Pre-op diagnosis: stone and severe L upj obst Post-op diagnosis: same Findings: as above Procedure: cysto rpg L ureteroscopy dil Anesthesia: TERRENCEA Surgeon: KAYLA OSWALD Estimated blood loss: none Pathology: none Condition: stable Disposition: PACU
--- NOTE | 2019-05-24 14:28 | Discharge Summary ---
Short Stay Discharge Plan Activity: other (no straining ) Weight Bearing Status: Partial Weight Bearing Diet: low fat, low cholesterol, low salt, diabetic Special Instructions: other (home with corley x 3 days ) Durable Medical Equipment Needed Upon Discharge: other (corley and j stent ) Follow up with: CLIFF VERNON MD [Primary Care Provider] - 7 Days
--- NOTE | 2019-05-24 15:21 | Post Anesthesia Evaluation ---
- Post Anesthesia Evaluation Patient Participated: Yes Airway Patent: Yes Stable Respiratory Function: Yes Nausea/Vomiting: No Temp > 96.8F: Yes Pain Manageable: Yes Adequeate Hydration: Yes Anesthesia Complications: No
--- NOTE | 2019-05-24 15:25 | Fluoroscopy Report ---
FLUOROSCOPY RETROGRADE UROGRAPHY FLUOROSCOPY URETER/NEPHROSTOMY DILATATION LEFT HISTORY: Calculus of left ureter FINDINGS: 2 minutes and 35 seconds of fluoroscopy time was provided by radiology during retrograde urography by the urologist. 10 fluoroscopic images are presented. The images demonstrate replacement of a left ureteral stent which is in good position on the final im age. Ureteroscopy and balloon dilatation of the left ureter was performed per the operative notes. No images of the right collecting system are presented. Please correlate with the procedural report as needed. Signer Name: Kevin Herring Jr, MD Signed: 05/24/2019 3:20 PM Workstation Name: [id number]
--- NOTE | 2019-05-24 16:27 | Cat Scan Report ---
CT ABDOMEN AND PELVIS WITHOUT CONTRAST HISTORY: Urinary stones COMPARISON: 02/26/2019 TECHNIQUE: Routine abdominal and pelvic CT exam performed without contrast. Lack of intravenous cont rast limits evaluation of the vascular and solid organs.. All CT scans at this location are performed using CT dose reduction for ALARA by means of automated exposure control. FINDINGS: CT ABDOMEN: Lung Bases: Mild subsegmental atelectasis in the included lung bases. Liver: No significant abnormality. Biliary: Gallbladder is surgically absent. Spleen: No significant abnormality. Unenlarged. Pancreas: No significant abnormality. Adrenals: No significant abnormality. Kidneys: A left ureteral stent has been placed since the prior study with resolution of the left-side d hydronephrosis. There are multiple residual stones in the left kidney measuring up to 1.5 cm. No de finite ureteral stones are identified. No right-sided renal or urinary stones are identified. Lymphatics: No lymphadenopathy. Vasculature: No significant abnormality. Bowel/Peritoneum: No significant abnormality. No free air. No free fluid. CT PELVIC: : There is a Moraes catheter in the urinary bladder. There are no bladder stones. Lymphatics: No lymphadenopathy. Osseous Structures: No aggressive appearing osseous lesions. Change chronic autofusion of the T12-L2 vertebral bodies as well as moderate to advanced diffuse spondylosis throughout the lower thoracic an d lumbar spine. Additional Findings: None IMPRESSION: 1. Left ureteral stent placement since the prior study on 02/26/2019 with resolution of previously sofie ntified hydronephrosis. No residual ureteral stones. 2. Multiple intrarenal stones in the left kidney measuring up to 1.5 cm. 3. No right sided urinary stones. Signer Name: Clemente Ralph MD Signed: 05/24/2019 4:23 PM Workstation Name: [id number]
--- NOTE | 2019-05-24 16:35 | Operative Report ---
PREOPERATIVE DIAGNOSIS: Left ureteropelvic junction narrowing and stone. POSTOPERATIVE DIAGNOSIS: Left uteropelvic junction narrowing and stone. PROCEDURE: Cystoscopy, ureteroscopy, attempted balloon dilatation of the left UPJ. SURGEON: Dr. Marshall. ANESTHESIA: General. FINDINGS: This is a gentleman at assisted with severe narrowing and irregularity at UPJ. We left the stent for about 6 weeks now presents for followup. DESCRIPTION OF PROCEDURE: The patient was brought to the operating room and placed on the operating table. Following induction of anesthesia, placed in lithotomy position, prepped and draped in usual sterile fashion. Cystourethroscopy showed the stent, which was withdrawn. Two wires were placed in the renal pelvis. We used the axial dilator once we saw that the flexible ureteroscope would not go into the renal pelvis. Once that was done, we thought we could get in, but it was way too tight. We tried a balloon, but we were hesitant to blow it up all the way. The patient tolerated the procedure well. Could not get into the kidney with scope. I discussed this with his sister. PLAN: Will be possible percutaneous nephrolithotomy. He will go for a stat CT. Double J 7 was replaced in the kidney and bladder. There was a little oozing from the prostatic varices, which was cauterized, so we left the catheter for a few days. JOB# [id number] [place]
[2019-05-24 18:25] VITALS: BP 120/62
== END 2019-05-24 17:45 | disposition hospice, home (50) ==
LOC: OR 10:19
PROVIDERS: ATTEND Urology
DX: N13.0 Hydronephrosis with ureteropelvic junction obstruction (principal); N20.1 Calculus of ureter; G93.40 Encephalopathy, unspecified; G40.901 Epilepsy, unspecified, not intractable, with status epilepticus; N18.9 Chronic kidney disease, unspecified; G93.41 Metabolic encephalopathy; G40.909 Epilepsy, unspecified, not intractable, without status epilepticus; I73.9 Peripheral vascular disease, unspecified; K21.9 Gastro-esophageal reflux disease without esophagitis; M19.90 Unspecified osteoarthritis, unspecified site; Z83.3 Family history of diabetes mellitus; Z79.899 Other long term (current) drug therapy; Z87.440 Personal history of urinary (tract) infections; Z90.49 Acquired absence of other specified parts of digestive tract; Z87.442 Personal history of urinary calculi; Z82.49 Family history of ischemic heart disease and other diseases of the circulatory system
CPT/HCPCS: 52344; 74176; 74420; 74485; 82803; A4217; C1726; C1758; C1769; C2617; J1940; J2370; J2704; J3010; J7120; Q9967

== ENCOUNTER 2019-08-08 09:56 | Day surgery (SDC) | payer MEDICARE ==
--- NOTE | 2019-08-08 11:11 | Anesthesia Day of Surgery ---
Anesthesia Day of Surgery - Day of Surgery Patient Examined: Yes Patient H&P Reviewed: Yes Patient is NPO: Yes
--- NOTE | 2019-08-08 11:14 | Anesthesia Consultation ---
Anesthesia Consult and Med Hx Date of service: 08/08/19 - Airway Anesthetic Teeth Evaluation: Poor, Chipped ROM Head & Neck: Adequate Mental/Hyoid Distance: Adequate Mallampati Class: Class III Intubation Access Assessment: Probably Good - Pre-Operative Health Status ASA Pre-Surgery Classification: ASA3 Proposed Anesthetic Plan: General - Pulmonary Hx Smoking: No Hx Asthma: No COPD: No Hx Pneumonia: No Hx Sleep Apnea: No (SHIRAZ PRE SCREEN HIGH RISK) - Cardiovascular System Hx Hypertension: No Hx Peripheral Vascular Disease: Yes - Central Nervous System Hx Neuromuscular Disorder: Yes (cerebral palsy) Hx Seizures: Yes (ON DAILY MEDS. 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 FBS 69) - Hematic Hx Anemia: Yes - Other Systems Hx Alcohol Use: No Hx Substance Use: No Hx Cancer: No - Additional Comments Anesthesia Medical History Comments: Was here [id number]
[2019-08-08] MEDS ORDERED: fentaNYL 100 MCG/2 ML INJ IV PRN (11:15)
[2019-08-08] MEDS ORDERED: ONDANSETRON 4 MG/2 ML INJ IV PRN (11:15)
[2019-08-08] MEDS ORDERED: FAMOTIDINE 20 MG/2 ML INJ IV ONE (11:24)
[2019-08-08] MEDS ORDERED: DEXTROSE 50% IN WATER (25GM) 50 ML SYRINGE IV ONE ×2 (11:25→12:47)
[2019-08-08] MEDS ORDERED: DEXTROSE 50% IN WATER (25GM) 50 ML VIAL IV ONE (11:25)
[2019-08-08] MEDS ORDERED: LACTATED RINGERS 1,000 ML IV SCH (12:00)
[2019-08-08] MEDS ORDERED: FAMOTIDINE 20 MG/2 ML INJ IV NR (12:00)
[2019-08-08] MEDS ORDERED: ceFAZolin/STERILE WATER 2 GM/20 ML SYRINGE IV NR (13:30)
[2019-08-08] MEDS ORDERED: LIDOCAINE MPF (2%) 20 MG/1 ML VIAL 5 ML ONE (13:41)
[2019-08-08] MEDS ORDERED: fentaNYL 100 MCG/2 ML INJ ONE (13:43)
[2019-08-08] MEDS ORDERED: PROPOFOL 200 MG/20 ML VIAL IV ONE (13:43)
--- NOTE | 2019-08-08 13:44 | Post Operative Note ---
Date of procedure: 08/08/19 Pre-op diagnosis: upj stone Post-op diagnosis: same Findings: stricture Procedure: cysto ureteroscopy Anesthesia: THEODORE Surgeon: KAYLA OSWALD Estimated blood loss: none Pathology: none Condition: stable Disposition: PACU
--- NOTE | 2019-08-08 13:47 | Discharge Summary ---
Short Stay Discharge Plan Activity: other Weight Bearing Status: Non-Weight Bearing Diet: low fat, low cholesterol, low salt, diabetic Special Instructions: other (inc fluids ) Durable Medical Equipment Needed Upon Discharge: other (has stent ) Follow up with: CLIFF VERNON MD [Primary Care Provider] - 7 Days
[2019-08-08] MEDS ORDERED: IOHEXOL 300 MG/ML 50ML IV ONE (14:31)
[2019-08-08] MEDS ORDERED: PHENYLEPHRINE/NS 1,000 MCG/10 ML SYRINGE (OR USE) IV ONE (15:08)
[2019-08-08] MEDS ORDERED: LACTATED RINGERS 1,000 ML ONE (15:08)
--- NOTE | 2019-08-08 16:05 | Fluoroscopy Report ---
7 fluoroscopic images submitted Indication: Intraoperative localization Impression: 7 images of the abdomen were submitted for documentation purposes with radiology involve ment. Left-sided retrograde pyelogram performed utilizing approximately 12 mL of Omnipaque 300. Ther e was stone removal with left-sided double-J ureteral stent exchange. Please refer to the operative n ote for complete details. Fluoroscopic time: 3.4 minutes Signer Name: Bishnu Jacobo MD Signed: 08/08/2019 4:01 PM Workstation Name: [id number]
[2019-08-08 16:32] VITALS: BP 134/68
--- NOTE | 2019-08-08 17:30 | Operative Report ---
PREOPERATIVE DIAGNOSES: Ureteropelvic junction stricture, renal stone. POSTOPERATIVE DIAGNOSES: Ureteropelvic junction stricture, renal stone. PROCEDURE: Cystoscopy with ureteral access sheath with ureteroscopy, laser of stone, retrograde double J replacement. SURGEON: Dr. Marshall. ANESTHESIA: General. FINDINGS: This is a gentleman who had previous urosepsis from UPJ stone and a stricture. We did gradual dilatation with a bigger and bigger stent, now presents for attempted nephroscopy. PROCEDURE IN DETAIL: The patient was brought to the operating room and placed on the operating table. Following the induction of anesthesia, placed in the lithotomy position, prepped and draped in usual sterile fashion. The stent was withdrawn and removed. The orifice was patulous and a wire coiled in the kidney. Using the access sheath, we dilated the UPJ as best as possible and this is the only time, we were able to get the ureteroscope into the kidney. We went through this narrowed stricture. Laser of the stone was carried out. The patient tolerated the procedure well. No significant complications. A 7-Uzbek double J coiled in the kidney and bladder. The patient tolerated the procedure well and brought to recovery in stable condition with a Moraes. Family notified. JOB# [id number] [place]
== END 2019-08-08 18:14 | disposition home health service (06) ==
LOC: OR 09:56
PROVIDERS: ATTEND Urology
DX: N20.0 Calculus of kidney (principal); Q62.11 Congenital occlusion of ureteropelvic junction; G40.901 Epilepsy, unspecified, not intractable, with status epilepticus; E11.22 Type 2 diabetes mellitus with diabetic chronic kidney disease; N18.9 Chronic kidney disease, unspecified; I73.9 Peripheral vascular disease, unspecified; K21.9 Gastro-esophageal reflux disease without esophagitis; M19.90 Unspecified osteoarthritis, unspecified site; E11.51 Type 2 diabetes mellitus with diabetic peripheral angiopathy without gangrene; E11.649 Type 2 diabetes mellitus with hypoglycemia without coma; D64.9 Anemia, unspecified; G93.41 Metabolic encephalopathy; Z79.899 Other long term (current) drug therapy; Z87.440 Personal history of urinary (tract) infections; Z90.49 Acquired absence of other specified parts of digestive tract; Z83.3 Family history of diabetes mellitus; Z82.49 Family history of ischemic heart disease and other diseases of the circulatory system
CPT/HCPCS: 52356; 74420; 82962; J0690; J2370; J2704; J3010; J7120; Q9967; C1726; C1758; C1769; C2617